=== PATIENT | male | born 1970 | race Caucasian/White ===

== ENCOUNTER 2018-03-29 12:52 | Inpatient (IN) ==
[2018-03-29] MEDS ORDERED: IOPAMIDOL 100 ML BOTTLE IV ONE (12:53)
[2018-03-29] MEDS ORDERED: 0.9 % SODIUM CHLORIDE 2,000 ML IV ONE (13:20)
[2018-03-29] MEDS ORDERED: ONDANSETRON 4 MG/2 ML VIAL IV ONE (13:20)
[2018-03-29] MEDS ORDERED: HYDROmorphone 2 MG/ML VIAL IV PRN ×2 (13:20→19:59)
--- NOTE | 2018-03-29 13:25 | Emergency Department Note ---
Abdominal Pain HPI - General Chief Complaint: Abdominal Pain Stated Complaint: abdominal pain Time Seen by Provider: 03/29/18 13:01 Source: patient Mode of arrival: ambulatory Limitations: no limitations - History of Present Illness HPI Narrative: 48-year-old male who was recently discharged from the hospital on 03/20/2018 after percutaneous drainage of a diverticular abscess. In the week that he has been out he has been actually doing better but then last night he had a hard bowel movement that he had to bear down for and this caused significant increase in his left lower quadrant pain. He was able to eat dinner but he had no appetite this morning and he was feeling nauseous. He continues to have significant left lower quadrant pain. No vomiting fever or shortness of breath I reviewed his discharge summary from Dr. Bob Kumar - Related Data Home Medications Medication Instructions Recorded Confirmed traZODone HCL [Desyrel] 50 mg PO HS 03/22/15 03/12/18 Previous Rx's Medication Instructions Recorded naproxen 375 mg tablet 375 mg PO Q8-12H PRN #90 tab 08/05/15 tamsulosin 0.4 mg capsule 0.4 mg PO QDAY #14 cap 01/29/17 mirabegron ER 50 mg 50 mg PO QDAY 90 Days #90 tab 05/01/17 tablet,extended release 24 hr carbidopa 37.5 mg-levodopa 150 1 tab PO TID #90 tab 05/06/17 mg-entacapone 200 mg tablet vilazodone 20 mg tablet 20 mg PO QDAY #30 tab 05/06/17 vilazodone 40 mg tablet 40 mg PO QDAY #30 tab 05/06/17 gabapentin 300 mg capsule 300 mg PO Q12H #60 cap 09/05/17 fexofenadine 180 mg tablet 180 mg PO Q24H #90 tab 11/04/17 ipratropium bromide 42 mcg (0.06 2 spray INTRANASAL QID #15 ml 11/04/17 %) nasal spray pantoprazole 40 mg tablet,delayed 40 mg PO QDAY #30 tab 11/04/17 release minocycline 50 mg capsule 50 mg PO QDAY #60 cap 01/17/18 armodafinil 200 mg tablet 200 mg PO QAM #30 tab 01/21/18 baclofen 20 mg tablet 20 mg PO TID PRN #270 tab 02/10/18 lorazepam 1 mg tablet 1 mg PO TID PRN #90 tab 02/10/18 albuterol sulfate HFA 90 2 inh INHALATION Q6-8H PRN #18 g 02/12/18 mcg/actuation aerosol inhaler fluticasone 110 mcg/actuation HFA 2 puff INHALATION Q12H #12 g 02/12/18 aerosol inhaler alprazolam 2 mg tablet 2 mg PO .COMPLEX #2 tab 02/20/18 ciprofloxacin 500 mg tablet 500 mg PO BID #28 tab 02/28/18 Amoxicillin/Potassium Clav 875 mg PO TID 10 Days #30 tab 03/07/18 [Augmentin] Ofloxacin 10 ml OT BID 14 Days #1 drops 03/07/18 Ciprofloxacin [Cipro] 500 mg PO BID #40 tab 03/20/18 Potassium Chloride [K-Tab ER] 20 meq PO BID #10 tablet.er 03/20/18 metroNIDAZOLE [Flagyl] 500 mg PO Q8 #60 tab 03/20/18 Allergies Allergy/AdvReac Type Severity Reaction Status Date / Time clindamycin Allergy Mild Rash Verified 03/29/18 12:55 cephalexin AdvReac Mild Hives Verified 03/29/18 12:55 hydrocodone [HYDROCODONE] AdvReac Mild INSOMNIA, Verified 03/29/18 12:55 NAUSEA lidocaine AdvReac Mild Rash Verified 03/29/18 12:55 metronidazole AdvReac Mild Hives Verified 03/29/18 12:55 tramadol [TRAMADOL] AdvReac Mild HYPERACTIVITY, Verified 03/29/18 12:55 NAUSEA Opioids Allergy Mild Anxiety Uncoded 03/12/18 15:38 Review of Systems All systems ED: reviewed and negative except as stated. Abdominal Pain PMH - Past Medical History Attestation: Yes: The following information was validated with the patient. [facility] Narrative: Family History (Last Reviewed 12/20/17 @ 11:23 by Emilia Petersen CMA) Mother Rheumatoid arthritis Father Type 2 diabetes mellitus Essential hypertension Malignant neoplasm of prostate Aunt Parkinson's Disease Brother Parkinson's Disease Maternal Grandmother Parkinson's Disease Medical History (Last Reviewed 12/20/17 @ 11:23 by Emilia Petersen CMA) Testicular pain, right (Chronic) Ankle sprain and strain (Chronic) Back pain with left-sided radiculopathy (Chronic) Perianal abscess (Resolved) Neurogenic bladder (Chronic) Urinary hesitancy (Chronic) Weakness (Chronic) Tremor (Chronic) Parkinson's disease (Chronic 10/08/14) Neck pain (Chronic) Migraine (Chronic) 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) Insomnia (Chronic) Gastritis, acute (Chronic) Gait abnormality (Chronic) Drug abuse (Resolved) Depression (Chronic) Asthma (Chronic) Anxiety (Chronic) Bronchitis (Resolved) Contusion of right foot including toes (Resolved) Epidermal inclusion cyst (Resolved 07/29/14) Laceration (Resolved 04/23/13) Left ankle sprain (Resolved) Past Surgical History (Last Reviewed 12/20/17 @ 11:23 by Emilia Petersen CMA) History of arthroplasty (Resolved 04/26/14) History of colonoscopy (Resolved) History of inguinal hernia repair (Resolved) History of perforation of tympanic membrane (Resolved) History of sinus surgery (Resolved) History of tonsillectomy (Resolved) Status post biopsy of skin (Resolved 07/29/14) Medical history: Reports: other (parkinson's disease, peripheral neuropathy, poor dentition) Family history: Reports: no significant family history - Social History Smoking status: Current every day smoker Alcohol use: Reports: Rarely Drug use: Reports: unknown Physical Exam Thin male no acute distress .normocephalic atraumatic. Conjunctive are clear sclerae white and anicteric. No nasal discharge or congestion. Oropharynx pink and moist. Neck is supple without lymphadenopathy thyromegaly or carotid bruit. Heart is regular rate and rhythm no murmur appreciated. Lungs clear to auscultation bilaterally without wheezes rales rhonchi or respiratory distress. Abdomen soft tender at the left lower quadrant. No peritoneal signs or guarding. No rigidity. No pedal edema. +2 radial pulse. Alert oriented able answer to questions appropriately. Limitations: no limitations Course Vital Signs Temperature 98.1 F 03/29/18 12:52 Pulse Rate 96 H 03/29/18 12:52 Respiratory Rate 20 03/29/18 12:52 Blood Pressure 136/85 03/29/18 12:52 Pulse Oximetry (%) 100 03/29/18 12:52 Temperature 98.1 F 03/29/18 12:52 Pulse Rate 79 03/29/18 15:16 Respiratory Rate 20 03/29/18 12:52 Blood Pressure 133/88 03/29/18 15:16 Pulse Oximetry (%) 100 03/29/18 15:16 Abdominal Pain - Lab Data Lab results reviewed: Yes I reviewed the patient's lab results. Result diagrams: 03/29/18 13:30 03/29/18 13:30 Lab Results 03/29/18 03/29/18 03/29/18 Range/Units 13:30 13:30 13:51 WBC 13.5 H (4.5-11.0) K/mcL RBC 4.64 (4.50-5.90) M/mcL Hgb 14.4 (13.5-16.5) g/dL Hct 43.0 (41.0-55.0) % POC Hct 45.0 (41.0-55.0) % MCV 92.7 (80.0-100.0) fL MCH 30.9 (26.0-34.0) pg MCHC 33.3 (31.0-36.0) g/dL RDW 13.8 (11.5-14.5) % Plt Count 567 H (140-440) K/mcL MPV 9.4 (7.4-10.4) fL Gran % 75.7 (38.0-78.0) % Lymph % (Auto) 15.8 (15.5-49.0) % Newton % (Auto) 7.3 (1.0-12.0) % Eos % (Auto) 0.5 (0.0-7.0) % Baso % (Auto) 0.7 (0.0-2.0) % Gran # 10.2 H (1.8-8.0) K/mcL Lymph # (Auto) 2.1 (1.5-4.8) K/mcL Newton # (Auto) 1.0 H (0.1-0.9) K/mcL Eos # (Auto) 0.1 (0.0-0.7) K/mcL Baso # (Auto) 0.1 (0.0-0.3) K/mcL VBG Lactic Acid 0.8 (0.5-2.0) mmol/L POC Sodium 139 (133-145) mmol/L Sodium 135 (133-145) mmol/L POC Potassium 4.2 (3.3-5.1) mmol/L Potassium 4.3 (3.3-5.1) mmol/L POC Chloride 101 (96-108) mmol/L Chloride 96 (96-108) mmol/L Carbon Dioxide 24 (22-30) mmol/L POC Total CO2 24 (22-30) mmol/L Anion Gap 15.0 (8-16) POC BUN 11 (6-20) mg/dl BUN 11 (6-20) mg/dl Creatinine 0.8 (0.7-1.2) mg/dl POC Creatinine 0.8 (0.7-1.2) mg/dl GFR Calculation 106 Glucose 113 H (70-105) mg/dL POC Glucose 117 H (70-105) mg/dL Calcium 9.7 (8.6-10.4) mg/dl POC WB Ioniz Calcium 1.21 (1.16-1.32) mmol/L Total Bilirubin 0.5 (0.0-1.0) mg/dL AST 14 (0-37) U/l ALT 8 (0-40) U/l Alkaline Phosphatase 71 (39-117) U/L Total Protein 8.0 (5.9-8.4) gm/dL Albumin 4.2 (3.2-5.2) gm/dL Globulin 3.8 H (2.2-3.7) gm/dL Albumin/Globulin Ratio 1.1 (1.0-2.3) Lipase 68 H (7-60) U/L - Radiology Data Radiology results reviewed: Yes I reviewed the patient's radiology results. 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 Treatment started with Zofran Dilaudid and IV fluids I discussed patient's results with him. I then discussed the patient with Dr. Bob Kumar, general surgeon. He agreed to accept the patient for further care and evaluation in the hospital. I wrote transition orders Disposition: Xfer As Inpt ([facility]) Condition: Serious Referrals: Pelon Stephens MD [Primary Care Provider] -
[2018-03-29 14:04] LABS: Basophils # (Auto) 0.1 K/mcL (0.0-0.3); Basophils % (Auto) 0.7 % (0.0-2.0); Eosinophils # (Auto) 0.1 K/mcL (0.0-0.7); Eosinophils % (Auto) 0.5 % (0.0-7.0); Granulocytes % (Auto) 75.7 % (38.0-78.0); Lymphocytes # (Auto) 2.1 K/mcL (1.5-4.8); Lymphocytes % (Auto) 15.8 % (15.5-49.0); Mean Cell Volume 92.7 fL (80.0-100.0); Mean Corpuscular HGB Conc 33.3 g/dL (31.0-36.0); Mean Corpuscular Hemoglobin 30.9 pg (26.0-34.0); Monocytes % (Auto) 7.3 % (1.0-12.0); Platelet Count 567 K/mcL (140-440); RBC 4.64 M/mcL (4.50-5.90); Red Cell Distribution Width 13.8 % (11.5-14.5)
[2018-03-29 14:16] LABS: ALT/SGPT 8 U/l (0-40); Albumin 4.2 gm/dL (3.2-5.2); Albumin/Globulin Ratio 1.1 (1.0-2.3); Alkaline Phosphatase 71 U/L (39-117); Blood Urea Nitrogen 11 mg/dl (6-20); Lipase 68 U/L (7-60)
--- NOTE | 2018-03-29 16:25 | Cat Scan Report ---
CLINICAL INFORMATION: History of diverticulitis with pelvic abscesses. A right-sided abscess was drained percutaneously. Patient now presents with increasing pain COMPARISON: Previous CT scans dated 03/16/2018, 03/12/2018, 03/07/2018 TECHNIQUE: Axial images were obtained through the abdomen and pelvis. Sagittally and coronally reformatted images. 80 mL contrast material injected intravenously. Oral contrast material was given FINDINGS: There is contrast material throughout the colon. There is small bowel contrast material. No mechanical small bowel obstruction. No small bowel dilatation. No pneumoperitoneum. No biliary or portal venous gas. No pneumatosis. Patient has a history of diverticulitis with pelvic abscesses. Patient previously (03/13/2018) underwent transgluteal drainage of a right pelvic abscess. Drainage catheter has been removed. There has been recurrence of of the pericolonic abscess. This now has a thick irregular wall and contains fluid and gas. This measures approximately 4.8 x 3.8 x 2.9 cm. There is a second abscess higher in the pelvis and to the left of midline. This is adjacent to sigmoid colon and small bowel. This is irregular in configuration. This has a thick wall and contains fluid and some gas. This measures approximately 2.6 x 3.7 x 2.7 cm. No significant free intraperitoneal fluid. Lung bases are negative. No parenchymal infiltrate or mass. No pleural fluid. No pericardial fluid. Negative liver. No focal intrahepatic abnormalities. Liver contour is smooth. Gallbladder is present. There may be subtle gallstones although this is not definite. No dilated bile ducts. Pancreas is negative. No pancreatic mass. Spleen is negative. No splenomegaly. Adrenal glands are negative. Kidneys are negative. No hydronephrosis. No solid or cystic mass. No hydroureter. Urinary bladder is negative. No bladder calculi. Lumbar spine, sacrum, and pelvis are negative. IMPRESSION: 1. Recurrent right pelvic, pericolonic abscess 2. Second abscess located higher in the pelvis and to the left of midline. This is adjacent to small and large bowel. The exam was performed using radiation dose optimization techniques including, but not limited to, automated exposure control, adjustment of the mA and/or kV according to patient size and use of iterative reconstruction technique. Interpreted and Authenticated by: Jose Medina 03/29/18
[2018-03-29] MEDS ORDERED: metroNIDAZOLE 500 MG/100 ML BAG IV ONE (16:35)
[2018-03-29] MEDS ORDERED: CIPROFLOXACIN 400 MG/200 ML BAG IV ONE (16:35)
[2018-03-29] MEDS ORDERED: ONDANSETRON 4 MG/2 ML VIAL IV PRN (16:36)
--- NOTE | 2018-03-29 20:12 | General Surg History&Physical ---
History of Present Illness Patient information: Note initiated : 03/29/18 at 8:10 pm Service Date, if different from initiated Date: [] Patient: Se Mccoy a 48 y/o M admitted on 03/29/18 for abdominal pain. Chief Complaint: [] HPI: Mr. Mccoy is a 48 year old M admitted with chronic persistent diverticulitis and multiple pelvic abscesses. The patient initially presented on 03 December with evidence of acute diverticulitis.. He was treated with oral antibiotics and did well until 07 March with he again developed severe left lower quadrant and suprapubic pain.. He again was noted to have diverticulitis and was treated with oral medication but did not improve. He was admitted to the hospital on 12 March with white blood count of 18,000 and history of severe pain fever and chills. hE HAD ACUTE diverticulitis with pericolonic abscess and pelvic abscess. Percutaneous drainage of the pelvic abscess was completed on 13 March.. Fluid did not culture any organisms.. Follow-up CT showed resolution of the pelvic abscess but too small collections that were new. The patient remained stable and was discharged home on April 06 on oral ciprofloxacin and Flagyl. The patient states that he initially improved but started having more pain on yesterday. While having a bowel movement earlier today he had severe pain and nausea. CT of the abdomen shows recurrence of the right-sided pelvic abscess and 2 other abscesses in the pelvis on the left side. He has failed nonoperative treatment and is counseled for sigmoid colectomy with Rowe's procedure. He is advised that he will have re- anastomosis in about 3 months if he does well otherwise. Review of Systems - Constitutional anorexia, fatigue, fever(s), headache(s), malaise, night sweats, weakness - EENT Ears: left: ear discharge, tinnitus, bilateral: decreased hearing, earache Nose, mouth and throat: abnormal hearing, headache(s), neck pain - Cardiovascular dyspnea on exertion, no chest pain at rest, no chest pain with activity, no pedal edema - Respiratory wheezing, no cough, no pain on inspirtation - Gastrointestinal abdominal pain, bloating, constipation, heartburn, nausea - Genitourinary change in urinary stream, difficulty urinating, urinary frequency, urinary hesitancy, urinary urgency - Musculoskeletal abnormal gait, arthralgias, back pain, neck pain, radiating pain into limb - Integumentary no bleeding lesions, no changing lesions, no new lesions, no pruritus, no rash - Neurological abnormal gait, abnormal movements, dizziness, headache(s), lack of coordination , paresthesias, tremor(s), weakness - Psychiatric abnormal sleep pattern, anxiety, depression - Endocrine excessive sweating, fatigue - Hematologic/Lymphatic no easy bleeding, no easy bruising, no lymphadenopathy - Allergic/Immunologic no tongue swelling, no throat swelling, no seasonal rhinorrhea, no uticaria, no wheezing, no lip swelling Past History Past medical history: Parkinson's disease Chronic otitis media Chronic asthma Degenerative arthritis Degenerative disc disease Past surgical history: Right inguinal hernia repair Past family history: Parkinson's disease Diabetes mellitus Hypertension Past social history: Presently disabled Reveal a smoker Occasional drinker of alcohol Frequent marijuana use Medications and Allergies Home Medications Medication Instructions Recorded Confirmed Type traZODone HCL [Desyrel] 50 mg PO HS 03/22/15 03/29/18 History naproxen 375 mg tablet 375 mg PO Q8-12H PRN #90 tab 08/05/15 03/29/18 Rx tamsulosin 0.4 mg capsule 0.4 mg PO QDAY #14 cap 01/29/17 03/29/18 Rx mirabegron ER 50 mg 50 mg PO QDAY 90 Days #90 tab 05/01/17 03/29/18 Rx tablet,extended release 24 hr carbidopa 37.5 mg-levodopa 150 1 tab PO TID #90 tab 05/06/17 03/29/18 Rx mg-entacapone 200 mg tablet vilazodone 20 mg tablet 20 mg PO QDAY #30 tab 05/06/17 03/29/18 Rx vilazodone 40 mg tablet 40 mg PO QDAY #30 tab 05/06/17 03/29/18 Rx gabapentin 300 mg capsule 300 mg PO Q12H #60 cap 09/05/17 03/29/18 Rx fexofenadine 180 mg tablet 180 mg PO Q24H #90 tab 11/04/17 03/29/18 Rx ipratropium bromide 42 mcg (0.06 2 spray INTRANASAL QID #15 ml 11/04/17 Rx %) nasal spray pantoprazole 40 mg tablet,delayed 40 mg PO QDAY #30 tab 06/18/18 11/10/18 Rx release minocycline 50 mg capsule 50 mg PO QDAY #60 cap 01/17/18 03/29/18 Rx armodafinil 200 mg tablet 200 mg PO QAM #30 tab 01/21/18 03/29/18 Rx baclofen 20 mg tablet 20 mg PO TID PRN #270 tab 02/10/18 03/29/18 Rx lorazepam 1 mg tablet 1 mg PO TID PRN #90 tab 02/10/18 03/29/18 Rx albuterol sulfate HFA 90 2 inh INHALATION Q6-8H PRN #18 g 02/12/18 03/29/18 Rx mcg/actuation aerosol inhaler fluticasone 110 mcg/actuation HFA 2 puff INHALATION Q12H #12 g 02/12/18 Rx aerosol inhaler alprazolam 2 mg tablet 2 mg PO .COMPLEX #2 tab 02/20/18 03/29/18 Rx ciprofloxacin 500 mg tablet 500 mg PO BID #28 tab 02/28/18 03/29/18 Rx Amoxicillin/Potassium Clav 875 mg PO TID 10 Days #30 tab 03/07/18 03/29/18 Rx [Augmentin] Ofloxacin 10 ml OT BID 14 Days #1 drops 03/07/18 03/29/18 Rx Ciprofloxacin [Cipro] 500 mg PO BID #40 tab 03/20/18 03/29/18 Rx Potassium Chloride [K-Tab ER] 20 meq PO BID #10 tablet.er 03/20/18 03/29/18 Rx metroNIDAZOLE [Flagyl] 500 mg PO Q8 #60 tab 03/20/18 03/29/18 Rx Allergies Allergy/AdvReac Type Severity Reaction Status Date / Time clindamycin Allergy Mild Rash Verified 03/29/18 12:55 cephalexin AdvReac Mild Hives Verified 03/29/18 12:55 hydrocodone [HYDROCODONE] AdvReac Mild INSOMNIA, Verified 03/29/18 12:55 NAUSEA lidocaine AdvReac Mild Rash Verified 03/29/18 12:55 metronidazole AdvReac Mild Hives Verified 03/29/18 12:55 tramadol [TRAMADOL] AdvReac Mild HYPERACTIVITY, Verified 03/29/18 12:55 NAUSEA Opioids Allergy Mild Anxiety Uncoded 03/12/18 15:38 Exam Temp Pulse Resp BP Pulse Ox 98.2 F 79 18 133/88 98 03/29/18 17:55 03/29/18 17:55 03/29/18 17:55 03/29/18 17:55 03/29/18 17:55 - General physical appearance well developed, well nourished, no distress, moderate pain, chronically ill - Eyes PERRL, normal ocular movement - ENT normal pinna, normal nares, normal mucosa, no congestion, decreased hearing, other (llleft otitis media chronic) - Head Head exam IM: Present: atraumatic, normocephalic - Neck no masses, no bruits, trachea midline, no lymphadenopathy, no venous distension - Cardiovascular Cardiovascular exam IM: Present: normal rate and rhythm - Respiratory normal expansion, normal respiratory effort, clear to percussion, clear to auscultation - Abdomen Abdomen: Present: soft, tender ( tenderness to palpation in left lower quadrant AND SUPRAPUBIC AREA; good active bowel sounds), bowel sounds Hernia: Present: none - Genitourinary Present: normal penis with no external lesions - Integumentary Present: no rash, no growths, no abnormal pigmentation - Neurologic Present: normal coordination, normal sensation, other ( unsteady gait and stance) - Musculoskeletal Present: normal posture - Psychiatric Present: oriented to time, oriented to person, oriented to place, speech is normal, memory intact Assessment and Plan (1) Diverticular disease of intestine with perforation and abscess Scheduled for LAPAROTOMY WITH sigmoid resection and colostomy in the morning Continue antibiotics IV Status: Acute (2) Otitis media of left ear with rupture of tympanic membrane Continue home medications Status: Acute (3) Depression Restart home medications as soon as possible Status: Chronic (4) Neurogenic bladder Hull catheter postoperatively Status: Chronic (5) Parkinson's disease Restart home meds as soon as possible Status: Chronic Comment: with profound fatigue and lethargy, requiring stimulants for control
[2018-03-29] MEDS ORDERED: 0.9 % SODIUM CHLORIDE 250 ML IV SCH (20:15)
[2018-03-29] MEDS ORDERED: BACLOFEN 10 MG TABLET PO PRN (20:42)
[2018-03-29] MEDS ORDERED: ALBUTEROL SULFATE 1 PUFF INHALER INH PRN (20:42)
[2018-03-29] MEDS ORDERED: LORazepam 2 MG/ML VIAL IV PRN (20:46)
[2018-03-29] MEDS: GABAPENTIN 300 MG CAPSULE PO SCH (20:54)
[2018-03-29] MEDS: ENTACAPONE 200 MG PO SCH (20:56)
[2018-03-29] MEDS: CARBIDOPA PO SCH (20:56)
[2018-03-29] MEDS: LEVODOPA PO SCH (20:56)
[2018-03-29] MEDS: OFLOXACIN BOTH EARS SCH (20:57)
[2018-03-29] MEDS ORDERED: LORazepam 2 MG/ML VIAL IV ONE (21:00)
[2018-03-29 21:11] LABS: Basophils # (Auto) 0.1 K/mcL (0.0-0.3); Basophils % (Auto) 0.6 % (0.0-2.0); Eosinophils # (Auto) 0.1 K/mcL (0.0-0.7); Eosinophils % (Auto) 0.6 % (0.0-7.0); Granulocytes % (Auto) 68.8 % (38.0-78.0); Lymphocytes # (Auto) 2.6 K/mcL (1.5-4.8); Lymphocytes % (Auto) 21.7 % (15.5-49.0); Mean Cell Volume 91.8 fL (80.0-100.0); Mean Corpuscular HGB Conc 34.1 g/dL (31.0-36.0); Mean Corpuscular Hemoglobin 31.3 pg (26.0-34.0); Monocytes % (Auto) 8.3 % (1.0-12.0); Platelet Count 519 K/mcL (140-440); RBC 4.41 M/mcL (4.50-5.90); Red Cell Distribution Width 13.4 % (11.5-14.5)
[2018-03-29] MEDS ORDERED: traZODone HCL 50 MG TABLET ONE (22:17)
[2018-03-29] MEDS: 0.9 % SODIUM CHLORIDE 1,000 ML IV SCH (23:58)
[2018-03-29] MEDS: NICOTINE 21 MG PATCH TOPICAL SCH (23:59)
[2018-03-30] MEDS: 0.9 % SODIUM CHLORIDE 1,000 ML IV SCH ×6 (01:20→21:52)
[2018-03-30] MEDS: metroNIDAZOLE 500 MG/100 ML BAG IV SCH ×3 (01:22→12:00)
[2018-03-30 05:26] LABS: Basophils # (Auto) 0.1 K/mcL (0.0-0.3); Basophils % (Auto) 0.5 % (0.0-2.0); Eosinophils # (Auto) 0.1 K/mcL (0.0-0.7); Eosinophils % (Auto) 0.5 % (0.0-7.0); Granulocytes % (Auto) 70.9 % (38.0-78.0); Lymphocytes # (Auto) 2.2 K/mcL (1.5-4.8); Lymphocytes % (Auto) 19.3 % (15.5-49.0); Mean Cell Volume 92.9 fL (80.0-100.0); Mean Corpuscular HGB Conc 33.7 g/dL (31.0-36.0); Mean Corpuscular Hemoglobin 31.3 pg (26.0-34.0); Monocytes % (Auto) 8.8 % (1.0-12.0); Platelet Count 492 K/mcL (140-440); RBC 4.22 M/mcL (4.50-5.90); Red Cell Distribution Width 13.4 % (11.5-14.5)
[2018-03-30 06:01] LABS: ALT/SGPT < 5 U/l (0-40); Albumin 3.8 gm/dL (3.2-5.2); Albumin/Globulin Ratio 1.2 (1.0-2.3); Alkaline Phosphatase 61 U/L (39-117); Bilirubin,Direct < 0.2 mg/dL (0.0-0.3); Blood Urea Nitrogen 8 mg/dl (6-20); Gamma Glutamyl Transpeptidase 26 U/L (8-61); Uric Acid 4.3 mg/dL (2.5-8.0)
[2018-03-30] MEDS ORDERED: CIPROFLOXACIN 400 MG/200 ML BAG IV SCH (07:00)
[2018-03-30] MEDS ORDERED: PANTOPRAZOLE 40 MG VIAL IV SCH (07:30)
[2018-03-30] MEDS ORDERED: LIDOCAINE HCL/PF 100 MG/5 ML SYRINGE IV ONE (09:20)
[2018-03-30] MEDS ORDERED: GLYCOPYRROLATE 0.2 MG/ML VIAL IV ONE (09:20)
[2018-03-30] MEDS ORDERED: MIDAZOLAM 5 MG/5 ML VIAL IV ONE (09:20)
[2018-03-30] MEDS ORDERED: ROCURONIUM 10 MG/ML ML IV ONE (09:20)
[2018-03-30] MEDS ORDERED: DEXAMETHASONE 10 MG/ML VIAL IV ONE (09:20)
[2018-03-30] MEDS ORDERED: NEOSTIGMINE 1 MG/ML VIAL IV ONE (09:20)
[2018-03-30] MEDS ORDERED: PROPOFOL 200 MG/20 ML VIAL IV ONE (09:20)
[2018-03-30] MEDS ORDERED: HETASTARCH 6% 500 ML BAG IV ONE (09:20)
[2018-03-30] MEDS ORDERED: fentaNYL 250 MCG/5 ML VIAL IV ONE (09:20)
[2018-03-30] MEDS ORDERED: SUCCINYLCHOLINE 20 MG/ML ML IV ONE (09:20)
[2018-03-30] MEDS ORDERED: ONDANSETRON 4 MG/2 ML VIAL IV ONE (09:20)
[2018-03-30] MEDS: ENTACAPONE 200 MG PO SCH ×3 (09:22→21:17)
[2018-03-30] MEDS: OFLOXACIN BOTH EARS SCH ×2 (09:22→21:17)
[2018-03-30] MEDS: CARBIDOPA PO SCH ×3 (09:22→21:17)
[2018-03-30] MEDS: GABAPENTIN 300 MG CAPSULE PO SCH ×2 (09:22→21:17)
[2018-03-30] MEDS: LEVODOPA PO SCH ×3 (09:22→21:17)
[2018-03-30] MEDS: NICOTINE 21 MG PATCH TOPICAL SCH (09:23)
[2018-03-30] MEDS ORDERED: BACITRACIN 50,000 UNIT VIAL IR ONE ×2 (10:45→11:12)
[2018-03-30] MEDS ORDERED: ACETAMINOPHEN 1,000 MG/100 ML BOTTLE IV ONE (11:35)
[2018-03-30] MEDS ORDERED: FLUMAZENIL 0.1 MG/ML ML IV PRN (11:35)
[2018-03-30] MEDS ORDERED: IPRATROPIUM/ALBUTEROL 3 ML AMPUL.NEB NEB PRN (11:35)
[2018-03-30] MEDS ORDERED: LACTATED RINGERS 250 ML IV PRN (11:35)
[2018-03-30] MEDS ORDERED: diphenhydrAMINE 50 MG/ML VIAL IV PRN (11:35)
[2018-03-30] MEDS ORDERED: PROMETHAZINE 25 MG/ML VIAL IV PRN (11:35)
[2018-03-30] MEDS ORDERED: NALOXONE HCL 0.4 MG/ML VIAL IV PRN (11:35)
[2018-03-30] MEDS ORDERED: BENZOCAINE/MENTHOL 1 LOZENGE PO PRN (11:35)
[2018-03-30] MEDS ORDERED: ONDANSETRON 4 MG/2 ML VIAL IV PRN (11:35)
[2018-03-30] MEDS ORDERED: LACTATED RINGERS 1,000 ML IV SCH (11:45)
--- NOTE | 2018-03-30 11:56 | Brief Operative Note ---
Date of procedure: 03/30/18 Pre-op diagnosis: recurrent diverticulitis with pelvic abscesses Post-op diagnosis: other (recurrent diverticulitis with multiple pelvis abscesses) Procedure: sigmoid colectomy with drainage of multiple pelvic abscesses and colostomy Grafts/Implants: No (ELEAZAR DRAIN X 2 ) Anesthesia: GETA Findings: EXTENSIVE INFLAMMATORY DISEASE OF PELVIS WITH 5 SEPARATE DEFINED ABSCESSES AND INFLAMMATION INVOLVING BLADDER,SIGMOID COLON AND RECTUM AND 4 LOOPS OF SMALL BOWEL AND OMENTUM Complications: none Surgeon: Shanell Kumar Estimated blood loss (cc): 150 Specimens Removed/Pathology: other (SIGMOID COLON) Condition: stable Disposition: PACU
[2018-03-30] MEDS: fentaNYL 100 MCG/2 ML VIAL IV PRN ×5 (12:08→12:52)
[2018-03-30] MEDS: HYDROmorphone 2 MG/ML VIAL IV PRN ×7 (12:32→22:42)
[2018-03-30] MEDS: MEPERIDINE 25 MG/ML SYRINGE IV PRN ×2 (12:40→12:54)
[2018-03-30] MEDS ORDERED: ALBUTEROL SULFATE 1 PUFF INHALER INH PRN (13:45)
[2018-03-30] MEDS: ACETAMINOPHEN 1,000 MG in PREMIX 1 BAG IV SCH ×2 (13:52→19:26)
[2018-03-30] MEDS: ONDANSETRON 4 MG/2 ML VIAL IV PRN (16:07)
[2018-03-30] MEDS: PANTOPRAZOLE 40 MG VIAL IV SCH (17:15)
[2018-03-30] MEDS: METOCLOPRAMIDE 10 MG/2 ML VIAL IV SCH (17:16)
[2018-03-30] MEDS ORDERED: metroNIDAZOLE 500 MG/100 ML BAG IV SCH (18:00)
[2018-03-30] MEDS: LORazepam 2 MG/ML VIAL IV PRN (19:00)
[2018-03-30] MEDS ORDERED: traZODone HCL 50 MG TABLET PO SCH (21:00)
[2018-03-30] MEDS: traZODone HCL 50 MG TABLET PO SCH (21:16)
[2018-03-31] MEDS: ACETAMINOPHEN 1,000 MG in PREMIX 1 BAG IV SCH ×2 (00:59→07:11)
[2018-03-31] MEDS: METOCLOPRAMIDE 10 MG/2 ML VIAL IV SCH ×4 (00:59→17:27)
[2018-03-31] MEDS: LORazepam 2 MG/ML VIAL IV PRN ×2 (01:14→20:45)
[2018-03-31] MEDS: 0.9 % SODIUM CHLORIDE 1,000 ML IV SCH ×6 (03:00→20:04)
[2018-03-31] MEDS: HYDROmorphone 2 MG/ML VIAL IV PRN ×10 (03:00→23:01)
[2018-03-31 05:38] LABS: Basophils # (Auto) 0 K/mcL (0.0-0.3); Basophils % (Auto) 0.2 % (0.0-2.0); Eosinophils # (Auto) 0 K/mcL (0.0-0.7); Eosinophils % (Auto) 0.1 % (0.0-7.0); Granulocytes % (Auto) 74.1 % (38.0-78.0); Lymphocytes # (Auto) 2.3 K/mcL (1.5-4.8); Lymphocytes % (Auto) 15.6 % (15.5-49.0); Mean Cell Volume 92.7 fL (80.0-100.0); Mean Corpuscular HGB Conc 33.4 g/dL (31.0-36.0); Monocytes # (Auto) 1.5 K/mcL (0.1-0.9); Platelet Count 474 K/mcL (140-440); RBC 4.09 M/mcL (4.50-5.90); Red Cell Distribution Width 13.7 % (11.5-14.5)
[2018-03-31 06:10] LABS: ALT/SGPT 14 U/l (0-40); Albumin 2.7 gm/dL (3.2-5.2); Albumin/Globulin Ratio 0.9 (1.0-2.3); Alkaline Phosphatase 50 U/L (39-117); Bilirubin,Direct < 0.2 mg/dL (0.0-0.3); Blood Urea Nitrogen 9 mg/dl (6-20); Gamma Glutamyl Transpeptidase 21 U/L (8-61)
[2018-03-31] MEDS: PANTOPRAZOLE 40 MG VIAL IV SCH ×2 (07:13→17:27)
[2018-03-31] MEDS: CARBIDOPA PO SCH ×3 (07:14→20:45)
[2018-03-31] MEDS: LEVODOPA PO SCH ×3 (07:14→20:45)
[2018-03-31] MEDS: ENTACAPONE 200 MG PO SCH ×3 (07:14→20:45)
[2018-03-31] MEDS: GABAPENTIN 300 MG CAPSULE PO SCH ×2 (07:14→20:45)
[2018-03-31] MEDS: OFLOXACIN BOTH EARS SCH ×2 (07:15→20:46)
[2018-03-31] MEDS ORDERED: ACETAMINOPHEN 1,000 MG/100 ML BOTTLE IV ONE (07:15)
[2018-03-31] MEDS: NICOTINE 21 MG PATCH TOPICAL SCH (09:10)
[2018-03-31] MEDS: ONDANSETRON 4 MG/2 ML VIAL IV PRN ×2 (10:34→15:57)
[2018-03-31] MEDS ORDERED: BENZOCAINE 1 SPRAY BOTTLE TOPICAL PRN (15:29)
--- NOTE | 2018-03-31 15:36 | XRay Report ---
CLINICAL INFORMATION: Postsurgical follow-up. Nasogastric tube placement. TECHNIQUE: AP supine abdomen COMPARISON: Previous CT scan dated 03/29/2018 FINDINGS: There is an esophagogastric tube with its tip in the body of the stomach. There are surgical drains in the pelvis. There is a left lower quadrant ostomy. There is contrast material within the colon. No dilated gas-filled small bowel. No pneumatosis. No biliary or portal venous gas. There are skin brice in a vertical midline incision IMPRESSION: Esophagogastric tube in the stomach. Interpreted and Authenticated by: Jose Medina 03/31/18
--- NOTE | 2018-03-31 15:37 | General Surgery Progress Note ---
Subjective Patient reports: still having pain, no flatus, no bowel movement, afebrile Narrative: Note initiated : 03/31/18 at 3:35 pm Service Date, if different from initiated Date: [] Patient: Se Mccoy 48 y/o M admitted on 03/29/18 for abdominal pain. Chief Complaint: [patient is stable except for incisional discomfort.. He has good active bowel sounds.. He denies nausea. He has been afebrile. White blood count is 14.8 and hemoglobin is 12.7.. CMP is normal.] Objective Temp Pulse Resp BP Pulse Ox 97.6 F 82 16 120/86 96 03/31/18 15:24 03/31/18 04:00 03/31/18 15:24 03/31/18 15:24 03/31/18 15:24 - Additional Data Intake & Output - Last 24 hours: Intake & Output 03/29/18 03/30/18 03/31/18 04/01/18 05:59 05:59 05:59 05:59 Intake Total 2320 / 2320 5700 / 5700 1100 / 1100 Output Total 1550 / 1550 2325 / 2325 70 / 70 Balance 770 / 770 3375 / 3375 1030 / 1030 Weight 178 lb 8 oz 180 lb 180 lb - General physical appearance moderate distress, moderate pain - Eyes PERRL, normal ocular movement - ENT normal pinna, normal nares, normal mucosa, no hearing loss, no congestion - Neck no masses, no bruits, trachea midline, no lymphadenopathy, no venous distension - Respiratory normal expansion, normal respiratory effort, clear to auscultation, other ( lungs are clear with good active breath sounds and no rales or wheezes) - Cardiovascular Cardiovascular exam: Present: normal rate and rhythm, RRR, +S1, +S2. Absent: JVD, tachycardia - Abdomen tender ( diffusely tender abdomen; stoma looks good; incision is unremarkable; ELEAZAR drainage is serosanguineous) - Integumentary no rash, no growths, no abnormal pigmentation - Neurologic normal coordination, normal sensation - Psychiatric oriented to time, oriented to person, oriented to place, speech is normal, memory intact - Labs 03/31/18 04:50 03/31/18 04:50 Diabetes panel 03/31/18 Range/Units 04:50 Sodium 135 (133-145) mmol/L Potassium 4.3 (3.3-5.1) mmol/L Chloride 102 (96-108) mmol/L Carbon Dioxide 23 (22-30) mmol/L BUN 9 (6-20) mg/dl Creatinine 0.6 L (0.7-1.2) mg/dl Glucose 108 H (70-105) mg/dL Calcium 8.4 L (8.6-10.4) mg/dl AST 13 (0-37) U/l ALT 14 (0-40) U/l Alkaline Phosphatase 50 (39-117) U/L Total Protein 5.7 L (5.9-8.4) gm/dL Albumin 2.7 L (3.2-5.2) gm/dL Triglycerides 57 (<150) mg/dl Calcium panel 03/31/18 Range/Units 04:50 Calcium 8.4 L (8.6-10.4) mg/dl Phosphorus 3.4 (2.7-4.5) mg/dL Albumin 2.7 L (3.2-5.2) gm/dL Pituitary panel 03/31/18 Range/Units 04:50 Sodium 135 (133-145) mmol/L Potassium 4.3 (3.3-5.1) mmol/L Chloride 102 (96-108) mmol/L Carbon Dioxide 23 (22-30) mmol/L BUN 9 (6-20) mg/dl Creatinine 0.6 L (0.7-1.2) mg/dl Glucose 108 H (70-105) mg/dL Calcium 8.4 L (8.6-10.4) mg/dl Adrenal panel 03/31/18 Range/Units 04:50 Sodium 135 (133-145) mmol/L Potassium 4.3 (3.3-5.1) mmol/L Chloride 102 (96-108) mmol/L Carbon Dioxide 23 (22-30) mmol/L BUN 9 (6-20) mg/dl Creatinine 0.6 L (0.7-1.2) mg/dl Glucose 108 H (70-105) mg/dL Calcium 8.4 L (8.6-10.4) mg/dl Total Bilirubin 0.5 (0.0-1.0) mg/dL AST 13 (0-37) U/l ALT 14 (0-40) U/l Alkaline Phosphatase 50 (39-117) U/L Total Protein 5.7 L (5.9-8.4) gm/dL Albumin 2.7 L (3.2-5.2) gm/dL Assessment and Plan (1) Diverticular disease of intestine with perforation and abscess Status: Acute Assessment and plan: Continue present therapy Give oral meds with sips of water Current Visit: Yes (2) Otitis media of left ear with rupture of tympanic membrane Status: Acute Current Visit: No (3) Depression Status: Chronic Current Visit: No (4) Neurogenic bladder Status: Chronic Current Visit: No (5) Parkinson's disease Problem details: with profound fatigue and lethargy, requiring stimulants for control Status: Chronic Current Visit: No - Time Spent With Patient Total time spent is greater than 50% in coordination of care (as documented) at patient's floor/unit and/or counseling patient:
[2018-03-31] MEDS: metroNIDAZOLE 500 MG/100 ML BAG IV SCH (17:27)
[2018-03-31] MEDS: PIPERACILLIN SODIUM/TAZOBACTAM 3.375 GM in DEXTROSE 5% IN WATER 50 ML IV SCH ×2 (17:30→23:04)
[2018-03-31] MEDS: traZODone HCL 50 MG TABLET PO SCH (20:45)
[2018-04-01] MEDS: metroNIDAZOLE 500 MG/100 ML BAG IV SCH ×4 (01:02→17:59)
[2018-04-01] MEDS: HYDROmorphone 2 MG/ML VIAL IV PRN ×10 (01:02→21:44)
[2018-04-01] MEDS: METOCLOPRAMIDE 10 MG/2 ML VIAL IV SCH ×4 (01:06→17:59)
[2018-04-01] MEDS: PIPERACILLIN SODIUM/TAZOBACTAM 3.375 GM in DEXTROSE 5% IN WATER 50 ML IV SCH ×4 (05:00→22:54)
[2018-04-01] MEDS: 0.9 % SODIUM CHLORIDE 1,000 ML IV SCH ×4 (05:01→21:44)
[2018-04-01 05:47] LABS: Basophils # (Auto) 0.1 K/mcL (0.0-0.3); Basophils % (Auto) 0.6 % (0.0-2.0); Eosinophils # (Auto) 0.1 K/mcL (0.0-0.7); Eosinophils % (Auto) 0.8 % (0.0-7.0); Granulocytes % (Auto) 72.4 % (38.0-78.0); Lymphocytes # (Auto) 1.9 K/mcL (1.5-4.8); Mean Cell Volume 92.5 fL (80.0-100.0); Mean Corpuscular HGB Conc 33.8 g/dL (31.0-36.0); Mean Corpuscular Hemoglobin 31.3 pg (26.0-34.0); Monocytes # (Auto) 1.2 K/mcL (0.1-0.9); Monocytes % (Auto) 10.2 % (1.0-12.0); Platelet Count 428 K/mcL (140-440); RBC 3.78 M/mcL (4.50-5.90); Red Cell Distribution Width 13.6 % (11.5-14.5)
[2018-04-01 06:37] LABS: ALT/SGPT 11 U/l (0-40); Albumin 2.9 gm/dL (3.2-5.2); Albumin/Globulin Ratio 1.1 (1.0-2.3); Alkaline Phosphatase 48 U/L (39-117); Bilirubin,Direct < 0.2 mg/dL (0.0-0.3); Blood Urea Nitrogen 8 mg/dl (6-20); Gamma Glutamyl Transpeptidase 20 U/L (8-61); Uric Acid 2.9 mg/dL (2.5-8.0)
[2018-04-01] MEDS: PANTOPRAZOLE 40 MG VIAL IV SCH ×2 (07:26→17:15)
[2018-04-01] MEDS: ENTACAPONE 200 MG PO SCH ×3 (08:55→20:22)
[2018-04-01] MEDS: CARBIDOPA PO SCH ×3 (08:55→20:22)
[2018-04-01] MEDS: VILAZODONE HCL 20 MG PO SCH (08:55)
[2018-04-01] MEDS: LEVODOPA PO SCH ×3 (08:55→20:22)
[2018-04-01] MEDS: GABAPENTIN 300 MG CAPSULE PO SCH ×2 (08:55→20:22)
[2018-04-01] MEDS: OFLOXACIN BOTH EARS SCH ×2 (08:55→20:22)
[2018-04-01] MEDS: NICOTINE 21 MG PATCH TOPICAL SCH (10:14)
--- NOTE | 2018-04-01 16:27 | General Surgery Progress Note ---
Subjective Patient reports: feels better, still having pain, pain is less, no flatus, no bowel movement, afebrile Narrative: Note initiated : 04/01/18 at 4:25 pm Service Date, if different from initiated Date: [] Patient: Se Mccoy 48 y/o M admitted on 03/29/18 for abdominal pain. Chief Complaint: [patient is stable and improved. He has moderate amount of pain but less than on yesterday. He does not have any shortness of breath or chest discomfort. His white blood count is 12 and hemoglobin is 11.8. In inpatient chemistry panel is normal. He is afebrile.] Objective Temp Pulse Resp BP Pulse Ox 98.3 F 97 H 16 127/79 94 04/01/18 16:00 04/01/18 16:00 04/01/18 16:00 04/01/18 16:00 04/01/18 16:00 - Additional Data Intake & Output - Last 24 hours: Intake & Output 03/30/18 03/31/18 04/01/18 04/02/18 05:59 05:59 05:59 05:59 Intake Total 2320 / 2320 5700 / 5700 3450 / 3450 1390 / 1390 Output Total 1550 / 1550 2325 / 2325 2225 / 2225 1700 / 1700 Balance 770 / 770 3375 / 3375 1225 / 1225 -310 / -310 Weight 178 lb 8 oz 180 lb 181 lb - General physical appearance well developed, well nourished, moderate distress, moderate pain - Eyes PERRL, normal ocular movement - ENT normal pinna, normal nares, normal mucosa, no hearing loss, no congestion - Neck no masses, no bruits, trachea midline, no lymphadenopathy, no venous distension - Respiratory normal expansion, normal respiratory effort, clear to auscultation - Cardiovascular Cardiovascular exam: Present: normal rate and rhythm, RRR, +S1, +S2. Absent: JVD, tachycardia - Abdomen tender (moderate tenderness to palpation; few active bowel sounds; incision and stoma look good) - Integumentary no rash, no growths, no abnormal pigmentation - Neurologic normal coordination, normal sensation - Psychiatric oriented to time, oriented to person, oriented to place, speech is normal, memory intact - Labs 04/01/18 04:06 04/01/18 04:06 Diabetes panel 04/01/18 Range/Units 04:06 Sodium 137 (133-145) mmol/L Potassium 3.8 (3.3-5.1) mmol/L Chloride 99 (96-108) mmol/L Carbon Dioxide 28 (22-30) mmol/L BUN 8 (6-20) mg/dl Creatinine 0.6 L (0.7-1.2) mg/dl Glucose 90 (70-105) mg/dL Calcium 8.5 L (8.6-10.4) mg/dl AST 12 (0-37) U/l ALT 11 (0-40) U/l Alkaline Phosphatase 48 (39-117) U/L Total Protein 5.5 L (5.9-8.4) gm/dL Albumin 2.9 L (3.2-5.2) gm/dL Triglycerides 100 (<150) mg/dl Calcium panel 04/01/18 Range/Units 04:06 Calcium 8.5 L (8.6-10.4) mg/dl Phosphorus 2.8 (2.7-4.5) mg/dL Albumin 2.9 L (3.2-5.2) gm/dL Pituitary panel 04/01/18 Range/Units 04:06 Sodium 137 (133-145) mmol/L Potassium 3.8 (3.3-5.1) mmol/L Chloride 99 (96-108) mmol/L Carbon Dioxide 28 (22-30) mmol/L BUN 8 (6-20) mg/dl Creatinine 0.6 L (0.7-1.2) mg/dl Glucose 90 (70-105) mg/dL Calcium 8.5 L (8.6-10.4) mg/dl Adrenal panel 04/01/18 Range/Units 04:06 Sodium 137 (133-145) mmol/L Potassium 3.8 (3.3-5.1) mmol/L Chloride 99 (96-108) mmol/L Carbon Dioxide 28 (22-30) mmol/L BUN 8 (6-20) mg/dl Creatinine 0.6 L (0.7-1.2) mg/dl Glucose 90 (70-105) mg/dL Calcium 8.5 L (8.6-10.4) mg/dl Total Bilirubin 0.4 (0.0-1.0) mg/dL AST 12 (0-37) U/l ALT 11 (0-40) U/l Alkaline Phosphatase 48 (39-117) U/L Total Protein 5.5 L (5.9-8.4) gm/dL Albumin 2.9 L (3.2-5.2) gm/dL Assessment and Plan (1) Diverticular disease of intestine with perforation and abscess Status: Acute Assessment and plan: Continue present therapy Give oral meds with sips of water Current Visit: Yes (2) Otitis media of left ear with rupture of tympanic membrane Status: Acute Assessment and plan: Continue home medications Current Visit: No (3) Depression Status: Chronic Assessment and plan: Continue home medications Current Visit: No (4) Neurogenic bladder Status: Chronic Assessment and plan: Continue urinary Hull catheter drainage Current Visit: No (5) Parkinson's disease Problem details: with profound fatigue and lethargy, requiring stimulants for control Status: Chronic Assessment and plan: Continue home medications Current Visit: No - Time Spent With Patient Total time spent is greater than 50% in coordination of care (as documented) at patient's floor/unit and/or counseling patient:
[2018-04-01] MEDS: LORazepam 2 MG/ML VIAL IV PRN (18:07)
[2018-04-01] MEDS: traZODone HCL 50 MG TABLET PO SCH (20:22)
[2018-04-02] MEDS: metroNIDAZOLE 500 MG/100 ML BAG IV SCH ×5 (00:04→23:55)
[2018-04-02] MEDS: METOCLOPRAMIDE 10 MG/2 ML VIAL IV SCH ×4 (00:04→17:15)
[2018-04-02] MEDS: HYDROmorphone 2 MG/ML VIAL IV PRN ×10 (00:05→22:50)
[2018-04-02] MEDS: 0.9 % SODIUM CHLORIDE 1,000 ML IV SCH ×3 (02:00→16:43)
[2018-04-02] MEDS: PIPERACILLIN SODIUM/TAZOBACTAM 3.375 GM in DEXTROSE 5% IN WATER 50 ML IV SCH ×4 (05:00→22:49)
[2018-04-02 06:46] LABS: Basophils # (Auto) 0.1 K/mcL (0.0-0.3); Basophils % (Auto) 0.6 % (0.0-2.0); Eosinophils # (Auto) 0.1 K/mcL (0.0-0.7); Eosinophils % (Auto) 1.3 % (0.0-7.0); Granulocytes % (Auto) 74.6 % (38.0-78.0); Lymphocytes # (Auto) 1.5 K/mcL (1.5-4.8); Lymphocytes % (Auto) 15.2 % (15.5-49.0); Mean Cell Volume 92.2 fL (80.0-100.0); Mean Corpuscular HGB Conc 34.2 g/dL (31.0-36.0); Mean Corpuscular Hemoglobin 31.5 pg (26.0-34.0); Monocytes # (Auto) 0.8 K/mcL (0.1-0.9); Monocytes % (Auto) 8.3 % (1.0-12.0); Platelet Count 408 K/mcL (140-440); RBC 3.75 M/mcL (4.50-5.90); Red Cell Distribution Width 12.9 % (11.5-14.5)
[2018-04-02 07:19] LABS: ALT/SGPT 11 U/l (0-40); Albumin 3.1 gm/dL (3.2-5.2); Albumin/Globulin Ratio 1.1 (1.0-2.3); Alkaline Phosphatase 47 U/L (39-117); Bilirubin,Direct < 0.2 mg/dL (0.0-0.3); Blood Urea Nitrogen 7 mg/dl (6-20); Gamma Glutamyl Transpeptidase 28 U/L (8-61)
[2018-04-02] MEDS: PANTOPRAZOLE 40 MG VIAL IV SCH ×2 (07:54→17:13)
[2018-04-02] MEDS: LEVODOPA PO SCH ×3 (09:57→20:53)
[2018-04-02] MEDS: OFLOXACIN BOTH EARS SCH ×2 (09:57→20:53)
[2018-04-02] MEDS: GABAPENTIN 300 MG CAPSULE PO SCH ×2 (09:57→20:53)
[2018-04-02] MEDS: CARBIDOPA PO SCH ×3 (09:57→20:53)
[2018-04-02] MEDS: ENTACAPONE 200 MG PO SCH ×3 (09:57→20:53)
[2018-04-02] MEDS: NICOTINE 21 MG PATCH TOPICAL SCH (09:58)
[2018-04-02] MEDS: VILAZODONE HCL 20 MG PO SCH (09:58)
[2018-04-02] MEDS: ONDANSETRON 4 MG/2 ML VIAL IV PRN (11:21)
--- NOTE | 2018-04-02 15:09 | General Surgery Progress Note ---
Subjective Patient reports: feels better, still having pain, pain is less, no flatus, no bowel movement, nausea, afebrile Narrative: Note initiated : 04/02/18 at 3:07 pm Service Date, if different from initiated Date: [] Patient: Se Mccoy 48 y/o M admitted on 03/29/18 for abdominal pain. Chief Complaint: [] Patient states that he feels better. He's had some mild nausea but his pain is improved. He denies chest pain or shortness of breath.. Urine output has been excellent. Afebrile. White blood count 9.9,, hemoglobin 11.8,, hematocrit 34.6,, creatinine 0.5. Objective Temp Pulse Resp BP Pulse Ox 98.3 F 87 14 130/78 98 04/02/18 12:00 04/02/18 12:00 04/02/18 12:00 04/02/18 12:00 04/02/18 12:00 - Additional Data Intake & Output - Last 24 hours: Intake & Output 03/31/18 04/01/18 04/02/18 04/03/18 05:59 05:59 05:59 05:59 Intake Total 5700 / 5700 3450 / 3450 3950 / 3950 150 / 150 Output Total 2325 / 2325 2225 / 2225 4223 / 4223 Balance 3375 / 3375 1225 / 1225 -273 / -273 150 / 150 Weight 180 lb 181 lb 182 lb - General physical appearance well developed, well nourished, no distress - Eyes PERRL, normal ocular movement - ENT normal pinna, normal nares, normal mucosa, no hearing loss, no congestion - Neck no masses, no bruits, trachea midline, no lymphadenopathy, no venous distension - Respiratory normal expansion, normal respiratory effort, clear to auscultation - Cardiovascular Cardiovascular exam: Present: normal rate and rhythm, RRR, +S1, +S2. Absent: JVD, tachycardia - Abdomen tender (moderate tenderness of incision in the peristomal area; good active bowel sounds; ELEAZAR drainage is serous), bowel sounds (present), surgical scars ( none), masses (none) - Integumentary no rash, no growths, no abnormal pigmentation - Neurologic normal coordination, normal sensation - Musculoskeletal normal gait, normal posture - Psychiatric oriented to time, oriented to person, oriented to place, speech is normal, memory intact - Labs 04/02/18 04:10 04/02/18 04:10 Diabetes panel 04/02/18 Range/Units 04:10 Sodium 137 (133-145) mmol/L Potassium 3.8 (3.3-5.1) mmol/L Chloride 98 (96-108) mmol/L Carbon Dioxide 25 (22-30) mmol/L BUN 7 (6-20) mg/dl Creatinine 0.5 L (0.7-1.2) mg/dl Glucose 80 (70-105) mg/dL Calcium 8.9 (8.6-10.4) mg/dl AST 12 (0-37) U/l ALT 11 (0-40) U/l Alkaline Phosphatase 47 (39-117) U/L Total Protein 5.9 (5.9-8.4) gm/dL Albumin 3.1 L (3.2-5.2) gm/dL Triglycerides 101 (<150) mg/dl Calcium panel 04/02/18 Range/Units 04:10 Calcium 8.9 (8.6-10.4) mg/dl Phosphorus 2.9 (2.7-4.5) mg/dL Albumin 3.1 L (3.2-5.2) gm/dL Pituitary panel 04/02/18 Range/Units 04:10 Sodium 137 (133-145) mmol/L Potassium 3.8 (3.3-5.1) mmol/L Chloride 98 (96-108) mmol/L Carbon Dioxide 25 (22-30) mmol/L BUN 7 (6-20) mg/dl Creatinine 0.5 L (0.7-1.2) mg/dl Glucose 80 (70-105) mg/dL Calcium 8.9 (8.6-10.4) mg/dl Adrenal panel 04/02/18 Range/Units 04:10 Sodium 137 (133-145) mmol/L Potassium 3.8 (3.3-5.1) mmol/L Chloride 98 (96-108) mmol/L Carbon Dioxide 25 (22-30) mmol/L BUN 7 (6-20) mg/dl Creatinine 0.5 L (0.7-1.2) mg/dl Glucose 80 (70-105) mg/dL Calcium 8.9 (8.6-10.4) mg/dl Total Bilirubin 0.4 (0.0-1.0) mg/dL AST 12 (0-37) U/l ALT 11 (0-40) U/l Alkaline Phosphatase 47 (39-117) U/L Total Protein 5.9 (5.9-8.4) gm/dL Albumin 3.1 L (3.2-5.2) gm/dL Assessment and Plan (1) Diverticular disease of intestine with perforation and abscess Status: Acute Assessment and plan: Continue present therapy Give oral meds with sips of water Current Visit: Yes (2) Otitis media of left ear with rupture of tympanic membrane Status: Acute Assessment and plan: Continue home medications Current Visit: No (3) Depression Status: Chronic Assessment and plan: Continue home medications Current Visit: No (4) Neurogenic bladder Status: Chronic Assessment and plan: Continue urinary Hull catheter drainage Current Visit: No (5) Parkinson's disease Problem details: with profound fatigue and lethargy, requiring stimulants for control Status: Chronic Assessment and plan: Continue home medications Current Visit: No - Time Spent With Patient Total time spent is greater than 50% in coordination of care (as documented) at patient's floor/unit and/or counseling patient:
[2018-04-02] MEDS: LORazepam 2 MG/ML VIAL IV PRN (17:27)
[2018-04-02] MEDS: traZODone HCL 50 MG TABLET PO SCH (20:53)
[2018-04-03] MEDS: METOCLOPRAMIDE 10 MG/2 ML VIAL IV SCH ×5 (01:25→23:46)
[2018-04-03] MEDS: HYDROmorphone 2 MG/ML VIAL IV PRN ×8 (01:28→23:05)
[2018-04-03] MEDS: 0.9 % SODIUM CHLORIDE 1,000 ML IV SCH ×3 (02:30→09:56)
[2018-04-03] MEDS: PIPERACILLIN SODIUM/TAZOBACTAM 3.375 GM in DEXTROSE 5% IN WATER 50 ML IV SCH ×4 (04:44→23:46)
[2018-04-03] MEDS: metroNIDAZOLE 500 MG/100 ML BAG IV SCH ×3 (05:24→17:45)
[2018-04-03 06:52] LABS: Basophils # (Auto) 0.1 K/mcL (0.0-0.3); Basophils % (Auto) 0.7 % (0.0-2.0); Eosinophils # (Auto) 0.3 K/mcL (0.0-0.7); Eosinophils % (Auto) 3.4 % (0.0-7.0); Granulocytes % (Auto) 64.6 % (38.0-78.0); Lymphocytes # (Auto) 1.8 K/mcL (1.5-4.8); Lymphocytes % (Auto) 22.6 % (15.5-49.0); Mean Cell Volume 91.6 fL (80.0-100.0); Mean Corpuscular HGB Conc 34.1 g/dL (31.0-36.0); Mean Corpuscular Hemoglobin 31.2 pg (26.0-34.0); Monocytes # (Auto) 0.7 K/mcL (0.1-0.9); Monocytes % (Auto) 8.7 % (1.0-12.0); Platelet Count 426 K/mcL (140-440); RBC 3.81 M/mcL (4.50-5.90); Red Cell Distribution Width 12.9 % (11.5-14.5)
[2018-04-03 07:21] LABS: ALT/SGPT 19 U/l (0-40); Alkaline Phosphatase 56 U/L (39-117); Bilirubin,Direct < 0.2 mg/dL (0.0-0.3); Blood Urea Nitrogen 7 mg/dl (6-20); Gamma Glutamyl Transpeptidase 45 U/L (8-61); Uric Acid 3.3 mg/dL (2.5-8.0)
[2018-04-03] MEDS: ENTACAPONE 200 MG PO SCH ×3 (09:39→20:59)
[2018-04-03] MEDS: LEVODOPA PO SCH ×3 (09:39→20:59)
[2018-04-03] MEDS: CARBIDOPA PO SCH ×3 (09:39→20:59)
[2018-04-03] MEDS: GABAPENTIN 300 MG CAPSULE PO SCH ×2 (09:39→20:58)
[2018-04-03] MEDS: VILAZODONE HCL 20 MG PO SCH (09:40)
[2018-04-03] MEDS: NICOTINE 21 MG PATCH TOPICAL SCH (09:40)
[2018-04-03] MEDS: OFLOXACIN BOTH EARS SCH ×2 (09:40→20:59)
[2018-04-03] MEDS: PANTOPRAZOLE 40 MG VIAL IV SCH ×2 (09:49→17:19)
[2018-04-03] MEDS: ONDANSETRON 4 MG/2 ML VIAL IV PRN ×2 (09:50→15:34)
--- NOTE | 2018-04-03 13:54 | Surgical Pathology Report ---
HISTOLOGY SPECIMEN MICROSCOPIC DIAGNOSIS COLON, PARTIAL COLECTOMY: -- ACUTE DIVERTICULITIS WITH ABSCESS, PERFORATION AND SEROSITIS WITH ACUTE INFLAMMATION, POORLY FORMED GRANULOMAS AND FOREIGN BODY GIANT CELL RESPONSE. -- THREE BENIGN LYMPH NODES. -- VIABLE MARGINS OF RESECTION. -- NO MALIGNANCY IDENTIFIED. (RLF:adj) MICROSCOPIC DESCRIPTION Immunohistochemical studies are performed (block A4). Pancytokeratin plus: No infiltrative lesion identified. CD68: Highlights numerous inflammatory cells. Interpretation: No malignancy identified. Some of the tests reported here may not have been cleared or approved by the [place] Food and Drug Administration (FDA). However, the FDA has determined that such clearance or approval is not necessary. Pursuant to the requirements of CLIA, this laboratory has established and verified the accuracy and precision of all tests, and additional information about these tests is available upon request. All technical controls are adequate. CLINICAL HISTORY Diverticular disease of intestine with perforation and abscess. GROSS DESCRIPTION Received in formalin labeled with the patient information, is a segment of whyte bowel with attached whyte fat. The segment is received with both margins stapled. The specimen measures 20.2 cm in length and 2.8 cm in diameter. The serosa is whyte. Centrally there is a 6 cm area of possible adhesion noted on the fat and serosa. Near one margin there is fraser-whyte exudate. This margin is inked black. The wall is 0.5 cm thick. The mucosa is whyte and plicated. There are areas of possible diverticula identified, some extending to the previously mentioned area of possible adhesion and fraser-whyte exudate. There are three candidate lymph nodes identified from 0.[address] sections submitted in seven cassettes: A1 - margins; A2-A4 - areas of diverticula extending to whyte exudate; A5 - exudate on serosal surface near inked margin; A6 - random sections; A7 - candidate lymph nodes. (SCB:sln) Electronically Signed by: Landy Piper M.D.
--- NOTE | 2018-04-03 15:04 | General Surgery Progress Note ---
Subjective Patient reports: feels better, still having pain, pain is less, flatus, afebrile Narrative: Note initiated : 04/03/18 at 3:03 pm Service Date, if different from initiated Date: [] Patient: Se Mccoy 48 y/o M admitted on 03/29/18 for abdominal pain. Chief Complaint: [Patient continues to improve. He had some nausea earlier today but feels fine now. He has a small amount of gas in his stoma appliance. White blood count 7.8; hemoglobin 11.9; inpatient panel was normal.] Objective Temp Pulse Resp BP Pulse Ox 98.3 F 82 12 130/77 94 04/03/18 12:00 04/03/18 12:00 04/03/18 12:00 04/03/18 12:00 04/03/18 12:00 - Additional Data Intake & Output - Last 24 hours: Intake & Output 04/01/18 04/02/18 04/03/18 04/04/18 05:59 05:59 05:59 05:59 Intake Total 3450 / 3450 3950 / 3950 2660 / 2660 1250 / 1250 Output Total 2225 / 2225 4223 / 4223 4440 / 4440 Balance 1225 / 1225 -273 / -273 -1780 / -1780 1250 / 1250 Weight 181 lb 182 lb 179 lb 8 oz - General physical appearance well developed, well nourished, no distress - Eyes PERRL, normal ocular movement - ENT normal pinna, normal nares, normal mucosa, no hearing loss, no congestion - Neck no masses, no bruits, trachea midline, no lymphadenopathy, no venous distension - Respiratory normal expansion, normal respiratory effort, clear to auscultation - Cardiovascular Cardiovascular exam: Present: normal rate and rhythm, RRR, +S1, +S2. Absent: JVD, tachycardia - Abdomen tender (mild incisional tenderness and tenderness around stoma; stoma looks good ; active bowel sounds) - Integumentary no rash, no growths, no abnormal pigmentation - Psychiatric oriented to time, oriented to person, oriented to place, speech is normal, memory intact - Labs 04/03/18 04:10 04/03/18 04:10 Diabetes panel 04/03/18 Range/Units 04:10 Sodium 138 (133-145) mmol/L Potassium 3.7 (3.3-5.1) mmol/L Chloride 99 (96-108) mmol/L Carbon Dioxide 26 (22-30) mmol/L BUN 7 (6-20) mg/dl Creatinine 0.6 L (0.7-1.2) mg/dl Glucose 73 (70-105) mg/dL Calcium 8.9 (8.6-10.4) mg/dl AST 29 (0-37) U/l ALT 19 (0-40) U/l Alkaline Phosphatase 56 (39-117) U/L Total Protein 5.9 (5.9-8.4) gm/dL Albumin 3.0 L (3.2-5.2) gm/dL Triglycerides 103 (<150) mg/dl Calcium panel 04/03/18 Range/Units 04:10 Calcium 8.9 (8.6-10.4) mg/dl Phosphorus 2.7 (2.7-4.5) mg/dL Albumin 3.0 L (3.2-5.2) gm/dL Pituitary panel 04/03/18 Range/Units 04:10 Sodium 138 (133-145) mmol/L Potassium 3.7 (3.3-5.1) mmol/L Chloride 99 (96-108) mmol/L Carbon Dioxide 26 (22-30) mmol/L BUN 7 (6-20) mg/dl Creatinine 0.6 L (0.7-1.2) mg/dl Glucose 73 (70-105) mg/dL Calcium 8.9 (8.6-10.4) mg/dl Adrenal panel 04/03/18 Range/Units 04:10 Sodium 138 (133-145) mmol/L Potassium 3.7 (3.3-5.1) mmol/L Chloride 99 (96-108) mmol/L Carbon Dioxide 26 (22-30) mmol/L BUN 7 (6-20) mg/dl Creatinine 0.6 L (0.7-1.2) mg/dl Glucose 73 (70-105) mg/dL Calcium 8.9 (8.6-10.4) mg/dl Total Bilirubin 0.4 (0.0-1.0) mg/dL AST 29 (0-37) U/l ALT 19 (0-40) U/l Alkaline Phosphatase 56 (39-117) U/L Total Protein 5.9 (5.9-8.4) gm/dL Albumin 3.0 L (3.2-5.2) gm/dL Assessment and Plan (1) Diverticular disease of intestine with perforation and abscess Status: Acute Assessment and plan: Continue present therapy Discontinue nasogastric tube Discontinue Hull catheter May start on [place] prune juice Will advance diet once he has movement through his colostomy Current Visit: Yes (2) Otitis media of left ear with rupture of tympanic membrane Status: Acute Assessment and plan: Continue home medications Current Visit: No (3) Depression Status: Chronic Assessment and plan: Continue home medications Current Visit: No (4) Neurogenic bladder Status: Chronic Assessment and plan: Continue urinary Hull catheter drainage Current Visit: No (5) Parkinson's disease Problem details: with profound fatigue and lethargy, requiring stimulants for control Status: Chronic Assessment and plan: Continue home medications Current Visit: No - Time Spent With Patient Total time spent is greater than 50% in coordination of care (as documented) at patient's floor/unit and/or counseling patient:
[2018-04-03] MEDS: BACLOFEN 10 MG TABLET PO PRN (20:58)
[2018-04-03] MEDS: traZODone HCL 50 MG TABLET PO SCH (20:59)
[2018-04-04] MEDS: metroNIDAZOLE 500 MG/100 ML BAG IV SCH ×5 (00:31→23:28)
[2018-04-04] MEDS: 0.9 % SODIUM CHLORIDE 1,000 ML IV SCH ×2 (03:46→18:01)
[2018-04-04] MEDS: METOCLOPRAMIDE 10 MG/2 ML VIAL IV SCH ×4 (05:09→23:28)
[2018-04-04] MEDS: PIPERACILLIN SODIUM/TAZOBACTAM 3.375 GM in DEXTROSE 5% IN WATER 50 ML IV SCH ×4 (05:09→22:49)
[2018-04-04] MEDS: HYDROmorphone 2 MG/ML VIAL IV PRN ×4 (05:15→21:47)
[2018-04-04 06:25] LABS: Basophils # (Auto) 0.1 K/mcL (0.0-0.3); Basophils % (Auto) 0.6 % (0.0-2.0); Eosinophils # (Auto) 0.4 K/mcL (0.0-0.7); Eosinophils % (Auto) 4.2 % (0.0-7.0); Granulocytes % (Auto) 68.3 % (38.0-78.0); Lymphocytes # (Auto) 1.9 K/mcL (1.5-4.8); Lymphocytes % (Auto) 19.1 % (15.5-49.0); Mean Cell Volume 91.2 fL (80.0-100.0); Mean Corpuscular HGB Conc 34.3 g/dL (31.0-36.0); Mean Corpuscular Hemoglobin 31.3 pg (26.0-34.0); Monocytes # (Auto) 0.8 K/mcL (0.1-0.9); Monocytes % (Auto) 7.8 % (1.0-12.0); Platelet Count 439 K/mcL (140-440); RBC 3.88 M/mcL (4.50-5.90); Red Cell Distribution Width 13.3 % (11.5-14.5)
[2018-04-04 07:00] LABS: ALT/SGPT < 5 U/l (0-40); Albumin 3.3 gm/dL (3.2-5.2); Albumin/Globulin Ratio 1.1 (1.0-2.3); Alkaline Phosphatase 60 U/L (39-117); Bilirubin,Direct < 0.2 mg/dL (0.0-0.3); Blood Urea Nitrogen 7 mg/dl (6-20); Gamma Glutamyl Transpeptidase 54 U/L (8-61); Uric Acid 3.2 mg/dL (2.5-8.0)
[2018-04-04] MEDS: PANTOPRAZOLE 40 MG VIAL IV SCH ×2 (07:48→16:44)
[2018-04-04] MEDS: GABAPENTIN 300 MG CAPSULE PO SCH ×2 (08:41→21:47)
[2018-04-04] MEDS: ENTACAPONE 200 MG PO SCH ×3 (08:42→21:46)
[2018-04-04] MEDS: CARBIDOPA PO SCH ×3 (08:42→21:46)
[2018-04-04] MEDS: LEVODOPA PO SCH ×3 (08:42→21:46)
[2018-04-04] MEDS: VILAZODONE HCL 20 MG PO SCH (08:44)
[2018-04-04] MEDS: OFLOXACIN BOTH EARS SCH ×2 (08:45→21:49)
[2018-04-04] MEDS: NICOTINE 21 MG PATCH TOPICAL SCH (08:48)
[2018-04-04] MEDS: LORazepam 2 MG/ML VIAL IV PRN (09:45)
[2018-04-04] MEDS: BACLOFEN 10 MG TABLET PO PRN ×2 (15:19→21:47)
--- NOTE | 2018-04-04 17:44 | General Surgery Progress Note ---
Subjective Patient reports: feels better, still having pain, pain is less, flatus, no bowel movement, afebrile Narrative: Note initiated : 04/04/18 at 5:42 pm Service Date, if different from initiated Date: [] Patient: Se Mccoy 48 y/o M admitted on 03/29/18 for abdominal pain. Chief Complaint: [patient states that he feels better he's had a small amount of flatus but no bowel movements . He denies chest pain or shortness of breath. ] Objective Temp Pulse Resp BP Pulse Ox 97.9 F 80 20 135/81 95 04/04/18 16:00 04/04/18 07:25 04/04/18 16:00 04/04/18 16:00 04/04/18 16:00 - Additional Data Intake & Output - Last 24 hours: Intake & Output 04/02/18 04/03/18 04/04/18 04/05/18 05:59 05:59 05:59 05:59 Intake Total 3950 / 3950 2660 / 2660 2690 / 2690 300 / 300 Output Total 4223 / 4223 4440 / 4440 2405 / 2405 1300 / 1300 Balance -273 / -273 -1780 / -1780 285 / 285 -1000 / -1000 Weight 182 lb 179 lb 8 oz 167 lb 3.2 oz - General physical appearance well developed, well nourished, no distress - Eyes PERRL, normal ocular movement - ENT normal pinna, normal nares, normal mucosa, no hearing loss, no congestion - Neck no masses, no bruits, trachea midline, no lymphadenopathy, no venous distension - Respiratory normal expansion, normal respiratory effort, clear to auscultation - Cardiovascular Cardiovascular exam: Present: normal rate and rhythm, RRR, +S1, +S2. Absent: JVD, tachycardia - Abdomen tender (moderate incisional tenderness otherwise benign abdomen; stoma is healthy), bowel sounds (present), surgical scars (none), masses (none) - Integumentary no rash, no growths, no abnormal pigmentation - Neurologic normal coordination, normal sensation - Musculoskeletal normal gait, normal posture - Psychiatric oriented to time, oriented to person, oriented to place, speech is normal, memory intact - Labs 04/04/18 04:40 04/04/18 04:40 Diabetes panel 04/04/18 Range/Units 04:40 Sodium 137 (133-145) mmol/L Potassium 3.6 (3.3-5.1) mmol/L Chloride 99 (96-108) mmol/L Carbon Dioxide 25 (22-30) mmol/L BUN 7 (6-20) mg/dl Creatinine 0.5 L (0.7-1.2) mg/dl Glucose 91 (70-105) mg/dL Calcium 9.0 (8.6-10.4) mg/dl AST 20 (0-37) U/l ALT < 5 (0-40) U/l Alkaline Phosphatase 60 (39-117) U/L Total Protein 6.2 (5.9-8.4) gm/dL Albumin 3.3 (3.2-5.2) gm/dL Triglycerides 113 (<150) mg/dl Calcium panel 04/04/18 Range/Units 04:40 Calcium 9.0 (8.6-10.4) mg/dl Phosphorus 3.0 (2.7-4.5) mg/dL Albumin 3.3 (3.2-5.2) gm/dL Pituitary panel 04/04/18 Range/Units 04:40 Sodium 137 (133-145) mmol/L Potassium 3.6 (3.3-5.1) mmol/L Chloride 99 (96-108) mmol/L Carbon Dioxide 25 (22-30) mmol/L BUN 7 (6-20) mg/dl Creatinine 0.5 L (0.7-1.2) mg/dl Glucose 91 (70-105) mg/dL Calcium 9.0 (8.6-10.4) mg/dl Adrenal panel 04/04/18 Range/Units 04:40 Sodium 137 (133-145) mmol/L Potassium 3.6 (3.3-5.1) mmol/L Chloride 99 (96-108) mmol/L Carbon Dioxide 25 (22-30) mmol/L BUN 7 (6-20) mg/dl Creatinine 0.5 L (0.7-1.2) mg/dl Glucose 91 (70-105) mg/dL Calcium 9.0 (8.6-10.4) mg/dl Total Bilirubin 0.5 (0.0-1.0) mg/dL AST 20 (0-37) U/l ALT < 5 (0-40) U/l Alkaline Phosphatase 60 (39-117) U/L Total Protein 6.2 (5.9-8.4) gm/dL Albumin 3.3 (3.2-5.2) gm/dL Assessment and Plan (1) Diverticular disease of intestine with perforation and abscess Status: Acute Assessment and plan: Continue present therapy Will advance diet once he has movement through his colostomy Current Visit: Yes (2) Otitis media of left ear with rupture of tympanic membrane Status: Acute Assessment and plan: Continue home medications Current Visit: No (3) Depression Status: Chronic Assessment and plan: Continue home medications Current Visit: No (4) Neurogenic bladder Status: Chronic Assessment and plan: Continue urinary Hull catheter drainage Current Visit: No (5) Parkinson's disease Problem details: with profound fatigue and lethargy, requiring stimulants for control Status: Chronic Assessment and plan: Continue home medications Current Visit: No - Time Spent With Patient Total time spent is greater than 50% in coordination of care (as documented) at patient's floor/unit and/or counseling patient:
[2018-04-04] MEDS: traZODone HCL 50 MG TABLET PO SCH (21:50)
[2018-04-05] MEDS: HYDROmorphone 2 MG/ML VIAL IV PRN ×5 (03:09→21:32)
[2018-04-05] MEDS: 0.9 % SODIUM CHLORIDE 1,000 ML IV SCH ×3 (04:27→14:07)
[2018-04-05] MEDS: PIPERACILLIN SODIUM/TAZOBACTAM 3.375 GM in DEXTROSE 5% IN WATER 50 ML IV SCH ×4 (05:15→22:48)
[2018-04-05] MEDS: METOCLOPRAMIDE 10 MG/2 ML VIAL IV SCH ×4 (05:21→23:29)
[2018-04-05] MEDS: metroNIDAZOLE 500 MG/100 ML BAG IV SCH ×4 (05:51→23:30)
[2018-04-05 06:33] LABS: ALT/SGPT < 5 U/l (0-40); Albumin 3.4 gm/dL (3.2-5.2); Albumin/Globulin Ratio 1.3 (1.0-2.3); Alkaline Phosphatase 53 U/L (39-117); Bilirubin,Direct < 0.2 mg/dL (0.0-0.3); Blood Urea Nitrogen 5 mg/dl (6-20); Gamma Glutamyl Transpeptidase 48 U/L (8-61); Uric Acid 3.1 mg/dL (2.5-8.0)
[2018-04-05] MEDS: PANTOPRAZOLE 40 MG VIAL IV SCH ×2 (07:59→16:33)
[2018-04-05] MEDS: GABAPENTIN 300 MG CAPSULE PO SCH ×2 (08:49→22:52)
[2018-04-05] MEDS: BACLOFEN 10 MG TABLET PO PRN ×3 (08:49→22:51)
[2018-04-05] MEDS: CARBIDOPA PO SCH ×3 (08:50→22:53)
[2018-04-05] MEDS: ENTACAPONE 200 MG PO SCH ×3 (08:50→22:53)
[2018-04-05] MEDS: LEVODOPA PO SCH ×3 (08:50→22:53)
[2018-04-05] MEDS: VILAZODONE HCL 20 MG PO SCH (08:50)
[2018-04-05] MEDS: OFLOXACIN BOTH EARS SCH ×2 (08:52→22:52)
[2018-04-05] MEDS ORDERED: ARMODAFINIL 200 MG PO SCH (09:00)
[2018-04-05] MEDS: NICOTINE 21 MG PATCH TOPICAL SCH (09:40)
--- NOTE | 2018-04-05 15:57 | General Surgery Progress Note ---
Subjective Patient reports: feels better, pain is less, tolerating liquids well, flatus, bowel movement, afebrile Narrative: Note initiated : 04/05/18 at 3:55 pm Service Date, if different from initiated Date: [] Patient: Se Mccoy 48 y/o M admitted on 03/29/18 for abdominal pain. Chief Complaint: [patient is going well. Is tolerating liquids without difficulty and his stoma has increased output. His abdominal pain is significantly improved.] Objective Temp Pulse Resp BP Pulse Ox 98.7 F 73 20 142/90 94 04/05/18 11:26 04/05/18 03:10 04/05/18 11:26 04/05/18 11:26 04/05/18 11:26 - Additional Data Intake & Output - Last 24 hours: Intake & Output 04/03/18 04/04/18 04/05/18 04/06/18 05:59 05:59 05:59 05:59 Intake Total 2660 / 2660 2690 / 2690 2320 / 2320 1730 / 1730 Output Total 4440 / 4440 2405 / 2405 2540 / 2540 1930 / 1930 Balance -1780 / -1780 285 / 285 -220 / -220 -200 / -200 Weight 179 lb 8 oz 167 lb 3.2 oz 167 lb 8 oz 167 lb 8 oz - General physical appearance well developed, well nourished, no distress - Eyes PERRL, normal ocular movement - ENT normal pinna, normal nares, normal mucosa, no hearing loss, no congestion - Neck no masses, no bruits, trachea midline, no lymphadenopathy, no venous distension - Respiratory normal expansion, normal respiratory effort, clear to auscultation - Cardiovascular Cardiovascular exam: Present: normal rate and rhythm, +S1, +S2. Absent: JVD, RRR, tachycardia - Abdomen tender (abdominal tenderness is minimal; good active bowel sounds; stoma is healthy.), bowel sounds (present), surgical scars (none), masses (none) - Rectum normal sphincter tone, no hemorrhoids, no tenderness, no masses, no bleeding - Integumentary no rash, no growths, no abnormal pigmentation - Neurologic normal sensation - Musculoskeletal normal gait, normal posture - Psychiatric oriented to time, oriented to person, oriented to place, speech is normal, memory intact - Labs 04/04/18 04:40 04/05/18 04:23 Diabetes panel 04/05/18 Range/Units 04:23 Sodium 140 (133-145) mmol/L Potassium 3.4 (3.3-5.1) mmol/L Chloride 103 (96-108) mmol/L Carbon Dioxide 25 (22-30) mmol/L BUN 5 L (6-20) mg/dl Creatinine 0.6 L (0.7-1.2) mg/dl Glucose 105 (70-105) mg/dL Calcium 9.1 (8.6-10.4) mg/dl AST 17 (0-37) U/l ALT < 5 (0-40) U/l Alkaline Phosphatase 53 (39-117) U/L Total Protein 6.0 (5.9-8.4) gm/dL Albumin 3.4 (3.2-5.2) gm/dL Triglycerides 112 (<150) mg/dl Calcium panel 04/05/18 Range/Units 04:23 Calcium 9.1 (8.6-10.4) mg/dl Phosphorus 3.3 (2.7-4.5) mg/dL Albumin 3.4 (3.2-5.2) gm/dL Pituitary panel 04/05/18 Range/Units 04:23 Sodium 140 (133-145) mmol/L Potassium 3.4 (3.3-5.1) mmol/L Chloride 103 (96-108) mmol/L Carbon Dioxide 25 (22-30) mmol/L BUN 5 L (6-20) mg/dl Creatinine 0.6 L (0.7-1.2) mg/dl Glucose 105 (70-105) mg/dL Calcium 9.1 (8.6-10.4) mg/dl Adrenal panel 04/05/18 Range/Units 04:23 Sodium 140 (133-145) mmol/L Potassium 3.4 (3.3-5.1) mmol/L Chloride 103 (96-108) mmol/L Carbon Dioxide 25 (22-30) mmol/L BUN 5 L (6-20) mg/dl Creatinine 0.6 L (0.7-1.2) mg/dl Glucose 105 (70-105) mg/dL Calcium 9.1 (8.6-10.4) mg/dl Total Bilirubin 0.3 (0.0-1.0) mg/dL AST 17 (0-37) U/l ALT < 5 (0-40) U/l Alkaline Phosphatase 53 (39-117) U/L Total Protein 6.0 (5.9-8.4) gm/dL Albumin 3.4 (3.2-5.2) gm/dL Assessment and Plan (1) Diverticular disease of intestine with perforation and abscess Status: Acute Assessment and plan: Continue present therapy Full liquid diet Current Visit: Yes (2) Otitis media of left ear with rupture of tympanic membrane Status: Acute Assessment and plan: Continue home medications Current Visit: No (3) Depression Status: Chronic Assessment and plan: Continue home medications Current Visit: No (4) Neurogenic bladder Status: Chronic Assessment and plan: Continue urinary Hull catheter drainage Current Visit: No (5) Parkinson's disease Problem details: with profound fatigue and lethargy, requiring stimulants for control Status: Chronic Assessment and plan: Continue home medications Current Visit: No - Time Spent With Patient Total time spent is greater than 50% in coordination of care (as documented) at patient's floor/unit and/or counseling patient:
[2018-04-05] MEDS: ONDANSETRON 4 MG/2 ML VIAL IV PRN (22:46)
[2018-04-05] MEDS: traZODone HCL 50 MG TABLET PO SCH (22:52)
[2018-04-06] MEDS: HYDROmorphone 2 MG/ML VIAL IV PRN ×5 (03:34→19:26)
[2018-04-06] MEDS: 0.9 % SODIUM CHLORIDE 1,000 ML IV SCH ×3 (03:34→22:39)
[2018-04-06] MEDS: PIPERACILLIN SODIUM/TAZOBACTAM 3.375 GM in DEXTROSE 5% IN WATER 50 ML IV SCH ×4 (04:54→23:03)
[2018-04-06] MEDS: METOCLOPRAMIDE 10 MG/2 ML VIAL IV SCH ×4 (05:54→23:00)
[2018-04-06] MEDS: metroNIDAZOLE 500 MG/100 ML BAG IV SCH ×3 (05:54→17:43)
[2018-04-06] MEDS: ARMODAFINIL 200 MG PO SCH (08:03)
[2018-04-06] MEDS: LEVODOPA PO SCH ×3 (08:04→23:00)
[2018-04-06] MEDS: VILAZODONE HCL 20 MG PO SCH (08:04)
[2018-04-06] MEDS: CARBIDOPA PO SCH ×3 (08:04→23:00)
[2018-04-06] MEDS: ENTACAPONE 200 MG PO SCH ×3 (08:04→23:00)
[2018-04-06] MEDS: GABAPENTIN 300 MG CAPSULE PO SCH ×2 (08:05→23:00)
[2018-04-06] MEDS: PANTOPRAZOLE 40 MG VIAL IV SCH ×2 (08:05→16:27)
[2018-04-06] MEDS: OFLOXACIN BOTH EARS SCH ×2 (08:05→22:34)
[2018-04-06] MEDS: NICOTINE 21 MG PATCH TOPICAL SCH (09:27)
[2018-04-06] MEDS: ONDANSETRON 4 MG/2 ML VIAL IV PRN (13:13)
[2018-04-06] MEDS: BACLOFEN 10 MG TABLET PO PRN (15:04)
--- NOTE | 2018-04-06 15:32 | General Surgery Progress Note ---
Subjective Patient reports: feels better, pain is less, tolerating liquids well, flatus, bowel movement, diarrhea, afebrile Narrative: Note initiated : 04/06/18 at 3:29 pm Service Date, if different from initiated Date: [] Patient: Se Mccoy 48 y/o M admitted on 03/29/18 for abdominal pain. Chief Complaint: [patient is doing well.. Is tolerating liquids without difficulty. hIS STOMA IS FUNCTIONING NICELY. He denies nausea vomiting. White blood count 10; hemoglobin 12.1; hematocrit 35.4; BUN 5 creatinine 0.6.] Objective Temp Pulse Resp BP Pulse Ox 98.7 F 73 20 136/79 96 04/06/18 15:23 04/06/18 03:50 04/06/18 15:23 04/06/18 15:23 04/06/18 15:23 - Additional Data Intake & Output - Last 24 hours: Intake & Output 04/04/18 04/05/18 04/06/18 04/07/18 05:59 05:59 05:59 05:59 Intake Total 2690 / 2690 2320 / 2320 4350 / 4350 2009 Output Total 2405 / 2405 2540 / 2540 3145 / 3145 1650 / 1650 Balance 285 / 285 -220 / -220 1205 / 1205 360 / 360 Weight 167 lb 3.2 oz 167 lb 8 oz 168 lb 8 oz - General physical appearance well developed, well nourished, no distress - Eyes PERRL, normal ocular movement - ENT normal pinna, normal nares, normal mucosa, no hearing loss, no congestion - Neck no masses, no bruits, trachea midline, no lymphadenopathy, no venous distension - Respiratory normal expansion, normal respiratory effort, clear to auscultation - Cardiovascular Cardiovascular exam: Present: normal rate and rhythm, RRR, +S1, +S2. Absent: JVD, tachycardia - Abdomen tender (mild incisional tenderness; good active bowel sounds; stoma looks good) - Integumentary no rash, no growths, no abnormal pigmentation - Neurologic normal coordination, normal sensation - Psychiatric oriented to time, oriented to person, oriented to place, speech is normal, memory intact - Labs 04/04/18 04:40 04/05/18 04:23 Assessment and Plan (1) Diverticular disease of intestine with perforation and abscess Status: Acute Assessment and plan: Continue present therapy Advanced to soft diet Current Visit: Yes (2) Otitis media of left ear with rupture of tympanic membrane Status: Acute Assessment and plan: Continue home medications Current Visit: No (3) Depression Status: Chronic Assessment and plan: Continue home medications Current Visit: No (4) Neurogenic bladder Status: Chronic Assessment and plan: Continue urinary Hull catheter drainage Current Visit: No (5) Parkinson's disease Problem details: with profound fatigue and lethargy, requiring stimulants for control Status: Chronic Assessment and plan: Continue home medications Current Visit: No - Time Spent With Patient Total time spent is greater than 50% in coordination of care (as documented) at patient's floor/unit and/or counseling patient:
[2018-04-07] MEDS: metroNIDAZOLE 500 MG/100 ML BAG IV SCH ×4 (00:05→17:51)
[2018-04-07] MEDS: traZODone HCL 50 MG TABLET PO SCH ×2 (02:25→22:47)
[2018-04-07] MEDS: PIPERACILLIN SODIUM/TAZOBACTAM 3.375 GM in DEXTROSE 5% IN WATER 50 ML IV SCH ×4 (04:55→22:50)
[2018-04-07] MEDS: METOCLOPRAMIDE 10 MG/2 ML VIAL IV SCH ×3 (06:27→17:51)
[2018-04-07] MEDS: HYDROmorphone 2 MG/ML VIAL IV PRN ×3 (06:34→20:38)
[2018-04-07] MEDS: 0.9 % SODIUM CHLORIDE 1,000 ML IV SCH ×2 (06:37→16:43)
[2018-04-07] MEDS: LEVODOPA PO SCH ×3 (08:01→22:44)
[2018-04-07] MEDS: ENTACAPONE 200 MG PO SCH ×3 (08:01→22:44)
[2018-04-07] MEDS: CARBIDOPA PO SCH ×3 (08:01→22:44)
[2018-04-07] MEDS: VILAZODONE HCL 20 MG PO SCH (08:01)
[2018-04-07] MEDS: GABAPENTIN 300 MG CAPSULE PO SCH ×2 (08:02→22:43)
[2018-04-07] MEDS: BACLOFEN 10 MG TABLET PO PRN ×3 (08:02→22:42)
[2018-04-07] MEDS: OFLOXACIN BOTH EARS SCH ×2 (08:03→22:46)
[2018-04-07] MEDS: ARMODAFINIL 200 MG PO SCH (08:04)
[2018-04-07] MEDS: PANTOPRAZOLE 40 MG VIAL IV SCH ×2 (08:12→16:33)
[2018-04-07] MEDS: NICOTINE 21 MG PATCH TOPICAL SCH (08:12)
--- NOTE | 2018-04-07 16:15 | General Surgery Progress Note ---
Subjective Patient reports: feels better, pain is less, tolerating a regular diet, flatus, bowel movement, diarrhea, afebrile Narrative: Note initiated : 04/07/18 at 4:13 pm Service Date, if different from initiated Date: [] Patient: Se Mccoy 48 y/o M admitted on 03/29/18 for abdominal pain. Chief Complaint: [patient is well.. He is in a much better frame of mind.. He is more interactive and is beginning to care for his stoma.. White blood count 10;; hemoglobin 12.1, hematocrit 35.4] Objective Temp Pulse Resp BP Pulse Ox 98.5 F 88 20 124/87 97 04/07/18 16:00 04/07/18 08:00 04/07/18 16:00 04/07/18 16:00 04/07/18 16:00 - Additional Data Intake & Output - Last 24 hours: Intake & Output 04/05/18 04/06/18 04/07/18 04/08/18 05:59 05:59 05:59 05:59 Intake Total 2320 / 2320 4350 / 4350 3860 / 3860 920 / 920 Output Total 2540 / 2540 3145 / 3145 3095 / 3095 2225 / 2225 Balance -220 / -220 1205 / 1205 765 / 765 -1305 / -1305 Weight 167 lb 8 oz 168 lb 8 oz 174 lb - Labs 04/04/18 04:40 04/05/18 04:23 Assessment and Plan (1) Diverticular disease of intestine with perforation and abscess Status: Acute Assessment and plan: Continue present therapy Advanced to soft diet Current Visit: Yes (2) Otitis media of left ear with rupture of tympanic membrane Status: Acute Assessment and plan: Continue home medications Current Visit: No (3) Depression Status: Chronic Assessment and plan: Continue home medications Current Visit: No (4) Neurogenic bladder Status: Chronic Current Visit: No (5) Parkinson's disease Problem details: with profound fatigue and lethargy, requiring stimulants for control Status: Chronic Assessment and plan: Continue home medications Current Visit: No - Time Spent With Patient Total time spent is greater than 50% in coordination of care (as documented) at patient's floor/unit and/or counseling patient:
[2018-04-07] MEDS: LORazepam 2 MG/ML VIAL IV PRN (22:47)
[2018-04-08] MEDS: metroNIDAZOLE 500 MG/100 ML BAG IV SCH ×3 (00:30→12:26)
[2018-04-08] MEDS: METOCLOPRAMIDE 10 MG/2 ML VIAL IV SCH ×3 (00:31→12:26)
[2018-04-08] MEDS: 0.9 % SODIUM CHLORIDE 1,000 ML IV SCH ×2 (00:40→09:22)
[2018-04-08] MEDS: PIPERACILLIN SODIUM/TAZOBACTAM 3.375 GM in DEXTROSE 5% IN WATER 50 ML IV SCH ×2 (05:02→11:10)
[2018-04-08] MEDS: PANTOPRAZOLE 40 MG VIAL IV SCH (07:51)
[2018-04-08] MEDS: VILAZODONE HCL 20 MG PO SCH (09:20)
[2018-04-08] MEDS: GABAPENTIN 300 MG CAPSULE PO SCH (09:20)
[2018-04-08] MEDS: CARBIDOPA PO SCH (09:21)
[2018-04-08] MEDS: LEVODOPA PO SCH (09:21)
[2018-04-08] MEDS: ENTACAPONE 200 MG PO SCH (09:21)
[2018-04-08] MEDS: OFLOXACIN BOTH EARS SCH (09:22)
[2018-04-08] MEDS: ARMODAFINIL 200 MG PO SCH (09:30)
[2018-04-08] MEDS: BACLOFEN 10 MG TABLET PO PRN (09:30)
[2018-04-08] MEDS: NICOTINE 21 MG PATCH TOPICAL SCH (11:10)
--- NOTE | 2018-04-08 14:17 | Discharge Summary ---
Providers - Providers Patient information: Note initiated : 04/08/18 at 2:16 pm Service Date, if different from initiated Date: [] Patient: Se Mccoy 48 y/o M admitted on 03/29/18 for abdominal pain. Chief Complaint: [] Date of admission: 03/29/18 Discharge date: 04/08/18 Attending physician: Shanell Kumar Hospitalization Hospital course: 48-year-old male with history of diverticulitis who was previously hospitalized for inpatient treatment. Was at home on oral treatment he became progressively worse and was readmitted. Follow-up CT of the abdomen and pelvis reveal multiple new abscesses. Patient was explored on 30 March where multiple pelvic and interloop abscesses were drained. He had sigmoid colectomy with colostomy and Rowe's pouch. His abdomen was copiously irrigated AND HIS PELVIS WAS DRAINED ELEAZAR drains. He has done well and is now much improved. He is discharged home on ciprofloxacin and Flagyl for another week. I will follow him up in the office on April 06. Discharge diagnosis: acute diverticulitis with perforation and abscess Secondary discharge diagnosis: Parkinson's disease dEGENERATIVE JOINT DISEASE Degenerative disc disease Chronic asthma Reason for admission: acute diverticulitis with abscess Procedures: Sigmoid colectomy WITH DRAINAGE OF MULTIPLE PELVIC ABSCESSES and Rowe's pouch Pertinent studies/significant findings: CT of abdomen and pelvis with IV contrast Complications: None Exam Temp Pulse Resp BP Pulse Ox 98.7 F 88 16 139/74 98 04/08/18 12:00 04/08/18 12:00 04/08/18 12:00 04/08/18 12:00 04/08/18 12:00 - General physical appearance well developed, well nourished, no distress - Eyes PERRL, normal ocular movement - ENT normal pinna, normal nares, normal mucosa, no hearing loss, no congestion - Head Head exam IM: Present: atraumatic, normocephalic - Neck no masses, no bruits, trachea midline, no lymphadenopathy, no venous distension - Cardiovascular Cardiovascular exam IM: Present: normal rate and rhythm - Respiratory normal expansion, normal respiratory effort, clear to percussion, clear to auscultation - Abdomen Abdomen: Present: soft, tender (mmild incisional tenderness; stoma is functioning well;;;;;;;;;;; good active bowel sounds; no distention), bowel sounds Hernia: Present: none - Genitourinary Present: normal penis with no external lesions - Integumentary Present: no rash, no growths, no abnormal pigmentation - Musculoskeletal Present: normal gait, normal posture - Psychiatric Present: oriented to time, oriented to person, oriented to place, speech is normal, memory intact Discharge Plan - Patient/Caregiver Discharge Instructions Activity: increase activity as tolerated, other (EMPTY and RE-charge Guicho-Hussein drains twice daily and as needed) Diet: Regular Diet Additional Instructions: Routine colostomy care Advance diet as tolerated Prescriptions: Ciprofloxacin [Cipro] 500 mg PO BID #30 tab metroNIDAZOLE [Flagyl] 500 mg PO Q8 #60 tab - Follow up Plan Follow up with: Pelon Stephens MD [Primary Care Provider] - Disposition: Home, Self-Care Prognosis: Good Rehab Potential: Good I certify that the patient requires SNF services.: No Overall status at discharge: patient is progressing back to baseline (45 minutes was needed to arrange for outpatient antibiotics, discuss care with daughter and complete evaluation and discharge summary) Pending Studies Resuscitation Status Full Code Diet GI Soft/Transitional Start [place] Apr 06 1541 Baclofen (Lioresal) 20 mg PO TIDP PRN PRN Reason: muscle spasm Last Admin: 04/08/18 09:30 Dose: 20 mg Admin: 04/07/18 22:42 Dose: 20 mg Admin: 04/07/18 15:32 Dose: 20 mg Admin: 04/07/18 08:02 Dose: 20 mg Admin: 04/06/18 15:04 Dose: 20 mg Admin: 04/05/18 22:51 Dose: 20 mg Admin: 04/05/18 15:11 Dose: 20 mg Admin: 04/05/18 08:49 Dose: 20 mg Admin: 04/04/18 21:47 Dose: 20 mg Admin: 04/04/18 15:19 Dose: 20 mg Admin: 04/03/18 20:58 Dose: 20 mg Gabapentin (Neurontin) 300 mg PO BID@0800,2300 JOHNY Last Admin: 04/08/18 09:20 Dose: 300 mg Admin: 04/07/18 22:43 Dose: 300 mg Admin: 04/07/18 08:02 Dose: 300 mg Admin: 04/06/18 23:00 Dose: 300 mg Admin: 04/06/18 08:05 Dose: 300 mg Admin: 04/05/18 22:52 Dose: 300 mg Hydromorphone HCl (Dilaudid) 1 mg IV Q2HP PRN PRN Reason: PAIN LEVEL > 6 Last Admin: 04/07/18 20:38 Dose: 1 mg Admin: 04/07/18 15:32 Dose: 1 mg Admin: 04/07/18 06:34 Dose: 1 mg Admin: 04/06/18 19:26 Dose: 1 mg Admin: 04/06/18 15:13 Dose: 1 mg Admin: 04/06/18 12:17 Dose: 1 mg Admin: 04/06/18 08:21 Dose: 1 mg Admin: 04/06/18 03:34 Dose: 1 mg Admin: 04/05/18 21:32 Dose: 1 mg Admin: 04/05/18 17:50 Dose: 1 mg Admin: 04/05/18 14:03 Dose: 1 mg Admin: 04/05/18 10:02 Dose: 1 mg Admin: 04/05/18 03:09 Dose: 1 mg Admin: 04/04/18 21:47 Dose: 1 mg Admin: 04/04/18 18:18 Dose: 1 mg Admin: 04/04/18 13:38 Dose: 1 mg Admin: 04/04/18 05:15 Dose: 1 mg Admin: 04/03/18 23:05 Dose: 1 mg Admin: 04/03/18 21:04 Dose: 1 mg Admin: 04/03/18 17:17 Dose: 1 mg Admin: 04/03/18 15:34 Dose: 1 mg Admin: 04/03/18 12:45 Dose: 1 mg Admin: 04/03/18 09:50 Dose: 1 mg Admin: 04/03/18 05:24 Dose: 1 mg Admin: 04/03/18 01:28 Dose: 1 mg Admin: 04/02/18 22:50 Dose: 1 mg Admin: 04/02/18 20:26 Dose: 1 mg Admin: 04/02/18 17:14 Dose: 1 mg Admin: 04/02/18 14:28 Dose: 1 mg Admin: 04/02/18 11:15 Dose: 1 mg Admin: 04/02/18 08:04 Dose: 1 mg Admin: 04/02/18 06:00 Dose: 1 mg Admin: 04/02/18 04:03 Dose: 1 mg Admin: 04/02/18 01:59 Dose: 1 mg Admin: 04/02/18 00:05 Dose: 1 mg Admin: 04/01/18 21:44 Dose: 1 mg Admin: 04/01/18 19:44 Dose: 1 mg Admin: 04/01/18 17:23 Dose: 1 mg Admin: 04/01/18 15:11 Dose: 1 mg Admin: 04/01/18 12:35 Dose: 1 mg Admin: 04/01/18 10:13 Dose: 1 mg Admin: 04/01/18 07:31 Dose: 1 mg Admin: 04/01/18 05:00 Dose: 1 mg Admin: 04/01/18 03:04 Dose: 1 mg Admin: 04/01/18 01:02 Dose: 1 mg Admin: 03/31/18 23:01 Dose: 1 mg Admin: 03/31/18 20:44 Dose: 1 mg Admin: 03/31/18 18:20 Dose: 1 mg Admin: 03/31/18 16:05 Dose: 1 mg Admin: 03/31/18 14:05 Dose: 1 mg Admin: 03/31/18 11:39 Dose: 1 mg Admin: 03/31/18 09:10 Dose: 1 mg Admin: 03/31/18 07:10 Dose: 1 mg Admin: 03/31/18 05:02 Dose: 1 mg Admin: 03/31/18 03:00 Dose: 1 mg Admin: 03/30/18 22:42 Dose: 1 mg Admin: 03/30/18 18:54 Dose: 1 mg Admin: 03/30/18 16:15 Dose: 1 mg Admin: 03/30/18 14:09 Dose: 1 mg Metronidazole (Flagyl) 500 mg in 100 mls @ 100 mls/hr IV Q6H JOHNY Last Admin: 04/08/18 12:26 Dose: 100 mls/hr Infusion: 04/08/18 07:15 Dose: 100 mls/hr Admin: 04/08/18 06:15 Dose: 100 mls/hr Infusion: 04/08/18 05:03 Dose: 0 mls/hr Admin: 04/08/18 00:30 Dose: 100 mls/hr Infusion: 04/07/18 22:49 Dose: 0 mls/hr Admin: 04/07/18 17:51 Dose: 100 mls/hr Infusion: 04/07/18 13:26 Dose: 0 mls/hr Admin: 04/07/18 12:26 Dose: 100 mls/hr Infusion: 04/07/18 07:07 Dose: 0 mls/hr Admin: 04/07/18 06:07 Dose: 100 mls/hr Infusion: 04/07/18 01:05 Dose: 0 mls/hr Admin: 04/07/18 00:05 Dose: 100 mls/hr Infusion: 04/06/18 18:43 Dose: 100 mls/hr Admin: 04/06/18 17:43 Dose: 100 mls/hr Infusion: 04/06/18 13:20 Dose: 0 mls/hr Admin: 04/06/18 12:17 Dose: 100 mls/hr Infusion: 04/06/18 06:54 Dose: 100 mls/hr Admin: 04/06/18 05:54 Dose: 100 mls/hr Infusion: 04/06/18 00:30 Dose: 100 mls/hr Admin: 04/05/18 23:30 Dose: 100 mls/hr Infusion: 04/05/18 18:50 Dose: 100 mls/hr Admin: 04/05/18 17:50 Dose: 100 mls/hr Infusion: 04/05/18 13:45 Dose: 0 mls/hr Admin: 04/05/18 12:31 Dose: 100 mls/hr Infusion: 04/05/18 06:51 Dose: 100 mls/hr Admin: 04/05/18 05:51 Dose: 100 mls/hr Infusion: 04/05/18 00:28 Dose: 100 mls/hr Admin: 04/04/18 23:28 Dose: 100 mls/hr Infusion: 04/04/18 18:31 Dose: 100 mls/hr Admin: 04/04/18 17:31 Dose: 100 mls/hr Infusion: 04/04/18 13:32 Dose: 0 mls/hr Admin: 04/04/18 11:56 Dose: 100 mls/hr Infusion: 04/04/18 07:00 Dose: 100 mls/hr Admin: 04/04/18 05:49 Dose: 100 mls/hr Infusion: 04/04/18 01:31 Dose: 100 mls/hr Admin: 04/04/18 00:31 Dose: 100 mls/hr Infusion: 04/03/18 18:45 Dose: 100 mls/hr Admin: 04/03/18 17:45 Dose: 100 mls/hr Infusion: 04/03/18 13:00 Dose: 0 mls/hr Admin: 04/03/18 12:00 Dose: 100 mls/hr Infusion: 04/03/18 06:30 Dose: 0 mls/hr Admin: 04/03/18 05:24 Dose: 100 mls/hr Infusion: 04/03/18 00:55 Dose: 100 mls/hr Admin: 04/02/18 23:55 Dose: 100 mls/hr Infusion: 04/02/18 19:55 Dose: 100 mls/hr Admin: 04/02/18 18:55 Dose: 100 mls/hr Infusion: 04/02/18 13:55 Dose: 100 mls/hr Admin: 04/02/18 12:55 Dose: 100 mls/hr Infusion: 04/02/18 07:00 Dose: 100 mls/hr Admin: 04/02/18 06:00 Dose: 100 mls/hr Infusion: 04/02/18 01:04 Dose: 100 mls/hr Admin: 04/02/18 00:04 Dose: 100 mls/hr Infusion: 04/01/18 18:59 Dose: 100 mls/hr Admin: 04/01/18 17:59 Dose: 100 mls/hr Infusion: 04/01/18 13:15 Dose: 0 mls/hr Admin: 04/01/18 11:56 Dose: 100 mls/hr Infusion: 04/01/18 06:35 Dose: 0 mls/hr Admin: 04/01/18 05:33 Dose: 100 mls/hr Infusion: 04/01/18 02:02 Dose: 100 mls/hr Admin: 04/01/18 01:02 Dose: 100 mls/hr Infusion: 03/31/18 18:27 Dose: 100 mls/hr Admin: 03/31/18 17:27 Dose: 100 mls/hr Piperacillin Sod/Tazobactam (Sod 3.375 gm/ Dextrose) 50 mls @ 100 mls/hr IV Q6H JOHNY Last Admin: 04/08/18 11:10 Dose: 100 mls/hr Infusion: 04/08/18 06:16 Dose: 0 mls/hr Admin: 04/08/18 05:02 Dose: 100 mls/hr Infusion: 04/08/18 00:31 Dose: 0 mls/hr Admin: 04/07/18 22:50 Dose: 100 mls/hr Infusion: 04/07/18 22:49 Dose: 0 mls/hr Admin: 04/07/18 16:36 Dose: 100 mls/hr Infusion: 04/07/18 12:00 Dose: 0 mls/hr Admin: 04/07/18 11:30 Dose: 100 mls/hr Infusion: 04/07/18 06:08 Dose: 0 mls/hr Admin: 04/07/18 04:55 Dose: 100 mls/hr Infusion: 04/06/18 23:35 Dose: 0 mls/hr Admin: 04/06/18 23:03 Dose: 100 mls/hr Infusion: 04/06/18 17:00 Dose: 0 mls/hr Admin: 04/06/18 16:27 Dose: 100 mls/hr Infusion: 04/06/18 11:20 Dose: 0 mls/hr Admin: 04/06/18 10:47 Dose: 100 mls/hr Infusion: 04/06/18 05:24 Dose: 100 mls/hr Admin: 04/06/18 04:54 Dose: 100 mls/hr Infusion: 04/05/18 23:18 Dose: 100 mls/hr Admin: 04/05/18 22:48 Dose: 100 mls/hr Infusion: 04/05/18 17:05 Dose: 0 mls/hr Admin: 04/05/18 16:33 Dose: 100 mls/hr Infusion: 04/05/18 12:00 Dose: 0 mls/hr Admin: 04/05/18 11:29 Dose: 100 mls/hr Infusion: 04/05/18 05:45 Dose: 100 mls/hr Admin: 04/05/18 05:15 Dose: 100 mls/hr Infusion: 04/04/18 23:19 Dose: 100 mls/hr Admin: 04/04/18 22:49 Dose: 100 mls/hr Infusion: 04/04/18 17:28 Dose: 0 mls/hr Admin: 04/04/18 16:44 Dose: 100 mls/hr Infusion: 04/04/18 11:55 Dose: 0 mls/hr Admin: 04/04/18 11:08 Dose: 100 mls/hr Infusion: 04/04/18 05:45 Dose: 100 mls/hr Admin: 04/04/18 05:09 Dose: 100 mls/hr Infusion: 04/04/18 00:16 Dose: 100 mls/hr Admin: 04/03/18 23:46 Dose: 100 mls/hr Infusion: 04/03/18 17:38 Dose: 0 mls/hr Admin: 04/03/18 16:54 Dose: 100 mls/hr Infusion: 04/03/18 11:30 Dose: 0 mls/hr Admin: 04/03/18 11:00 Dose: 100 mls/hr Infusion: 04/03/18 05:15 Dose: 0 mls/hr Admin: 04/03/18 04:44 Dose: 100 mls/hr Infusion: 04/02/18 23:19 Dose: 100 mls/hr Admin: 04/02/18 22:49 Dose: 100 mls/hr Infusion: 04/02/18 18:00 Dose: 100 mls/hr Admin: 04/02/18 17:30 Dose: 100 mls/hr Infusion: 04/02/18 12:45 Dose: 100 mls/hr Admin: 04/02/18 12:15 Dose: 100 mls/hr Infusion: 04/02/18 05:30 Dose: 100 mls/hr Admin: 04/02/18 05:00 Dose: 100 mls/hr Infusion: 04/01/18 23:24 Dose: 100 mls/hr Admin: 04/01/18 22:54 Dose: 100 mls/hr Infusion: 04/01/18 17:45 Dose: 0 mls/hr Admin: 04/01/18 17:14 Dose: 100 mls/hr Infusion: 04/01/18 11:34 Dose: 0 mls/hr Admin: 04/01/18 11:04 Dose: 100 mls/hr Infusion: 04/01/18 05:30 Dose: 0 mls/hr Admin: 04/01/18 05:00 Dose: 100 mls/hr Infusion: 03/31/18 23:34 Dose: 100 mls/hr Admin: 03/31/18 23:04 Dose: 100 mls/hr Infusion: 03/31/18 18:00 Dose: 100 mls/hr Admin: 03/31/18 17:30 Dose: 100 mls/hr Sodium Chloride (Sodium Chloride 0.9%) 1,000 mls @ 75 mls/hr IV .[id number] [facility] Last Admin: 04/08/18 09:22 Dose: Not Given Admin: 04/08/18 00:40 Dose: Admin: 04/07/18 16:43 Dose: 75 mls/hr Infusion: 04/07/18 16:41 Dose: 0 mls/hr Admin: 04/07/18 06:37 Dose: Not Given Admin: 04/06/18 22:39 Dose: 75 mls/hr Infusion: 04/06/18 16:54 Dose: 75 mls/hr Admin: 04/06/18 16:14 Dose: Not Given Admin: 04/06/18 03:34 Dose: 75 mls/hr Infusion: 04/05/18 23:21 Dose: 75 mls/hr Admin: 04/05/18 14:07 Dose: Not Given Admin: 04/05/18 10:01 Dose: 75 mls/hr Infusion: 04/05/18 07:21 Dose: 75 mls/hr Admin: 04/05/18 04:27 Dose: Admin: 04/04/18 18:01 Dose: 75 mls/hr Infusion: 04/04/18 17:59 Dose: 0 mls/hr Admin: 04/04/18 03:46 Dose: 75 mls/hr Infusion: 04/03/18 23:16 Dose: 75 mls/hr Admin: 04/03/18 09:56 Dose: 75 mls/hr Lorazepam (Ativan) 1 mg IV Q6HP PRN PRN Reason: ANXIETY/SEDATION Last Admin: 04/07/18 22:47 Dose: 1 mg Admin: 04/04/18 09:45 Dose: 1 mg Admin: 04/02/18 17:27 Dose: 1 mg Admin: 04/01/18 18:07 Dose: 1 mg Admin: 03/31/18 20:45 Dose: 1 mg Admin: 03/31/18 01:14 Dose: 1 mg Admin: 03/30/18 19:00 Dose: 1 mg Metoclopramide HCl (Reglan) 10 mg IV Q6 JOHNY Last Admin: 04/08/18 12:26 Dose: 10 mg Admin: 04/08/18 06:15 Dose: 10 mg Admin: 04/08/18 00:31 Dose: 10 mg Admin: 04/07/18 17:51 Dose: 10 mg Admin: 04/07/18 12:30 Dose: 10 mg Admin: 04/07/18 06:27 Dose: 10 mg Admin: 04/06/18 23:00 Dose: 10 mg Admin: 04/06/18 17:43 Dose: 10 mg Admin: 04/06/18 12:17 Dose: 10 mg Admin: 04/06/18 05:54 Dose: 10 mg Admin: 04/05/18 23:29 Dose: 10 mg Admin: 04/05/18 17:50 Dose: 10 mg Admin: 04/05/18 12:31 Dose: 10 mg Admin: 04/05/18 05:21 Dose: 10 mg Admin: 04/04/18 23:28 Dose: 10 mg Admin: 04/04/18 18:12 Dose: 10 mg Admin: 04/04/18 11:56 Dose: 10 mg Admin: 04/04/18 05:09 Dose: 10 mg Admin: 04/03/18 23:46 Dose: 10 mg Admin: 04/03/18 17:45 Dose: 10 mg Admin: 04/03/18 12:51 Dose: 10 mg Admin: 04/03/18 05:36 Dose: 10 mg Admin: 04/03/18 01:25 Dose: 10 mg Admin: 04/02/18 17:15 Dose: 10 mg Admin: 04/02/18 12:15 Dose: 10 mg Admin: 04/02/18 06:00 Dose: 10 mg Admin: 04/02/18 00:04 Dose: 10 mg Admin: 04/01/18 17:59 Dose: 10 mg Admin: 04/01/18 11:55 Dose: 10 mg Admin: 04/01/18 05:33 Dose: 10 mg Admin: 04/01/18 01:06 Dose: 10 mg Admin: 03/31/18 17:27 Dose: 10 mg Admin: 03/31/18 11:51 Dose: 10 mg Admin: 03/31/18 05:01 Dose: 10 mg Admin: 03/31/18 00:59 Dose: 10 mg Admin: 03/30/18 17:16 Dose: 10 mg Nicotine (Nicoderm) 21 mg TOPICAL DAILY@1000 JOHNY Last Admin: 04/08/18 11:10 Dose: Not Given Admin: 04/07/18 08:12 Dose: Not Given Admin: 04/06/18 09:27 Dose: Not Given Admin: 04/05/18 09:40 Dose: Not Given Admin: 04/04/18 08:48 Dose: Not Given Admin: 04/03/18 09:40 Dose: Not Given Admin: 04/02/18 09:58 Dose: Not Given Admin: 04/01/18 10:14 Dose: Not Given Admin: 03/31/18 09:10 Dose: Not Given Ondansetron HCl (Zofran) 4 mg IV Q4HP PRN PRN Reason: Nausea And Vomiting Last Admin: 04/06/18 13:13 Dose: 4 mg Admin: 04/05/18 22:46 Dose: 4 mg Admin: 04/03/18 15:34 Dose: 4 mg Admin: 04/03/18 09:50 Dose: 4 mg Admin: 04/02/18 11:21 Dose: 4 mg Admin: 03/31/18 15:57 Dose: 4 mg Admin: 03/31/18 10:34 Dose: 4 mg Admin: 03/30/18 16:07 Dose: 4 mg Pantoprazole Sodium (Protonix) 40 mg IV BIDAC [facility] Last Admin: 04/08/18 07:51 Dose: 40 mg Admin: 04/07/18 16:33 Dose: 40 mg Admin: 04/07/18 08:12 Dose: 40 mg Admin: 04/06/18 16:27 Dose: 40 mg Admin: 04/06/18 08:05 Dose: 40 mg Admin: 04/05/18 16:33 Dose: 40 mg Admin: 04/05/18 07:59 Dose: 40 mg Admin: 04/04/18 16:44 Dose: 40 mg Admin: 04/04/18 07:48 Dose: 40 mg Admin: 04/03/18 17:19 Dose: 40 mg Admin: 04/03/18 09:49 Dose: 40 mg Admin: 04/02/18 17:13 Dose: 40 mg Admin: 04/02/18 07:54 Dose: 40 mg Admin: 04/01/18 17:15 Dose: 40 mg Admin: 04/01/18 07:26 Dose: 40 mg Admin: 03/31/18 17:27 Dose: 40 mg Admin: 03/31/18 07:13 Dose: 40 mg Admin: 03/30/18 17:15 Dose: 40 mg Ofloxacin [Ofloxacin (] Ear Drops) 1 dose BOTH EARS BID JOHNY Last Admin: 04/08/18 09:22 Dose: Not Given Admin: 04/07/18 22:46 Dose: Not Given Admin: 04/07/18 08:03 Dose: Not Given Admin: 04/06/18 22:34 Dose: Admin: 04/06/18 08:05 Dose: Not Given Admin: 04/05/18 22:52 Dose: Not Given Admin: 04/05/18 08:52 Dose: Not Given Admin: 04/04/18 21:49 Dose: Not Given Admin: 04/04/18 08:45 Dose: Not Given Admin: 04/03/18 20:59 Dose: Not Given Admin: 04/03/18 09:40 Dose: Not Given Admin: 04/02/18 20:53 Dose: Not Given Admin: 04/02/18 09:57 Dose: Not Given Admin: 04/01/18 20:22 Dose: Not Given Admin: 04/01/18 08:55 Dose: Not Given Admin: 03/31/18 20:46 Dose: Not Given Admin: 03/31/18 07:15 Dose: Not Given Admin: 03/30/18 21:17 Dose: Not Given Carbidopa 37.5 Mg/Levodopa 100 Mg/Entacapone 200 Mg Tab 1 dose PO TID@0800,1500 ,2300 [facility] Last Admin: 04/08/18 09:21 Dose: 1 dose Admin: 04/07/18 22:44 Dose: 1 dose Admin: 04/07/18 15:32 Dose: 1 dose Admin: 04/07/18 08:01 Dose: 1 dose Admin: 04/06/18 23:00 Dose: 1 dose Admin: 04/06/18 15:04 Dose: 1 dose Admin: 04/06/18 08:04 Dose: 1 dose Admin: 04/05/18 22:53 Dose: 1 dose Admin: 04/05/18 15:11 Dose: 1 dose Vilazodone Hcl [ (Viibryd] 20 Mg Tab) 1 dose PO DAILY@0800 [facility] Last Admin: 04/08/18 09:20 Dose: 1 dose Admin: 04/07/18 08:01 Dose: 1 dose Admin: 04/06/18 08:04 Dose: 1 dose Vilazodone Hcl [ (Viibryd] 40 Mg Tab) 1 dose PO DAILY@0800 [facility] Last Admin: 04/08/18 09:21 Dose: 1 dose Admin: 04/07/18 08:01 Dose: 1 dose Admin: 04/06/18 08:04 Dose: 1 dose Armodafinil (Nuvigil () 200 Mg Tab) 1 dose PO DAILY@0800 [facility] Last Admin: 04/08/18 09:30 Dose: 1 dose Admin: 04/07/18 08:04 Dose: 1 dose Admin: 04/06/18 08:03 Dose: 1 dose Trazodone HCl (Desyrel) [address] [facility] Last Admin: 04/07/18 22:47 Dose: Not Given Admin: 04/07/18 02:25 Dose: Not Given Admin: 04/05/18 22:52 Dose: Not Given Admin: 04/04/18 21:50 Dose: Not Given Admin: 04/03/18 20:59 Dose: Not Given Admin: 04/02/18 20:53 Dose: Not Given Admin: 04/01/18 20:22 Dose: Not Given Admin: 03/31/18 20:45 Dose: Not Given Admin: 03/30/18 21:16 Dose: Not Given Shift Summary 04/08/18 05:25 Shift Summary by Itz Lugo PRN pain med given x2 this shift; pain well managed; pt becoming comfortable with ostomy care and ELEAZAR drain care; dressings CDI, IVF continue and IV abx, IV reglan. Up independently with rolling walker in room, with SB assist in beavers. Initialized on 04/08/18 05:25 - END OF NOTE
--- NOTE | 2018-04-09 12:17 | Operative Note ---
DATE OF OPERATION: 03/30/2018 PREOPERATIVE DIAGNOSIS: Recurrent diverticulitis with pelvic abscesses. POSTOPERATIVE DIAGNOSIS: Recurrent diverticulitis with multiple pelvic abscesses. PROCEDURE: Sigmoid colectomy with drainage of multiple pelvic abscesses, colostomy with Erinn's pouch. FINDINGS: Extensive inflammatory disease of the pelvis with 5 separate well-defined abscesses and inflammation involving the bladder, sigmoid colon, rectum and 4 loops of small bowel and omentum. DESCRIPTION OF PROCEDURE: Under general anesthesia, the patient's abdomen was prepped and draped in a sterile field. A midline incision was made. Upon entering the peritoneal cavity, there was a small amount of free serous fluid, but no gross purulence. The incision was extended above the umbilicus in the midline. The abdomen was packed off so as to get better access to the pelvis. Evaluation revealed a very large inflammatory mass involving bladder, rectum and small bowel and omentum. Using finger fractionation, the omentum was initially from the inflammatory mass. Irrigation was carried out. Next, the small bowel was followed and using finger fractionation was followed down into the pelvis where there were two large pockets of purulent drainage that were removed. It was apparent that I would need to separate the bladder and the colon before I could get to the base of the small bowel that was densely adherent in this large inflammatory mass. The dome of the bladder was from the sigmoid colon using blunt dissection and electrocautery. Two large abscess cavities were encountered during this dissection. Once I was able to separate the bladder and the sigmoid colon, it was noted in the deep pelvis that there was another large abscess. This was irrigated and cultured. Next, the sigmoid colon was dissected down to the rectum and I was able to fully evaluate the involvement of the sigmoid. The loops of small bowel were then . Fibrinous debris from the small bowel was able to be removed by blunt wiping with a moist laparotomy sponge. The bowel did not seem to be involved except for the serosal surface. Dissection was continued above and below the inflamed sigmoid. Proximal to the inflamed segment the bowel was divided using a VICKI 55 stapler. The rectum was divided using a VICKI 55 stapler. The rectal stump was restapled using a TA 60 stapler. It was then sutured with two long sutures of 0 Prolene for future identification. The mesocolon to the sigmoid was divided using a LigaSure. The larger vessels were dissected, doubly clamped and divided with Metzenbaum scissors. The specimen was passed off. The clamped vessels were controlled with sutures of 2-0 silk. The ureter was identified and was not injured. The back of the bladder was inspected and there did not appear to be any fistulization between the colon and the bladder. An opening for the stoma was made in the left lower quadrant at the lateral margin of the rectus muscle. A muscle splitting incision was made and it was enlarged to accommodate the inflamed sigmoid colon and mesentery. The bowel was then sutured to the fascia and peritoneum using circumferential interrupted 3-0 silks. The lateral defect was closed with interrupted 3-0 silks to prevent herniation of small bowel. Further irrigation was carried out and two ELEAZAR drains were placed in the pelvis and brought out in the right lower quadrant through separate stab incisions. The upper abdomen was irrigated and the nasogastric tube was positioned in the stomach. Sponge, needle, instrument and blade counts were verified as correct. The bowel was returned to the peritoneal cavity and the midline fascia was closed with running #1 Prolene. Subcutaneous tissue was irrigated with bacitracin solution and closed with 2-0 Monocryl. Skin was closed with brice. The stoma was matured using 3-0 silk on the wall of the colon and the anterior rectus fascia. This was done circumferentially. The end of the bowel was opened and the end of the bowel was sutured to the dermis using four sutures of interrupted 3-0 Vicryl and then a running-locking 3-0 Vicryl circumferentially. The stoma was viable and had good length. A Tegaderm dressing was placed over the incision and the stoma appliance was placed. The drains were secured with 3-0 nylon. The patient tolerated the procedure well. He was awakened, transferred to a bed, and taken to the postanesthetic care unit in stable, satisfactory condition. LCS:[facility]renity Job ID: [id number] Doc ID: [id number] Shanell Kumar M.D.
== END 2018-04-08 15:56 | disposition home or self-care (01) | DRG 329 ==
LOC: ED 12:52 → MEDSUR 17:27
PROVIDERS: ADMIT Family Medicine Adult Medicine; ATTEND Family Medicine Adult Medicine
CPT/HCPCS: 44143; 49020; 80047; 85014; 88341; G0462; J0131; J0330; J0744; J1100; J1170; J2001; J2060; J2175; J2250; J2405; J2543; J2550; J2710; J2765; J3010; J7030; J7060; J7120; Q9967

== ENCOUNTER 2018-07-09 05:33 | Inpatient (IN) ==
--- NOTE | 2018-07-04 12:33 | XRay Report ---
INDICATION: Preoperative evaluation TECHNIQUE: PA and lateral upright chest x-ray COMPARISON: Previous chest x-rays dated 03/12/2018, 01/02/2017, 04/11/2014 FINDINGS:There is hyperexpansion suggesting possible COPD. No focal pulmonary parenchymal infiltrate. No parenchymal mass. Heart size and vascularity are normal. Ольга and mediastinum are negative. No acute abnormality or interval change IMPRESSION: 1. Hyperexpansion. Probable COPD 2. No acute or focal abnormality Interpreted and Authenticated by: Jose Medina 07/04/18
[2018-07-04 15:26] LABS: ALT/SGPT 7 U/l (0-40); Albumin 4.6 gm/dL (3.2-5.2); Albumin/Globulin Ratio 1.5 (1.0-2.3); Alkaline Phosphatase 85 U/L (39-117); Blood Urea Nitrogen 12 mg/dl (6-20)
[2018-07-04 15:28] LABS: Basophils # (Auto) 0.1 K/mcL (0.0-0.3); Basophils % (Auto) 0.7 % (0.0-2.0); Eosinophils # (Auto) 0.1 K/mcL (0.0-0.7); Eosinophils % (Auto) 1.1 % (0.0-7.0); Granulocytes % (Auto) 56.4 % (38.0-78.0); Lymphocytes # (Auto) 2.9 K/mcL (1.5-4.8); Lymphocytes % (Auto) 35.3 % (15.5-49.0); Mean Cell Volume 92.3 fL (80.0-100.0); Mean Corpuscular HGB Conc 33.2 g/dL (31.0-36.0); Monocytes # (Auto) 0.5 K/mcL (0.1-0.9); Monocytes % (Auto) 6.5 % (1.0-12.0); Platelet Count 293 K/mcL (140-440); RBC 4.79 M/mcL (4.50-5.90); Red Cell Distribution Width 12.7 % (11.5-14.5)
[~2018-07-09 05:33] MED LIST: 0.9 % SODIUM CHLORIDE 250 ML IV SCH
[2018-07-09] MEDS ORDERED: LEVOFLOXACIN 750 MG/150 ML BAG IV ONE (07:00)
[2018-07-09] MEDS ORDERED: metroNIDAZOLE 500 MG/100 ML BAG IV ONE (08:00)
[2018-07-09] MEDS ORDERED: KETAMINE 100 MG/ML ML IV ONE (09:00)
[2018-07-09] MEDS ORDERED: ROCURONIUM 10 MG/ML ML IV ONE (09:00)
[2018-07-09] MEDS ORDERED: LIDOCAINE HCL/PF 100 MG/5 ML SYRINGE IV ONE (09:00)
[2018-07-09] MEDS ORDERED: fentaNYL 250 MCG/5 ML VIAL IV ONE (09:00)
[2018-07-09] MEDS ORDERED: ONDANSETRON 4 MG/2 ML VIAL IV ONE (09:00)
[2018-07-09] MEDS ORDERED: GLYCOPYRROLATE 0.2 MG/ML VIAL IV ONE (09:00)
[2018-07-09] MEDS ORDERED: PROPOFOL 200 MG/20 ML VIAL IV ONE (09:00)
[2018-07-09] MEDS ORDERED: MIDAZOLAM 5 MG/5 ML VIAL IV ONE (09:00)
[2018-07-09] MEDS ORDERED: SUGAMMADEX SODIUM 200 MG/2 ML VIAL IV ONE (09:00)
[2018-07-09] MEDS ORDERED: DEXAMETHASONE 10 MG/ML VIAL IV ONE (09:00)
[2018-07-09] MEDS ORDERED: NALOXONE HCL 0.4 MG/ML VIAL IV PRN (11:29)
[2018-07-09] MEDS ORDERED: PROMETHAZINE 25 MG/ML VIAL IV PRN (11:29)
[2018-07-09] MEDS ORDERED: FLUMAZENIL 0.1 MG/ML ML IV PRN (11:29)
[2018-07-09] MEDS ORDERED: IPRATROPIUM/ALBUTEROL 3 ML AMPUL.NEB NEB PRN (11:29)
[2018-07-09] MEDS ORDERED: ONDANSETRON 4 MG/2 ML VIAL IV PRN ×2 (11:29→13:24)
[2018-07-09] MEDS ORDERED: LACTATED RINGERS 250 ML IV PRN (11:29)
[2018-07-09] MEDS ORDERED: METHOCARBAMOL 1,000 MG/10 ML VIAL IV PRN (11:29)
[2018-07-09] MEDS ORDERED: BENZOCAINE/MENTHOL 1 LOZENGE PO PRN (11:29)
[2018-07-09] MEDS ORDERED: ACETAMINOPHEN 1,000 MG/100 ML BOTTLE IV ONE (11:29)
[2018-07-09] MEDS ORDERED: LACTATED RINGERS 1,000 ML IV SCH (11:30)
--- NOTE | 2018-07-09 12:21 | Brief Operative Note ---
Date of procedure: 07/09/18 Pre-op diagnosis: colostomy status Post-op diagnosis: other (colostomy status) Procedure: colostomy takedown Grafts/Implants: No ([id number]) Anesthesia: GETA Complications: none Surgeon: Shanell Kumar Estimated blood loss (cc): 50 Specimens Removed/Pathology: other (stoma end) Condition: stable Disposition: PACU
[2018-07-09] MEDS: fentaNYL 100 MCG/2 ML VIAL IV PRN ×5 (12:41→12:56)
[2018-07-09] MEDS ORDERED: HYDROmorphone 2 MG/ML VIAL IV PRN ×2 (12:54→13:15)
[2018-07-09] MEDS ORDERED: HYDROmorphone 2 MG/ML VIAL ONE (13:00)
[2018-07-09] MEDS ORDERED: KETOROLAC 30 MG/ML VIAL IV ONE (13:08)
[2018-07-09] MEDS ORDERED: ACETAMINOPHEN 1,000 MG in PREMIX 1 BAG IV SCH (13:24)
[2018-07-09] MEDS: 0.9 % SODIUM CHLORIDE 1,000 ML IV SCH ×2 (13:34→21:58)
[2018-07-09] MEDS: HYDROmorphone 2 MG/ML VIAL IV PRN ×6 (13:45→23:51)
[2018-07-09] MEDS: 0.9 % SODIUM CHLORIDE 10 ML SYRINGE IV SCH ×2 (13:54→20:01)
[2018-07-09] MEDS ORDERED: ACETAMINOPHEN 1,000 MG/100 ML BOTTLE IV SCH (14:00)
[2018-07-09] MEDS: ACETAMINOPHEN 1,000 MG/100 ML BOTTLE IV SCH ×2 (14:01→20:00)
[2018-07-09] MEDS: PIPERACILLIN SODIUM/TAZOBACTAM 3.375 GM in DEXTROSE 5% IN WATER 50 ML IV SCH ×3 (14:30→23:52)
[2018-07-09] MEDS: PANTOPRAZOLE 40 MG VIAL IV SCH (17:00)
[2018-07-09] MEDS: METOCLOPRAMIDE 10 MG/2 ML VIAL IV SCH ×2 (18:11→23:51)
[2018-07-10] MEDS: ACETAMINOPHEN 1,000 MG/100 ML BOTTLE IV SCH ×2 (01:57→08:26)
[2018-07-10] MEDS: HYDROmorphone 2 MG/ML VIAL IV PRN ×11 (01:58→23:26)
[2018-07-10] MEDS: 0.9 % SODIUM CHLORIDE 1,000 ML IV SCH ×3 (05:23→23:26)
[2018-07-10] MEDS: METOCLOPRAMIDE 10 MG/2 ML VIAL IV SCH ×4 (05:24→23:27)
[2018-07-10] MEDS: PIPERACILLIN SODIUM/TAZOBACTAM 3.375 GM in DEXTROSE 5% IN WATER 50 ML IV SCH (05:24)
[2018-07-10] MEDS: 0.9 % SODIUM CHLORIDE 10 ML SYRINGE IV SCH ×3 (05:25→21:41)
[2018-07-10 05:48] LABS: Basophils # (Auto) 0 K/mcL (0.0-0.3); Basophils % (Auto) 0.3 % (0.0-2.0); Eosinophils # (Auto) 0 K/mcL (0.0-0.7); Eosinophils % (Auto) 0.2 % (0.0-7.0); Granulocytes % (Auto) 71.1 % (38.0-78.0); Lymphocytes # (Auto) 2.6 K/mcL (1.5-4.8); Lymphocytes % (Auto) 20.1 % (15.5-49.0); Mean Cell Volume 93.1 fL (80.0-100.0); Mean Corpuscular HGB Conc 33.3 g/dL (31.0-36.0); Monocytes # (Auto) 1.1 K/mcL (0.1-0.9); Monocytes % (Auto) 8.3 % (1.0-12.0); Platelet Count 258 K/mcL (140-440); RBC 4.57 M/mcL (4.50-5.90)
[2018-07-10 06:20] LABS: ALT/SGPT 20 U/l (0-40); Albumin 3.6 gm/dL (3.2-5.2); Albumin/Globulin Ratio 1.5 (1.0-2.3); Alkaline Phosphatase 58 U/L (39-117); Bilirubin,Direct < 0.2 mg/dL (0.0-0.3); Blood Urea Nitrogen 18 mg/dl (6-20); Gamma Glutamyl Transpeptidase 24 U/L (8-61); Uric Acid 3.2 mg/dL (2.5-8.0)
[2018-07-10] MEDS: PANTOPRAZOLE 40 MG VIAL IV SCH ×2 (07:22→17:37)
[2018-07-10] MEDS: LORazepam 2 MG/ML VIAL IV PRN ×2 (11:50→19:38)
--- NOTE | 2018-07-10 13:16 | General Surgery Progress Note ---
Subjective Patient reports: still having pain, pain is less, no flatus, no bowel movement, afebrile Narrative: Note initiated : 07/10/18 at 1:14 pm Service Date, if different from initiated Date: [] Patient: Se Mccoy 48 y/o M admitted on 07/09/18 for Colostomy Takedown. Chief Complaint: [patient is on well. His pain is controlled. He denies nausea. He has no chest discomfort. Vital signs have been stable and he is afebrile. Inpatient panel was normal. White blood count 13, hemoglobin 14.2] Objective Temp Pulse Resp BP Pulse Ox 98.1 F 69 12 133/79 93 07/10/18 12:00 07/10/18 12:00 07/10/18 12:00 07/10/18 12:00 07/10/18 12:00 - Additional Data Intake & Output - Last 24 hours: Intake & Output 07/08/18 07/09/18 07/10/18 07/11/18 05:59 05:59 05:59 05:59 Intake Total 5327 50 Output Total 1650 Balance 3677 50 Weight 181 lb 11.2 oz 191 lb 12.8 oz 191 lb 12.8 oz - General physical appearance well developed, well nourished, no distress - Eyes PERRL, normal ocular movement - ENT normal pinna, normal nares, normal mucosa, no hearing loss, no congestion - Neck no masses, no bruits, trachea midline, no lymphadenopathy, no venous distension - Respiratory normal expansion, normal respiratory effort, clear to auscultation - Cardiovascular Cardiovascular exam: Present: normal rate and rhythm, RRR, +S1, +S2. Absent: JVD, tachycardia - Abdomen tender (moderate incisional tenderness; hypoactive bowel sounds; serosanguineous drainage) - Integumentary no rash, no growths, no abnormal pigmentation - Neurologic normal coordination, normal sensation - Musculoskeletal normal gait, normal posture - Psychiatric oriented to time, oriented to person, oriented to place, speech is normal, m [place] intact - Labs 07/10/18 04:20 07/10/18 04:20 Diabetes panel 07/10/18 Range/Units 04:20 Sodium 138 (133-145) mmol/L Potassium 4.0 (3.3-5.1) mmol/L Chloride 105 (96-108) mmol/L Carbon Dioxide 25 (22-30) mmol/L BUN 18 (6-20) mg/dl Creatinine 1.0 (0.7-1.2) mg/dl Glucose 100 (70-105) mg/dL Calcium 8.4 L (8.6-10.4) mg/dl AST 16 (0-37) U/l ALT 20 (0-40) U/l Alkaline Phosphatase 58 (39-117) U/L Total Protein 6.0 (5.9-8.4) gm/dL Albumin 3.6 (3.2-5.2) gm/dL Triglycerides 108 (<150) mg/dl Calcium panel 07/10/18 Range/Units 04:20 Calcium 8.4 L (8.6-10.4) mg/dl Phosphorus 4.0 (2.7-4.5) mg/dL Albumin 3.6 (3.2-5.2) gm/dL Pituitary panel 07/10/18 Range/Units 04:20 Sodium 138 (133-145) mmol/L Potassium 4.0 (3.3-5.1) mmol/L Chloride 105 (96-108) mmol/L Carbon Dioxide 25 (22-30) mmol/L BUN 18 (6-20) mg/dl Creatinine 1.0 (0.7-1.2) mg/dl Glucose 100 (70-105) mg/dL Calcium 8.4 L (8.6-10.4) mg/dl Adrenal panel 07/10/18 Range/Units 04:20 Sodium 138 (133-145) mmol/L Potassium 4.0 (3.3-5.1) mmol/L Chloride 105 (96-108) mmol/L Carbon Dioxide 25 (22-30) mmol/L BUN 18 (6-20) mg/dl Creatinine 1.0 (0.7-1.2) mg/dl Glucose 100 (70-105) mg/dL Calcium 8.4 L (8.6-10.4) mg/dl Total Bilirubin 0.9 (0.0-1.0) mg/dL AST 16 (0-37) U/l ALT 20 (0-40) U/l Alkaline Phosphatase 58 (39-117) U/L Total Protein 6.0 (5.9-8.4) gm/dL Albumin 3.6 (3.2-5.2) gm/dL Assessment and Plan (1) Status post colostomy takedown Status: Acute Assessment and plan: Patient is doing clinically well. I will continue his present treatment regimen. Current Visit: Yes - Time Spent With Patient Total time spent is greater than 50% in coordination of care (as documented) at patient's floor/unit and/or counseling patient:
--- NOTE | 2018-07-10 13:19 | Surgical Pathology Report ---
HISTOLOGY SPECIMEN MICROSCOPIC DIAGNOSIS ENTEROCUTANEOUS MUCOSA, COLOSTOMY REVISION: -- MILD FIBROSIS AND CHRONIC INFLAMMATION. -- VIABLE MARGIN OF RESECTION. (RLF:sln) PROCEDURAL IMPRESSION Status post colostomy. GROSS DESCRIPTION Received in formalin labeled ostomy end, is a whyte piece of skin that measures 3.5 x 0.8 cm. Centrally running down the surface are multiple sutures 3.2 cm in length. Extending from the skin is fatty whyte tissue and a segment of bowel that measures 5.6 cm in length by up to 4.3 cm in diameter. The margin is stapled. The fat extending from the skin is 5.5 x 3.7 x 3.6 cm. The margin is inked black. Within the segment of bowel the wall is up to 0.2 cm thick. The mucosa is whyte and plicated. Machine Mover sections submitted in four cassettes: A1 - ends; A2 - transition from surface to bowel; A3 - bowel margin; A4 - random section of bowel. (SCB:sln) Electronically Signed by: Landy Piper M.D.
[2018-07-11] MEDS: HYDROmorphone 2 MG/ML VIAL IV PRN ×9 (02:01→21:56)
[2018-07-11 05:52] LABS: Basophils # (Auto) 0 K/mcL (0.0-0.3); Basophils % (Auto) 0.3 % (0.0-2.0); Eosinophils # (Auto) 0.1 K/mcL (0.0-0.7); Eosinophils % (Auto) 0.7 % (0.0-7.0); Granulocytes % (Auto) 76.4 % (38.0-78.0); Lymphocytes # (Auto) 1.7 K/mcL (1.5-4.8); Lymphocytes % (Auto) 14.5 % (15.5-49.0); Mean Cell Volume 92.6 fL (80.0-100.0); Monocytes % (Auto) 8.1 % (1.0-12.0); Platelet Count 255 K/mcL (140-440); RBC 4.42 M/mcL (4.50-5.90); Red Cell Distribution Width 12.6 % (11.5-14.5)
[2018-07-11] MEDS: METOCLOPRAMIDE 10 MG/2 ML VIAL IV SCH ×4 (05:55→23:16)
[2018-07-11] MEDS: 0.9 % SODIUM CHLORIDE 10 ML SYRINGE IV SCH ×3 (05:55→21:57)
[2018-07-11 06:07] LABS: ALT/SGPT 16 U/l (0-40); Albumin 3.7 gm/dL (3.2-5.2); Albumin/Globulin Ratio 1.4 (1.0-2.3); Alkaline Phosphatase 63 U/L (39-117); Bilirubin,Direct < 0.2 mg/dL (0.0-0.3); Blood Urea Nitrogen 11 mg/dl (6-20); Gamma Glutamyl Transpeptidase 25 U/L (8-61); Uric Acid 3.3 mg/dL (2.5-8.0)
[2018-07-11] MEDS: PANTOPRAZOLE 40 MG VIAL IV SCH ×2 (07:31→17:15)
[2018-07-11] MEDS: LORazepam 2 MG/ML VIAL IV PRN ×3 (07:31→23:21)
[2018-07-11] MEDS: 0.9 % SODIUM CHLORIDE 1,000 ML IV SCH ×2 (07:41→15:36)
--- NOTE | 2018-07-11 13:58 | General Surgery Progress Note ---
Subjective Patient reports: feels better, still having pain, pain is less, no flatus, no bowel movement, afebrile Narrative: Note initiated : 07/11/18 at 1:56 pm Service Date, if different from initiated Date: [] Patient: Se Mccoy 48 y/o M admitted on 07/09/18 for Colostomy Takedown. Chief Complaint: [patient is doing well except for incisional pain. He denies chest pain shortness of breath. Vital signs have been stable and he is afebrile. He has not had flatus or bowel movement. His pain is well controlled with present analgesics.inpatient panel is normal; white blood count 11.8 hemoglobin 13.9] Objective Temp Pulse Resp BP Pulse Ox 97.6 F 85 20 134/79 94 07/11/18 12:00 07/11/18 11:56 07/11/18 12:00 07/11/18 12:00 07/11/18 12:00 - Additional Data Intake & Output - Last 24 hours: Intake & Output 07/09/18 07/10/18 07/11/18 07/12/18 05:59 05:59 05:59 05:59 Intake Total 5327 2632 1025 Output Total 1650 3215 1060 Balance 3677 -583 -35 Weight 181 lb 11.2 oz 191 lb 12.8 oz 193 lb 8 oz - General physical appearance well developed, well nourished, no distress - Eyes PERRL, normal ocular movement - ENT normal pinna, normal nares, normal mucosa, no hearing loss, no congestion - Neck no masses, no bruits, trachea midline, no lymphadenopathy, no venous distension - Respiratory normal expansion, normal respiratory effort, clear to auscultation - Cardiovascular Cardiovascular exam: Present: normal rate and rhythm, RRR, +S1, +S2. Absent: JVD, tachycardia - Abdomen tender (tender incision sites; active bowel sounds; ELEAZAR drainage is serous sanguinous; no significant distention) - Integumentary no rash, no growths, no abnormal pigmentation - Neurologic normal coordination, normal sensation - Musculoskeletal normal gait, normal posture - Psychiatric oriented to time, oriented to person, oriented to place, speech is normal, memory intact - Labs 07/11/18 04:00 07/11/18 04:00 Diabetes panel 07/11/18 Range/Units 04:00 Sodium 138 (133-145) mmol/L Potassium 3.7 (3.3-5.1) mmol/L Chloride 101 (96-108) mmol/L Carbon Dioxide 26 (22-30) mmol/L BUN 11 (6-20) mg/dl Creatinine 0.7 (0.7-1.2) mg/dl Glucose 99 (70-105) mg/dL Calcium 8.9 (8.6-10.4) mg/dl AST 14 (0-37) U/l ALT 16 (0-40) U/l Alkaline Phosphatase 63 (39-117) U/L Total Protein 6.4 (5.9-8.4) gm/dL Albumin 3.7 (3.2-5.2) gm/dL Triglycerides 118 (<150) mg/dl Calcium panel 07/11/18 Range/Units 04:00 Calcium 8.9 (8.6-10.4) mg/dl Phosphorus 3.1 (2.7-4.5) mg/dL Albumin 3.7 (3.2-5.2) gm/dL Pituitary panel 07/11/18 Range/Units 04:00 Sodium 138 (133-145) mmol/L Potassium 3.7 (3.3-5.1) mmol/L Chloride 101 (96-108) mmol/L Carbon Dioxide 26 (22-30) mmol/L BUN 11 (6-20) mg/dl Creatinine 0.7 (0.7-1.2) mg/dl Glucose 99 (70-105) mg/dL Calcium 8.9 (8.6-10.4) mg/dl Adrenal panel 07/11/18 Range/Units 04:00 Sodium 138 (133-145) mmol/L Potassium 3.7 (3.3-5.1) mmol/L Chloride 101 (96-108) mmol/L Carbon Dioxide 26 (22-30) mmol/L BUN 11 (6-20) mg/dl Creatinine 0.7 (0.7-1.2) mg/dl Glucose 99 (70-105) mg/dL Calcium 8.9 (8.6-10.4) mg/dl Total Bilirubin 0.9 (0.0-1.0) mg/dL AST 14 (0-37) U/l ALT 16 (0-40) U/l Alkaline Phosphatase 63 (39-117) U/L Total Protein 6.4 (5.9-8.4) gm/dL Albumin 3.7 (3.2-5.2) gm/dL Assessment and Plan (1) Status post colostomy takedown Status: Acute Assessment and plan: Patient is doing clinically well. I will continue his present treatment regimen. Stable postoperative day #3 Current Visit: Yes - Time Spent With Patient Total time spent is greater than 50% in coordination of care (as documented) at patient's floor/unit and/or counseling patient:
[2018-07-12] MEDS: 0.9 % SODIUM CHLORIDE 1,000 ML IV SCH ×4 (00:07→20:13)
[2018-07-12] MEDS: HYDROmorphone 2 MG/ML VIAL IV PRN ×9 (00:07→22:41)
[2018-07-12 05:13] LABS: Basophils # (Auto) 0 K/mcL (0.0-0.3); Basophils % (Auto) 0.3 % (0.0-2.0); Eosinophils # (Auto) 0.3 K/mcL (0.0-0.7); Eosinophils % (Auto) 2.5 % (0.0-7.0); Granulocytes % (Auto) 76.4 % (38.0-78.0); Lymphocytes # (Auto) 1.5 K/mcL (1.5-4.8); Lymphocytes % (Auto) 13.9 % (15.5-49.0); Mean Corpuscular HGB Conc 33.9 g/dL (31.0-36.0); Monocytes # (Auto) 0.7 K/mcL (0.1-0.9); Monocytes % (Auto) 6.9 % (1.0-12.0); Platelet Count 258 K/mcL (140-440); RBC 4.48 M/mcL (4.50-5.90); Red Cell Distribution Width 12.4 % (11.5-14.5)
[2018-07-12 05:30] LABS: ALT/SGPT 15 U/l (0-40); Albumin 3.4 gm/dL (3.2-5.2); Albumin/Globulin Ratio 1.1 (1.0-2.3); Alkaline Phosphatase 62 U/L (39-117); Bilirubin,Direct 0.3 mg/dL (0.0-0.3); Blood Urea Nitrogen 11 mg/dl (6-20); Gamma Glutamyl Transpeptidase 35 U/L (8-61); Uric Acid 3.9 mg/dL (2.5-8.0)
[2018-07-12] MEDS: METOCLOPRAMIDE 10 MG/2 ML VIAL IV SCH ×4 (05:53→23:26)
[2018-07-12] MEDS: 0.9 % SODIUM CHLORIDE 10 ML SYRINGE IV SCH ×3 (06:06→22:42)
[2018-07-12] MEDS: PANTOPRAZOLE 40 MG VIAL IV SCH ×2 (09:30→16:47)
[2018-07-12] MEDS: LORazepam 2 MG/ML VIAL IV PRN ×2 (09:31→14:10)
--- NOTE | 2018-07-12 13:01 | General Surgery Progress Note ---
Subjective Patient reports: feels better, pain is less, no flatus, no bowel movement, afebrile Narrative: Note initiated : 07/12/18 at 1:00 pm Service Date, if different from initiated Date: [] Patient: Se Mccoy 48 y/o M admitted on 07/09/18 for Colostomy Takedown. Chief Complaint: [patient is doing well. He still has not had any flatus or bowel movement. His pain is controlled with present medications. He denies nausea.] White blood count was 10.5; hemoglobin is unchanged. He is afebrile. Objective Temp Pulse Resp BP Pulse Ox 98.7 F 79 20 138/77 97 07/12/18 11:22 07/12/18 03:20 07/12/18 11:22 07/12/18 11:22 07/12/18 11:22 - Additional Data Intake & Output - Last 24 hours: Intake & Output 07/10/18 07/11/18 07/12/18 07/13/18 05:59 05:59 05:59 05:59 Intake Total 5327 2632 3564 1090 Output Total 1650 3215 3825 Balance 3677 -583 -261 1090 Weight 191 lb 12.8 oz 193 lb 8 oz 179 lb 6.4 oz - General physical appearance well developed, well nourished, no distress - Eyes PERRL, normal ocular movement - ENT normal pinna, normal nares, normal mucosa, no hearing loss, no congestion - Neck no masses, no bruits, trachea midline, no lymphadenopathy, no venous distension - Respiratory normal expansion, normal respiratory effort, clear to percussion, clear to au scultation - Cardiovascular Cardiovascular exam: Present: normal rate and rhythm, RRR, +S1, +S2. Absent: JVD, tachycardia - Abdomen tender (mild incisional tenderness otherwise benign abdomen; few active bowel sounds) - Integumentary no rash, no growths, no abnormal pigmentation - Neurologic normal coordination, normal sensation - Musculoskeletal normal gait, normal posture - Psychiatric oriented to time, oriented to person, oriented to place, speech is normal, memory intact - Labs 07/12/18 04:30 07/12/18 04:35 Diabetes panel 07/12/18 Range/Units 04:35 Sodium 137 (133-145) mmol/L Potassium 4.0 (3.3-5.1) mmol/L Chloride 102 (96-108) mmol/L Carbon Dioxide 26 (22-30) mmol/L BUN 11 (6-20) mg/dl Creatinine 0.8 (0.7-1.2) mg/dl Glucose 96 (70-105) mg/dL Calcium 8.9 (8.6-10.4) mg/dl AST 14 (0-37) U/l ALT 15 (0-40) U/l Alkaline Phosphatase 62 (39-117) U/L Total Protein 6.5 (5.9-8.4) gm/dL Albumin 3.4 (3.2-5.2) gm/dL Triglycerides 111 (<150) mg/dl Calcium panel 07/12/18 Range/Units 04:35 Calcium 8.9 (8.6-10.4) mg/dl Phosphorus 3.1 (2.7-4.5) mg/dL Albumin 3.4 (3.2-5.2) gm/dL Pituitary panel 07/12/18 Range/Units 04:35 Sodium 137 (133-145) mmol/L Potassium 4.0 (3.3-5.1) mmol/L Chloride 102 (96-108) mmol/L Carbon Dioxide 26 (22-30) mmol/L BUN 11 (6-20) mg/dl Creatinine 0.8 (0.7-1.2) mg/dl Glucose 96 (70-105) mg/dL Calcium 8.9 (8.6-10.4) mg/dl Adrenal panel 07/12/18 Range/Units 04:35 Sodium 137 (133-145) mmol/L Potassium 4.0 (3.3-5.1) mmol/L Chloride 102 (96-108) mmol/L Carbon Dioxide 26 (22-30) mmol/L BUN 11 (6-20) mg/dl Creatinine 0.8 (0.7-1.2) mg/dl Glucose 96 (70-105) mg/dL Calcium 8.9 (8.6-10.4) mg/dl Total Bilirubin 1.0 (0.0-1.0) mg/dL AST 14 (0-37) U/l ALT 15 (0-40) U/l Alkaline Phosphatase 62 (39-117) U/L Total Protein 6.5 (5.9-8.4) gm/dL Albumin 3.4 (3.2-5.2) gm/dL Assessment and Plan (1) Status post colostomy takedown Status: Acute Assessment and plan: Patient is doing clinically well. I will continue his present treatment regimen. Stable postoperative day #4 Current Visit: Yes - Time Spent With Patient Total time spent is greater than 50% in coordination of care (as documented) at patient's floor/unit and/or counseling patient:
[2018-07-13] MEDS: LORazepam 2 MG/ML VIAL IV PRN ×4 (01:39→21:02)
[2018-07-13] MEDS: HYDROmorphone 2 MG/ML VIAL IV PRN ×7 (03:32→21:02)
[2018-07-13] MEDS: 0.9 % SODIUM CHLORIDE 1,000 ML IV SCH ×4 (03:34→19:38)
[2018-07-13] MEDS: METOCLOPRAMIDE 10 MG/2 ML VIAL IV SCH ×4 (05:25→23:00)
[2018-07-13] MEDS: 0.9 % SODIUM CHLORIDE 10 ML SYRINGE IV SCH ×4 (05:25→20:46)
[2018-07-13] MEDS: PANTOPRAZOLE 40 MG VIAL IV SCH ×2 (06:51→16:53)
--- NOTE | 2018-07-13 16:54 | General Surgery Progress Note ---
Subjective Patient reports: feels better, pain is less, flatus, no bowel movement, afebrile Narrative: Note initiated : 07/13/18 at 4:53 pm Service Date, if different from initiated Date: [] Patient: Se Mccoy 48 y/o M admitted on 07/09/18 for Colostomy Takedown. Chief Complaint: [patient is doing well. He is afebrile. He had some flatus. He has been agitated but is improved with IV Ativan. He remains afebrile.] Objective Temp Pulse Resp BP Pulse Ox 98.2 F 95 H 18 127/80 98 07/13/18 15:17 07/13/18 15:17 07/13/18 15:17 07/13/18 15:17 07/13/18 15:17 - Additional Data Intake & Output - Last 24 hours: Intake & Output 07/11/18 07/12/18 07/13/18 07/14/18 05:59 05:59 05:59 05:59 Intake Total 2632 3564 3399 1260 Output Total 3215 3825 3275 700 Balance -583 -261 124 560 Weight 193 lb 8 oz 179 lb 6.4 oz 174 lb 14.4 oz - General physical appearance well developed, well nourished, no distress - Eyes PERRL, normal ocular movement - ENT normal pinna, normal nares, normal mucosa, no hearing loss, no congestion - Neck no masses, no bruits, trachea midline, no lymphadenopathy, no venous distension - Respiratory normal expansion, normal respiratory effort, clear to auscultation - Cardiovascular Cardiovascular exam: Present: normal rate and rhythm, RRR, +S1, +S2. Absent: JVD, tachycardia - Abdomen non tender, bowel sounds (he has good active bowel sounds), surgical scars ( incision is healing uneventfully), masses (none) - Integumentary no rash, no growths, no abnormal pigmentation - Neurologic normal coordination, normal sensation - Musculoskeletal normal gait, normal posture - Psychiatric oriented to time, oriented to person, oriented to place, speech is normal, memory intact - Labs 07/12/18 04:30 07/12/18 04:35 Assessment and Plan (1) Status post colostomy takedown Status: Acute Assessment and plan: Patient is doing clinically well. I will continue his present treatment regimen. Stable postoperative day #5 Discontinue Hull catheter Plan nasogastric tube Current Visit: Yes - Time Spent With Patient Total time spent is greater than 50% in coordination of care (as documented) at patient's floor/unit and/or counseling patient:
[2018-07-14] MEDS: 0.9 % SODIUM CHLORIDE 1,000 ML IV SCH ×4 (02:52→13:58)
[2018-07-14] MEDS: LORazepam 2 MG/ML VIAL IV PRN ×2 (02:52→08:39)
[2018-07-14] MEDS: HYDROmorphone 2 MG/ML VIAL IV PRN ×5 (02:52→21:00)
[2018-07-14] MEDS: 0.9 % SODIUM CHLORIDE 10 ML SYRINGE IV SCH ×4 (04:54→21:01)
[2018-07-14] MEDS: METOCLOPRAMIDE 10 MG/2 ML VIAL IV SCH ×4 (04:54→23:18)
[2018-07-14 05:45] LABS: Basophils # (Auto) 0.1 K/mcL (0.0-0.3); Basophils % (Auto) 0.6 % (0.0-2.0); Eosinophils # (Auto) 0.4 K/mcL (0.0-0.7); Eosinophils % (Auto) 3.9 % (0.0-7.0); Granulocytes % (Auto) 71.2 % (38.0-78.0); Lymphocytes # (Auto) 1.5 K/mcL (1.5-4.8); Lymphocytes % (Auto) 16.2 % (15.5-49.0); Mean Cell Volume 92.6 fL (80.0-100.0); Mean Corpuscular HGB Conc 34.1 g/dL (31.0-36.0); Monocytes # (Auto) 0.7 K/mcL (0.1-0.9); Monocytes % (Auto) 8.1 % (1.0-12.0); Platelet Count 289 K/mcL (140-440); RBC 4.27 M/mcL (4.50-5.90); Red Cell Distribution Width 12.3 % (11.5-14.5)
[2018-07-14 06:04] LABS: ALT/SGPT 28 U/l (0-40); Albumin 3.8 gm/dL (3.2-5.2); Albumin/Globulin Ratio 1.4 (1.0-2.3); Alkaline Phosphatase 83 U/L (39-117); Bilirubin,Direct 1.1 mg/dL (0.0-0.3); Blood Urea Nitrogen 12 mg/dl (6-20); Gamma Glutamyl Transpeptidase 113 U/L (8-61)
[2018-07-14] MEDS ORDERED: ALBUTEROL SULFATE 1 PUFF INHALER INH PRN (09:41)
[2018-07-14] MEDS: GABAPENTIN 300 MG CAPSULE PO SCH ×2 (09:42→20:59)
[2018-07-14] MEDS: FEXOFENADINE 180 MG TABLET PO SCH (09:42)
[2018-07-14] MEDS: PANTOPRAZOLE 40 MG VIAL IV SCH (09:42)
[2018-07-14] MEDS: VILAZODONE 40 MG TABLET PO SCH (11:08)
[2018-07-14] MEDS: LEVODOPA PO SCH ×3 (11:09→20:59)
[2018-07-14] MEDS: ENTACAPONE 200 MG PO SCH ×3 (11:09→20:59)
[2018-07-14] MEDS: CARBIDOPA PO SCH ×3 (11:09→20:59)
[2018-07-14] MEDS: ARMODAFINIL 200 MG PO SCH (11:09)
[2018-07-14] MEDS: VILAZODONE 20 MG PO SCH (11:09)
[2018-07-14] MEDS: MIRABEGRON 50 MG PO SCH (11:09)
[2018-07-14] MEDS: FLUTICASONE HFA 110MCG INHALER INH SCH ×3 (11:10→20:41)
[2018-07-14] MEDS: BACLOFEN 10 MG TABLET PO PRN ×3 (11:11→20:58)
[2018-07-14] MEDS: MINOCYCLINE HCL 50 MG CAPSULE PO SCH (12:54)
--- NOTE | 2018-07-14 15:24 | Operative Note ---
DATE OF OPERATION: 07/09/2018 PREOPERATIVE DIAGNOSIS: Colostomy status. POSTOPERATIVE DIAGNOSIS: Colostomy status. PROCEDURE: Colostomy takedown. SURGEON: Shanell Kumar MD DESCRIPTION OF PROCEDURE: Under general anesthesia, the patient's abdomen was prepped and draped in a sterile field. The stoma was closed with running 2-0 silk prior to completing the prep. The abdominal wall was covered with a Vi-drape. A time-out procedure was carried out as per protocol. A midline incision was made and extended through the subcutaneous tissue into the peritoneal cavity. Adhesions to the anterior abdominal wall were taken down with electrocautery. The omentum was stuck down in the pelvis. It was freed using blunt dissection and electrocautery. There were loops of small bowel. There were also adhesions in the pelvis. These were taken down using electrocautery and Metzenbaum scissors. The bowel was then packed and a Bookwalter retractor was placed. The rectal stump was dissected until it was adequately visualized and was felt to be adequate for reanastomosis. The descending colon was from the abdominal wall using contour stapler. It was then mobilized distal to the splenic flexure. Once this was done, it came easily down into the pelvis. An end-to-side anastomosis was performed between the end of the rectum and the side of the descending colon. Inner row was running locking 2-0 Monocryl. Outer row was running locking 2-0 Prolene. There was a good anastomosis with good tissue on both sides. The mesenteric defect was closed with interrupted 0 Monocryl. Irrigation was carried out. Sponge, needle, instrument and blade counts were verified as correct. The stoma end was then from the abdominal wall using electrocautery. The fascia and muscle of the stoma opening was closed in two layers using #1 Prolene. Subcutaneous tissue was closed with 2-0 Monocryl. Skin was closed with brice. Sponge, needle, instrument and blade counts were verified as correct. The fascia and peritoneum were closed with running #1 Prolene. Subcutaneous tissue was irrigated and closed with 2-0 Monocryl. Skin was closed with brice. Tegaderm dressing was placed. The patient tolerated the procedure well. He was awakened, transferred to a bed and taken to the postanesthetic care unit in stable, satisfactory condition. LCS:[facility]ren[facility] Job ID: [id number] Doc ID: [id number] Shanell Kumar M.D.
--- NOTE | 2018-07-14 16:04 | General Surgery Progress Note ---
Subjective Patient reports: feels better, pain is less, flatus, bowel movement, afebrile Narrative: Note initiated : 07/14/18 at 4:02 pm Service Date, if different from initiated Date: [] Patient: Se Mccoy 48 y/o M admitted on 07/09/18 for Colostomy Takedown. Chief Complaint: [Patient is doing well. He had bowel movement multiple episodes of flatus. He denies nausea. Nasogastric tube extends discontinued a nd he was started on clear liquids. White blood count 9.1, hemoglobin 13.5. He has been afebrile] Objective Temp Pulse Resp BP Pulse Ox 98.1 F 89 16 126/81 98 07/14/18 15:54 07/14/18 15:54 07/14/18 15:54 07/14/18 15:54 07/14/18 15:54 - Additional Data Intake & Output - Last 24 hours: Intake & Output 07/12/18 07/13/18 07/14/18 07/15/18 05:59 05:59 05:59 05:59 Intake Total 3564 3399 3095 1000 Output Total 3825 3275 1375 1195 Balance -474 869 0123 -195 Weight 179 lb 6.4 oz 174 lb 14.4 oz 174 lb 174 lb - General physical appearance well developed, well nourished, no distress - Eyes PERRL, normal ocular movement - ENT normal pinna, normal nares, normal mucosa, no hearing loss, no congestion - Neck no masses, no bruits, trachea midline, no lymphadenopathy, no venous distension - Respiratory normal expansion, normal respiratory effort, clear to auscultation - Cardiovascular Cardiovascular exam: Present: normal rate and rhythm, RRR, +S1, +S2. Absent: JVD, tachycardia - Abdomen tender (mild incisional tenderness; good active bowel sounds; ELEAZAR drainage is serosanguineous) - Integumentary no rash, no growths, no abnormal pigmentation - Neurologic normal coordination, normal sensation - Musculoskeletal normal gait, normal posture - Psychiatric oriented to time, oriented to person, oriented to place, speech is normal, memory intact - Labs 07/14/18 04:05 07/14/18 04:05 Diabetes panel 07/14/18 Range/Units 04:05 Sodium 138 (133-145) mmol/L Potassium 4.0 (3.3-5.1) mmol/L Chloride 101 (96-108) mmol/L Carbon Dioxide 28 (22-30) mmol/L BUN 12 (6-20) mg/dl Creatinine 0.7 (0.7-1.2) mg/dl Glucose 85 (70-105) mg/dL Calcium 9.0 (8.6-10.4) mg/dl AST 22 (0-37) U/l ALT 28 (0-40) U/l Alkaline Phosphatase 83 (39-117) U/L Total Protein 6.5 (5.9-8.4) gm/dL Albumin 3.8 (3.2-5.2) gm/dL Triglycerides 139 (<150) mg/dl Calcium panel 07/14/18 Range/Units 04:05 Calcium 9.0 (8.6-10.4) mg/dl Phosphorus 3.6 (2.7-4.5) mg/dL Albumin 3.8 (3.2-5.2) gm/dL Pituitary panel 07/14/18 Range/Units 04:05 Sodium 138 (133-145) mmol/L Potassium 4.0 (3.3-5.1) mmol/L Chloride 101 (96-108) mmol/L Carbon Dioxide 28 (22-30) mmol/L BUN 12 (6-20) mg/dl Creatinine 0.7 (0.7-1.2) mg/dl Glucose 85 (70-105) mg/dL Calcium 9.0 (8.6-10.4) mg/dl Adrenal panel 07/14/18 Range/Units 04:05 Sodium 138 (133-145) mmol/L Potassium 4.0 (3.3-5.1) mmol/L Chloride 101 (96-108) mmol/L Carbon Dioxide 28 (22-30) mmol/L BUN 12 (6-20) mg/dl Creatinine 0.7 (0.7-1.2) mg/dl Glucose 85 (70-105) mg/dL Calcium 9.0 (8.6-10.4) mg/dl Total Bilirubin 2.0 H (0.0-1.0) mg/dL AST 22 (0-37) U/l ALT 28 (0-40) U/l Alkaline Phosphatase 83 (39-117) U/L Total Protein 6.5 (5.9-8.4) gm/dL Albumin 3.8 (3.2-5.2) gm/dL Assessment and Plan (1) Status post colostomy takedown Status: Acute Assessment and plan: Patient is doing clinically well. I will continue his present treatment regimen. Stable postoperative day #6 Discontinue Hull catheter Clear liquid diet Current Visit: Yes - Time Spent With Patient Total time spent is greater than 50% in coordination of care (as documented) at patient's floor/unit and/or counseling patient:
[2018-07-14] MEDS: LORazepam 1 MG TABLET PO PRN ×3 (16:22→23:18)
[2018-07-15] MEDS: HYDROmorphone 2 MG/ML VIAL IV PRN ×3 (01:35→12:18)
[2018-07-15] MEDS: METOCLOPRAMIDE 10 MG/2 ML VIAL IV SCH ×2 (04:59→13:55)
[2018-07-15] MEDS: 0.9 % SODIUM CHLORIDE 10 ML SYRINGE IV SCH ×3 (04:59→20:37)
[2018-07-15 05:38] LABS: Basophils # (Auto) 0 K/mcL (0.0-0.3); Basophils % (Auto) 0.5 % (0.0-2.0); Eosinophils # (Auto) 0.5 K/mcL (0.0-0.7); Granulocytes % (Auto) 62.3 % (38.0-78.0); Lymphocytes # (Auto) 2.4 K/mcL (1.5-4.8); Lymphocytes % (Auto) 25.1 % (15.5-49.0); Mean Cell Volume 91.8 fL (80.0-100.0); Mean Corpuscular HGB Conc 33.9 g/dL (31.0-36.0); Monocytes # (Auto) 0.7 K/mcL (0.1-0.9); Monocytes % (Auto) 7.1 % (1.0-12.0); Platelet Count 326 K/mcL (140-440); RBC 4.49 M/mcL (4.50-5.90); Red Cell Distribution Width 12.4 % (11.5-14.5)
[2018-07-15 06:13] LABS: ALT/SGPT 19 U/l (0-40); Albumin/Globulin Ratio 1.3 (1.0-2.3); Alkaline Phosphatase 106 U/L (39-117); Bilirubin,Direct 0.4 mg/dL (0.0-0.3); Blood Urea Nitrogen 8 mg/dl (6-20); Gamma Glutamyl Transpeptidase 142 U/L (8-61)
[2018-07-15] MEDS ORDERED: PANTOPRAZOLE 40 MG TABLET PO SCH (07:30)
[2018-07-15] MEDS: LEVODOPA PO SCH ×3 (08:05→20:40)
[2018-07-15] MEDS: FEXOFENADINE 180 MG TABLET PO SCH (08:05)
[2018-07-15] MEDS: ARMODAFINIL 200 MG PO SCH (08:05)
[2018-07-15] MEDS: GABAPENTIN 300 MG CAPSULE PO SCH ×2 (08:05→20:36)
[2018-07-15] MEDS: ENTACAPONE 200 MG PO SCH ×3 (08:05→20:40)
[2018-07-15] MEDS: CARBIDOPA PO SCH ×3 (08:05→20:40)
[2018-07-15] MEDS: BACLOFEN 10 MG TABLET PO PRN ×3 (08:05→20:36)
[2018-07-15] MEDS: VILAZODONE 40 MG TABLET PO SCH (08:05)
[2018-07-15] MEDS: VILAZODONE 20 MG PO SCH (08:06)
[2018-07-15] MEDS: MIRABEGRON 50 MG PO SCH (08:06)
[2018-07-15] MEDS: MINOCYCLINE HCL 50 MG CAPSULE PO SCH (08:06)
[2018-07-15] MEDS: LORazepam 1 MG TABLET PO PRN ×3 (08:19→20:45)
[2018-07-15] MEDS: FLUTICASONE HFA 110MCG INHALER INH SCH ×2 (12:17→19:21)
--- NOTE | 2018-07-15 12:55 | General Surgery Progress Note ---
Subjective Patient reports: feels better, pain is less, tolerating liquids well, flatus, bowel movement, afebrile Narrative: Note initiated : 07/15/18 at 12:53 pm Service Date, if different from initiated Date: [] Patient: Se Mccoy 48 y/o M admitted on 07/09/18 for Colostomy Takedown. Chief Complaint: patient continues to progress well. He has had flatus and multiple bowel movements. He tolerated liquid diet without difficulty. White blood count 9.5 hemoglobin 14. Inpatient panel is totally normal.[] Objective Temp Pulse Resp BP Pulse Ox 98.6 F 92 H 16 135/82 98 07/15/18 12:00 07/15/18 12:00 07/15/18 12:00 07/15/18 12:00 07/15/18 12:00 - Additional Data Intake & Output - Last 24 hours: Intake & Output 07/13/18 07/14/18 07/15/18 07/16/18 05:59 05:59 05:59 05:59 Intake Total 3399 3095 2680 Output Total 3275 1375 1950 Balance 124 1720 730 Weight 174 lb 14.4 oz 174 lb 173 lb - General physical appearance well developed, well nourished, no distress - Eyes PERRL, normal ocular movement - ENT normal pinna, normal nares, normal mucosa, no hearing loss, no congestion - Neck no masses, no bruits, trachea midline, no lymphadenopathy, no venous distension - Respiratory normal expansion, normal respiratory effort, clear to auscultation - Cardiovascular Cardiovascular exam: Present: normal rate and rhythm, RRR, +S1, +S2. Absent: JVD, tachycardia - Abdomen tender (mild tenderness of the incisions but otherwise benign abdomen; good active bowel sounds), bowel sounds (present), surgical scars (none), masses (none) - Integumentary no rash, no growths, no abnormal pigmentation - Neurologic normal coordination, normal sensation - Musculoskeletal normal gait, normal posture - Psychiatric oriented to time - Labs 07/15/18 04:42 07/15/18 04:42 Diabetes panel 07/15/18 Range/Units 04:42 Sodium 139 (133-145) mmol/L Potassium 4.0 (3.3-5.1) mmol/L Chloride 102 (96-108) mmol/L Carbon Dioxide 26 (22-30) mmol/L BUN 8 (6-20) mg/dl Creatinine 0.8 (0.7-1.2) mg/dl Glucose 97 (70-105) mg/dL Calcium 9.4 (8.6-10.4) mg/dl AST 38 H (0-37) U/l ALT 19 (0-40) U/l Alkaline Phosphatase 106 (39-117) U/L Total Protein 7.1 (5.9-8.4) gm/dL Albumin 4.0 (3.2-5.2) gm/dL Triglycerides 135 (<150) mg/dl Calcium panel 07/15/18 Range/Units 04:42 Calcium 9.4 (8.6-10.4) mg/dl Phosphorus 4.0 (2.7-4.5) mg/dL Albumin 4.0 (3.2-5.2) gm/dL Pituitary panel 07/15/18 Range/Units 04:42 Sodium 139 (133-145) mmol/L Potassium 4.0 (3.3-5.1) mmol/L Chloride 102 (96-108) mmol/L Carbon Dioxide 26 (22-30) mmol/L BUN 8 (6-20) mg/dl Creatinine 0.8 (0.7-1.2) mg/dl Glucose 97 (70-105) mg/dL Calcium 9.4 (8.6-10.4) mg/dl Adrenal panel 07/15/18 Range/Units 04:42 Sodium 139 (133-145) mmol/L Potassium 4.0 (3.3-5.1) mmol/L Chloride 102 (96-108) mmol/L Carbon Dioxide 26 (22-30) mmol/L BUN 8 (6-20) mg/dl Creatinine 0.8 (0.7-1.2) mg/dl Glucose 97 (70-105) mg/dL Calcium 9.4 (8.6-10.4) mg/dl Total Bilirubin 1.1 H (0.0-1.0) mg/dL AST 38 H (0-37) U/l ALT 19 (0-40) U/l Alkaline Phosphatase 106 (39-117) U/L Total Protein 7.1 (5.9-8.4) gm/dL Albumin 4.0 (3.2-5.2) gm/dL Assessment and Plan (1) Status post colostomy takedown Status: Acute Assessment and plan: Patient is doing clinically well. . Stable postoperative day #7 Discontinue Hull catheter regular diet Switch to oral medications Current Visit: Yes - Time Spent With Patient Total time spent is greater than 50% in coordination of care (as documented) at patient's floor/unit and/or counseling patient:
[2018-07-15] MEDS: METOCLOPRAMIDE 10 MG TABLET PO SCH ×3 (14:25→20:36)
[2018-07-15] MEDS: oxyCODONE HCL 5 MG TABLET PO PRN ×2 (17:08→21:59)
[2018-07-16] MEDS: LORazepam 1 MG TABLET PO PRN ×3 (01:32→14:02)
[2018-07-16] MEDS: 0.9 % SODIUM CHLORIDE 10 ML SYRINGE IV SCH ×2 (04:12→13:31)
[2018-07-16 06:26] LABS: Basophils # (Auto) 0.1 K/mcL (0.0-0.3); Basophils % (Auto) 0.8 % (0.0-2.0); Eosinophils # (Auto) 0.4 K/mcL (0.0-0.7); Eosinophils % (Auto) 5.6 % (0.0-7.0); Granulocytes % (Auto) 55.3 % (38.0-78.0); Lymphocytes # (Auto) 2.1 K/mcL (1.5-4.8); Lymphocytes % (Auto) 29.4 % (15.5-49.0); Mean Cell Volume 92.9 fL (80.0-100.0); Mean Corpuscular HGB Conc 33.1 g/dL (31.0-36.0); Monocytes # (Auto) 0.6 K/mcL (0.1-0.9); Monocytes % (Auto) 8.9 % (1.0-12.0); Platelet Count 315 K/mcL (140-440); RBC 4.37 M/mcL (4.50-5.90); Red Cell Distribution Width 12.4 % (11.5-14.5)
[2018-07-16 07:13] LABS: ALT/SGPT 25 U/l (0-40); Albumin/Globulin Ratio 1.3 (1.0-2.3); Alkaline Phosphatase 92 U/L (39-117); Bilirubin,Direct 0.2 mg/dL (0.0-0.3); Blood Urea Nitrogen 6 mg/dl (6-20); Gamma Glutamyl Transpeptidase 107 U/L (8-61); Uric Acid 4.7 mg/dL (2.5-8.0)
[2018-07-16] MEDS: METOCLOPRAMIDE 10 MG TABLET PO SCH ×2 (08:31→12:06)
[2018-07-16] MEDS: GABAPENTIN 300 MG CAPSULE PO SCH (08:32)
[2018-07-16] MEDS: FEXOFENADINE 180 MG TABLET PO SCH (08:33)
[2018-07-16] MEDS: BACLOFEN 10 MG TABLET PO PRN ×2 (08:34→15:24)
[2018-07-16] MEDS: CARBIDOPA PO SCH ×2 (08:38→15:19)
[2018-07-16] MEDS: ENTACAPONE 200 MG PO SCH ×2 (08:38→15:19)
[2018-07-16] MEDS: LEVODOPA PO SCH ×2 (08:38→15:19)
[2018-07-16] MEDS: MINOCYCLINE HCL 50 MG CAPSULE PO SCH (08:38)
[2018-07-16] MEDS: ARMODAFINIL 200 MG PO SCH (08:39)
[2018-07-16] MEDS: VILAZODONE 40 MG TABLET PO SCH (08:41)
[2018-07-16] MEDS: VILAZODONE 20 MG PO SCH (08:42)
[2018-07-16] MEDS: MIRABEGRON 50 MG PO SCH (08:43)
[2018-07-16] MEDS: FLUTICASONE HFA 110MCG INHALER INH SCH (08:45)
[2018-07-16] MEDS: oxyCODONE HCL 5 MG TABLET PO PRN (12:10)
[2018-07-16] MEDS ORDERED: MEPERIDINE 50 MG TABLET PO PRN (14:57)
--- NOTE | 2018-07-16 15:16 | Discharge Summary ---
Providers - Providers Patient information: Note initiated : 07/16/18 at 3:13 pm Service Date, if different from initiated Date: [] Patient: Se Mccoy 48 y/o M admitted on 07/09/18 for Colostomy Takedown. Chief Complaint: [] Date of admission: 07/09/18 Discharge date: 07/16/18 Attending physician: Shanell Kumar Hospitalization Hospital course: 48-year-old male who was admitted on July 08 after undergoing colostomy closure. Surgery progressed uneventfully. He had an uneventful postoperative course and was passing flatus by the third postop day. His diet was advanced without difficulty. Presently he is on regular diet and is having regular bowel movements and flatus. His pain is controlled. Patient is stable for discharge home Discharge diagnosis: colostomy status Reason for admission: postoperative status Procedures: Colostomy takedown Pertinent studies/significant findings: None Complications: None Exam Temp Pulse Resp BP Pulse Ox 98.1 F 85 16 121/74 97 07/16/18 11:58 07/16/18 11:58 07/16/18 11:58 07/16/18 11:58 07/16/18 11:58 - General physical appearance well developed, well nourished, no distress - Eyes PERRL, normal ocular movement - ENT normal pinna, normal nares, normal mucosa, no hearing loss, no congestion - Head Head exam IM: Present: atraumatic, normocephalic - Neck no masses, no bruits, trachea midline, no lymphadenopathy, no venous distension - Cardiovascular Cardiovascular exam IM: Present: normal rate and rhythm - Respiratory normal expansion, normal respiratory effort, clear to percussion, clear to auscultation - Abdomen Abdomen: Present: soft, tender (mild incisional tenderness; good active bowel sounds; no distention noted), bowel sounds Hernia: Present: none - Genitourinary Present: normal penis with no external lesions - Integumentary Present: no rash, no growths, no abnormal pigmentation - Neurologic Present: normal coordination, normal sensation - Musculoskeletal Present: normal gait, normal posture - Psychiatric Present: oriented to time, oriented to person, oriented to place, speech is normal, memory intact Discharge Plan - Patient/Caregiver Discharge Instructions Activity: increase activity as tolerated, resume usual activities as tolerated Diet: Regular Diet Prescriptions: Meperidine [Demerol] 50 mg PO Q4HP PRN #42 tab PRN Reason: Pain Level 3-6 - Follow up Plan Follow up with: Shanell Kumar MD [Physician] - 07/24/18 2:00 pm Disposition: Home, Self-Care Prognosis: Good Rehab Potential: Good I certify that the patient requires SNF services.: No Overall status at discharge: patient is progressing back to baseline Pending Studies Resuscitation Status Full Code Diet Regular Diet Start SatJul 15 1246 Albuterol Sulfate (Ventolin) 2 puff INH Q6-8HP PRN PRN Reason: Shortness Of Breath Last Admin: 07/16/18 08:45 Dose: 2 puff Documented by: [email or web address] Baclofen (Lioresal) 20 mg PO TIDP PRN PRN Reason: Muscle Spasticity Last Admin: 07/16/18 08:34 Dose: 20 mg Documented by: [email or web address] Admin: 07/15/18 20:36 Dose: 20 mg Documented by: Admin: 07/15/18 15:28 Dose: 20 mg Documented by: [email or web address] Admin: 07/15/18 08:05 Dose: 20 mg Documented by: [email or web address] Admin: 07/14/18 20:58 Dose: 20 mg Documented by: Admin: 07/14/18 16:21 Dose: 20 mg Documented by: [email or web address] Admin: 07/14/18 11:11 Dose: 20 mg Documented by: [email or web address] Fexofenadine HCl (Koki) 180 mg PO DAILY [facility] Last Admin: 07/16/18 08:33 Dose: 180 mg Documented by: [email or web address] Admin: 07/15/18 08:05 Dose: 180 mg Documented by: [email or web address] Admin: 07/14/18 09:42 Dose: 180 mg Documented by: [email or web address] Fluticasone Propionate (Flovent Hfa 110mcg) 2 puff INH BID [facility] Last Admin: 07/16/18 08:45 Dose: 2 puff Documented by: [email or web address] Admin: 07/15/18 19:21 Dose: Not Given Documented by: Admin: 07/15/18 12:17 Dose: Not Given Documented by: [email or web address] Admin: 07/14/18 20:41 Dose: Not Given Documented by: Admin: 07/14/18 11:24 Dose: Not Given Documented by: [email or web address] Gabapentin (Neurontin) 300 mg PO BID [facility] Last Admin: 07/16/18 08:32 Dose: 300 mg Documented by: [email or web address] Admin: 07/15/18 20:36 Dose: 300 mg Documented by: Admin: 07/15/18 08:05 Dose: 300 mg Documented by: [email or web address] Admin: 07/14/18 20:59 Dose: 300 mg Documented by: Admin: 07/14/18 09:42 Dose: 300 mg Documented by: [email or web address] Hydromorphone HCl (Dilaudid) 0.5 - 1 mg IV Q2HP PRN PRN Reason: PAIN LEVEL > 6 Last Admin: 07/15/18 12:18 Dose: 1 mg Documented by: [email or web address] Admin: 07/15/18 08:06 Dose: 0.5 mg Documented by: [email or web address] Admin: 07/15/18 01:35 Dose: 1 mg Documented by: Admin: 07/14/18 21:00 Dose: 1 mg Documented by: Admin: 07/14/18 17:57 Dose: 0.5 mg Documented by: [email or web address] Lorazepam (Ativan) 1 mg PO TIDP PRN PRN Reason: ANXIETY/SEDATION Last Admin: 07/16/18 14:02 Dose: 1 mg Documented by: Admin: 07/16/18 08:34 Dose: 1 mg Documented by: [email or web address] Admin: 07/16/18 01:32 Dose: 1 mg Documented by: Admin: 07/15/18 20:45 Dose: 1 mg Documented by: Admin: 07/15/18 12:17 Dose: 1 mg Documented by: [email or web address] Admin: 07/15/18 08:19 Dose: 1 mg Documented by: [email or web address] Admin: 07/14/18 23:18 Dose: 1 mg Documented by: Admin: 07/14/18 17:58 Dose: 1 mg Documented by: [email or web address] Admin: 07/14/18 16:22 Dose: 1 mg Documented by: [email or web address] Metoclopramide HCl (Reglan) 10 mg PO ACHS [facility] Last Admin: 07/16/18 12:06 Dose: 10 mg Documented by: [email or web address] Admin: 07/16/18 08:31 Dose: 10 mg Documented by: [email or web address] Admin: 07/15/18 20:36 Dose: 10 mg Documented by: Admin: 07/15/18 17:01 Dose: 10 mg Documented by: [email or web address] Admin: 07/15/18 14:25 Dose: 10 mg Documented by: [email or web address] Minocycline HCl (Minocycline Hcl) 50 mg PO DAILY [facility] Last Admin: 07/16/18 08:38 Dose: Not Given Documented by: [email or web address] Admin: 07/15/18 08:06 Dose: 50 mg Documented by: [email or web address] Admin: 07/14/18 12:54 Dose: 50 mg Documented by: [email or web address] Ondansetron HCl (Zofran) 4 mg IV Q4HP PRN PRN Reason: Nausea And Vomiting Last Admin: 07/13/18 19:00 Dose: 4 mg Documented by: [email or web address] Oxycodone HCl (Roxicodone) 10 mg PO Q4HP PRN PRN Reason: PAIN LEVEL 3-6 Last Admin: 07/16/18 12:10 Dose: 10 mg Documented by: [email or web address] Admin: 07/15/18 21:59 Dose: 10 mg Documented by: Admin: 07/15/18 17:08 Dose: 10 mg Documented by: [email or web address] Armodafinil (Nuvigil () 200 Mg Tablet) 1 dose PO DAILY [facility] Last Admin: 07/16/18 08:39 Dose: 1 dose Documented by: [email or web address] Admin: 07/15/18 08:05 Dose: 1 dose Documented by: [email or web address] Admin: 07/14/18 11:09 Dose: 1 dose Documented by: [email or web address] Carbidopa 37.5mg - Levodopa 150 Mg - Entacapone 200 Mg Tablet 1 dose PO TID [facility] Last Admin: 07/16/18 08:38 Dose: 1 dose Documented by: [email or web address] Admin: 07/15/18 20:40 Dose: 1 dose Documented by: Admin: 07/15/18 15:28 Dose: 1 dose Documented by: [email or web address] Admin: 07/15/18 08:05 Dose: 1 dose Documented by: [email or web address] Admin: 07/14/18 20:59 Dose: 1 dose Documented by: Admin: 07/14/18 16:19 Dose: 1 dose Documented by: [email or web address] Admin: 07/14/18 11:09 Dose: 1 dose Documented by: [email or web address] Mirabegron Er 50 Mg (Tablet) 1 dose PO DAILY [facility] Last Admin: 07/16/18 08:43 Dose: 1 dose Documented by: [email or web address] Admin: 07/15/18 08:06 Dose: 1 dose Documented by: [email or web address] Admin: 07/14/18 11:09 Dose: 1 dose Documented by: [email or web address] Vilazodone 20 Mg (Tablet) 1 dose PO DAILY [facility] Last Admin: 07/16/18 08:42 Dose: 1 dose Documented by: [email or web address] Admin: 07/15/18 08:06 Dose: 1 dose Documented by: [email or web address] Admin: 07/14/18 11:09 Dose: 1 dose Documented by: [email or web address] Vilazodone 40 Mg (Tablet) 1 dose PO DAILY [facility] Admin: 07/16/18 08:41 Dose: 1 dose Documented by: [email or web address] Admin: 07/15/18 08:05 Dose: 1 dose Documented by: [email or web address] Admin: 07/14/18 11:08 Dose: 1 dose Documented by: [email or web address] Sodium Chloride (Saline Flush) 10 ml IV Q8 [facility] Admin: 07/16/18 13:31 Dose: Not Given Documented by: [email or web address] Admin: 07/16/18 04:12 Dose: Not Given Documented by: Admin: 07/15/18 20:37 Dose: 10 ml Documented by: Admin: 07/15/18 15:29 Dose: 10 ml Documented by: [email or web address] Admin: 07/15/18 04:59 Dose: 10 ml Documented by: Admin: 07/14/18 21:01 Dose: 10 ml Documented by: Admin: 07/14/18 16:19 Dose: 10 ml Documented by: [email or web address] Admin: 07/14/18 15:50 Dose: 10 ml Documented by: [email or web address] Admin: 07/14/18 04:54 Dose: 10 ml Documented by: Admin: 07/13/18 20:46 Dose: Not Given Documented by: Admin: 07/13/18 19:05 Dose: 10 ml Documented by: Admin: 07/13/18 14:52 Dose: 10 ml Documented by: Admin: 07/13/18 05:25 Dose: 10 ml Documented by: [email or web address] Admin: 07/12/18 22:42 Dose: 10 ml Documented by: [email or web address] Admin: 07/12/18 13:32 Dose: 10 ml Documented by: Admin: 07/12/18 06:06 Dose: 10 ml Documented by: Admin: 07/11/18 21:57 Dose: 10 ml Documented by: Admin: 07/11/18 13:16 Dose: Not Given Documented by: Admin: 07/11/18 05:55 Dose: 10 ml Documented by: [email or web address] Admin: 07/10/18 21:41 Dose: 10 ml Documented by: Admin: 07/10/18 14:16 Dose: Not Given Documented by: Admin: 07/10/18 05:25 Dose: Not Given Documented by: Admin: 07/09/18 20:01 Dose: Not Given Documented by: Admin: 07/09/18 13:54 Dose: Not Given Documented by: [email or web address] Shift Summary 07/16/18 01:23 Shift Summary by Nadia Ruffin AOx4. VSS on RA. Up ad zina in room. Ambulated hallway independently with 4WW. Mucous BMx1 reported overnight. Voiding without issue. PIV R arm SL. Tolerating regular diet. Denies nausea. Continue scheduled reglan. Midline incision with brice covered with tegaderm CDI + colostomy closure site to left ABD. ELEAZAR R ABD covered with gauze. c/o 8/10 ABD pain. PRN oxycodone x1 + PRN ativan x1. Patient reports relief with medication. IS bedside. Initialized on 07/16/18 01:23 - END OF NOTE
== END 2018-07-16 16:50 | disposition home or self-care (01) | DRG 331 ==
LOC: MEDSUR 05:33
PROVIDERS: ADMIT Family Medicine Adult Medicine; ATTEND Family Medicine Adult Medicine

== ENCOUNTER 2019-07-17 04:51 | Inpatient (IN) ==
--- NOTE | 2019-07-14 11:42 | XRay Report ---
CLINICAL INFORMATION: PRE SURGERY COMPARISON: 08/08/2018 FINDINGS: Lung volumes are hyperexpanded suggesting chronic bronchitis or asthma. No change. No infiltrates. Heart size, mediastinum and pulmonary vessels are normal. Bones and soft tissues are unremarkable. IMPRESSION: Findings suggestive of chronic bronchitis or asthma. Stable. No acute disease Interpreted and Authenticated by: Jose John 07/14/19
[2019-07-14 12:51] LABS: Basophils # (Auto) 0.06 K/mcL (0.00-0.30); Basophils % (Auto) 0.8 % (0.0-2.0); Eosinophils # (Auto) 0.12 K/mcL (0.00-0.70); Eosinophils % (Auto) 1.6 % (0.0-7.0); Granulocytes % (Auto) 58.5 % (38.0-78.0); Hematocrit 42.1 % (40.1-51.0); Hemoglobin 14.5 g/dL (13.7-17.5); Lymphocytes # (Auto) 2.53 K/mcL (1.50-4.80); Lymphocytes % (Auto) 33.1 % (15.5-49.0); Mean Cell Volume 91.1 fL (80.0-100.0); Mean Corpuscular HGB Conc 34.4 g/dL (31.0-36.0); Mean Platelet Volume 10.2 fL (7.4-10.4); Monocytes # (Auto) 0.46 K/mcL (0.10-0.90); Platelet Count 284 K/mcL (140-440); RBC 4.62 M/mcL (4.63-6.08); Red Cell Distribution Width 12.3 % (11.5-14.5); WBC 7.6 K/mcL (4.50-11.00)
[2019-07-14 13:28] LABS: ALT/SGPT 9 U/l (0-40); AST/SGOT 19 U/l (0-37); Albumin 4.6 gm/dL (3.2-5.2); Albumin/Globulin Ratio 1.6 (1.0-2.3); Alkaline Phosphatase 77 U/L (39-117); Bilirubin,Total 0.2 mg/dL (0.0-1.0); Blood Urea Nitrogen 7 mg/dl (6-20); Calcium 9.5 mg/dl (8.6-10.4); Carbon Dioxide 27 mmol/L (22-30); Chloride 103 mmol/L (96-108); Globulin 2.9 gm/dL (2.2-3.7); Glomerular Filtration Rate 101; Glucose 109 mg/dL (70-105)
[2019-07-14 13:36] LABS: Prothrombin Time 13.6 sec (11.9-14.5)
[2019-07-17] MEDS ORDERED: IPRATROPIUM/ALBUTEROL 3 ML AMPUL.NEB NEB PRN ×2 (05:00→09:50)
[2019-07-17] MEDS ORDERED: SCOPOLAMINE 1 PATCH PATCH TOPICAL PRN (05:00)
[2019-07-17] MEDS ORDERED: LEVOFLOXACIN 750 MG/150 ML BAG IV SCH ×2 (06:00→10:51)
[2019-07-17] MEDS ORDERED: VANCOMYCIN 1,000 MG in 0.9 % SODIUM CHLORIDE 250 ML IV SCH ×2 (06:00→10:51)
[2019-07-17] MEDS ORDERED: KETAMINE 100 MG/ML ML IV ONE (07:30)
[2019-07-17] MEDS ORDERED: diphenhydrAMINE 50 MG/ML VIAL IV ONE (07:30)
[2019-07-17] MEDS ORDERED: GLYCOPYRROLATE 0.2 MG/ML VIAL IV ONE (07:30)
[2019-07-17] MEDS ORDERED: DEXAMETHASONE 10 MG/ML VIAL IV ONE (07:30)
[2019-07-17] MEDS ORDERED: ONDANSETRON 4 MG/2 ML VIAL IV ONE (07:30)
[2019-07-17] MEDS ORDERED: LIDOCAINE HCL/PF 100 MG/5 ML SYRINGE IV ONE (07:30)
[2019-07-17] MEDS ORDERED: ROPIVACAINE HCL/PF 30 ML VIAL IJ ONE (07:30)
[2019-07-17] MEDS ORDERED: MIDAZOLAM 2 MG/2 ML VIAL IV ONE (07:30)
[2019-07-17] MEDS ORDERED: PROPOFOL 200 MG/20 ML VIAL IV ONE (07:30)
[2019-07-17] MEDS ORDERED: fentaNYL 250 MCG/5 ML VIAL IV ONE (07:30)
[2019-07-17] MEDS ORDERED: BACITRACIN 50,000 UNIT VIAL IR ONE (08:13)
--- NOTE | 2019-07-17 09:36 | Brief Operative Note ---
Date of procedure: 07/17/19 Pre-op diagnosis: incisional hernia Post-op diagnosis: other (incisional hernia) Procedure: incisional hernia repair with mesh and bilateral separation of components Grafts/Implants: Yes (surgimesh 15cm x22cm) Anesthesia: GETA Findings: near complete herniation of entire midline incision Complications: none Surgeon: Shanell Kumar Estimated blood loss (cc): 25 Specimens Removed/Pathology: none sent Condition: stable Disposition: PACU
[2019-07-17] MEDS ORDERED: fentaNYL 100 MCG/2 ML VIAL IV PRN (09:50)
[2019-07-17] MEDS ORDERED: MEPERIDINE 25 MG/ML SYRINGE IV PRN (09:50)
[2019-07-17] MEDS ORDERED: KETOROLAC 30 MG/ML VIAL IV PRN (09:50)
[2019-07-17] MEDS ORDERED: ONDANSETRON 4 MG/2 ML VIAL IV PRN ×2 (09:50→10:51)
[2019-07-17] MEDS ORDERED: ACETAMINOPHEN 1,000 MG/100 ML BOTTLE IV ONE (09:50)
[2019-07-17] MEDS ORDERED: HYDROmorphone 2 MG/ML VIAL IV PRN (09:50)
[2019-07-17] MEDS ORDERED: LACTATED RINGERS 1,000 ML IV SCH (10:00)
[2019-07-17] MEDS ORDERED: oxyCODONE HCL 5 MG TABLET PO PRN (10:51)
[2019-07-17] MEDS ORDERED: ACETAMINOPHEN 1,000 MG in PREMIX 1 BAG IV SCH (10:51)
[2019-07-17] MEDS ORDERED: PROMETHAZINE 25 MG/ML VIAL IV PRN (10:51)
[2019-07-17] MEDS: LACTATED RINGERS 1,000 ML IV SCH (11:11)
[2019-07-17] MEDS: HYDROmorphone 2 MG/ML VIAL IV PRN ×3 (12:25→23:18)
[2019-07-17] MEDS: 0.9 % SODIUM CHLORIDE 10 ML SYRINGE IV SCH ×2 (14:00→22:24)
[2019-07-17] MEDS: ACETAMINOPHEN 1,000 MG/100 ML BOTTLE IV SCH ×2 (16:09→22:44)
[2019-07-17] MEDS: PANTOPRAZOLE 40 MG TABLET PO SCH (16:14)
[2019-07-18] MEDS: LACTATED RINGERS 1,000 ML IV SCH ×2 (01:48→11:55)
[2019-07-18] MEDS: HYDROmorphone 2 MG/ML VIAL IV PRN ×7 (01:48→20:47)
[2019-07-18] MEDS: ACETAMINOPHEN 1,000 MG/100 ML BOTTLE IV SCH (04:05)
[2019-07-18] MEDS: 0.9 % SODIUM CHLORIDE 10 ML SYRINGE IV SCH ×3 (05:03→20:34)
[2019-07-18 06:47] LABS: Basophils # (Auto) 0.04 K/mcL (0.00-0.30); Basophils % (Auto) 0.2 % (0.0-2.0); Eosinophils # (Auto) 0.02 K/mcL (0.00-0.70); Eosinophils % (Auto) 0.1 % (0.0-7.0); Granulocytes % (Auto) 70.5 % (38.0-78.0); Hematocrit 39.3 % (40.1-51.0); Hemoglobin 13.5 g/dL (13.7-17.5); Lymphocytes % (Auto) 22.4 % (15.5-49.0); Mean Cell Volume 91.8 fL (80.0-100.0); Mean Corpuscular HGB Conc 34.4 g/dL (31.0-36.0); Mean Platelet Volume 10.7 fL (7.4-10.4); Monocytes % (Auto) 6.8 % (1.0-12.0); Platelet Count 257 K/mcL (140-440); RBC 4.28 M/mcL (4.63-6.08); Red Cell Distribution Width 12.2 % (11.5-14.5); WBC 16.1 K/mcL (4.50-11.00)
[2019-07-18] MEDS: PANTOPRAZOLE 40 MG TABLET PO SCH ×2 (07:30→17:48)
[2019-07-18] MEDS: LORazepam 2 MG/ML VIAL IV PRN (07:42)
[2019-07-18] MEDS ORDERED: FLUTICASONE HFA 110MCG INHALER INH PRN (10:16)
[2019-07-18] MEDS ORDERED: ALBUTEROL SULFATE 1 PUFF INHALER INH PRN (10:16)
--- NOTE | 2019-07-18 11:39 | General Surgery Progress Note ---
Subjective Patient reports: still having pain, no flatus, no bowel movement, afebrile Narrative: Note initiated : 07/18/19 at 11:36 am Service Date, if different from initiated Date: [] Patient: Se Mccoy 49 y/o M admitted on 07/17/19 for Incisional Hernia Repair. Chief Complaint: [patient is clinically stable. He has had flatus but denies nausea. He can planes of uncontrolled pain. White blood count 16.1, hemoglobin 13.5, hematocrit 39.3.] Objective Temp Pulse Resp BP Pulse Ox 98.0 F 82 20 134/85 94 07/18/19 08:00 07/18/19 08:00 07/18/19 08:00 07/18/19 08:00 07/18/19 08:00 - Additional Data Intake & Output - Last 24 hours: Intake & Output 07/16/19 07/17/19 07/18/19 07/19/19 05:59 05:59 05:59 05:59 Intake Total 1700 Output Total 3245 550 Balance -1545 -550 Weight 187 lb 8 oz 188 lb 188 lb - General physical appearance well developed, well nourished, moderate distress, moderate pain - Eyes PERRL, normal ocular movement - ENT normal pinna, normal nares, normal mucosa, no hearing loss, no congestion - Neck no masses, no bruits, trachea midline, no lymphadenopathy, no venous distension - Respiratory normal expansion, normal respiratory effort, clear to auscultation - Cardiovascular Cardiovascular exam: Present: normal rate and rhythm, RRR, +S1, +S2. Absent: JVD, tachycardia - Abdomen tender (moderate tenderness of incision and the entire abdominal wall) - Integumentary no rash, no growths, no abnormal pigmentation - Neurologic normal coordination, normal sensation - Musculoskeletal normal gait, normal posture - Psychiatric oriented to time, oriented to person, oriented to place, speech is normal, memory intact - Labs 07/18/19 05:17 07/14/19 10:41 Assessment and Plan (1) Incisional hernia of anterior abdominal wall without obstruction or gangrene Status: Acute Assessment and plan: Continue present therapy Current Visit: Yes (2) Parkinson's disease Problem details: with profound fatigue and lethargy, requiring stimulants for control Status: Chronic Current Visit: No - Time Spent With Patient Total time spent is greater than 50% in coordination of care (as documented) at patient's floor/unit and/or counseling patient:
[2019-07-18] MEDS: BACLOFEN 10 MG TABLET PO PRN ×2 (12:32→20:47)
[2019-07-18] MEDS: ALPRAZolam 0.5 MG TABLET PO PRN (12:32)
[2019-07-18] MEDS ORDERED: GABAPENTIN 300 MG CAPSULE PO ONE (13:00)
[2019-07-18] MEDS: LEVODOPA PO SCH ×2 (15:14→20:34)
[2019-07-18] MEDS: CARBIDOPA PO SCH ×2 (15:14→20:34)
[2019-07-18] MEDS: ENTACAPONE 200 MG PO SCH ×2 (15:14→20:34)
[2019-07-18] MEDS: MONTELUKAST 10 MG TABLET PO SCH (20:34)
[2019-07-18] MEDS: GABAPENTIN 300 MG CAPSULE PO SCH (20:34)
[2019-07-19] MEDS: LACTATED RINGERS 1,000 ML IV SCH ×2 (01:53→17:43)
[2019-07-19] MEDS: HYDROmorphone 2 MG/ML VIAL IV PRN ×4 (03:37→19:12)
[2019-07-19] MEDS: ONDANSETRON 4 MG/2 ML VIAL IV PRN (04:05)
[2019-07-19] MEDS: 0.9 % SODIUM CHLORIDE 10 ML SYRINGE IV SCH ×3 (04:22→21:08)
[2019-07-19 06:42] LABS: Basophils # (Auto) 0.04 K/mcL (0.00-0.30); Basophils % (Auto) 0.3 % (0.0-2.0); Eosinophils # (Auto) 0.07 K/mcL (0.00-0.70); Eosinophils % (Auto) 0.6 % (0.0-7.0); Granulocytes % (Auto) 71.3 % (38.0-78.0); Hematocrit 43.3 % (40.1-51.0); Hemoglobin 14.9 g/dL (13.7-17.5); Lymphocytes # (Auto) 2.28 K/mcL (1.50-4.80); Lymphocytes % (Auto) 19.1 % (15.5-49.0); Mean Cell Volume 91.2 fL (80.0-100.0); Mean Corpuscular HGB Conc 34.4 g/dL (31.0-36.0); Mean Platelet Volume 10.4 fL (7.4-10.4); Monocytes # (Auto) 1.04 K/mcL (0.10-0.90); Monocytes % (Auto) 8.7 % (1.0-12.0); Platelet Count 269 K/mcL (140-440); RBC 4.75 M/mcL (4.63-6.08)
[2019-07-19 06:43] LABS: Bilirubin,Direct < 0.2 mg/dL (0.0-0.3); Chloride 100 mmol/L (96-108)
[2019-07-19 06:44] LABS: ALT/SGPT < 5 U/l (0-40); AST/SGOT 17 U/l (0-37); Albumin/Globulin Ratio 1.3 (1.0-2.3); Alkaline Phosphatase 68 U/L (39-117); Bilirubin,Total 0.9 mg/dL (0.0-1.0); Blood Urea Nitrogen 11 mg/dl (6-20); Calcium 8.8 mg/dl (8.6-10.4); Carbon Dioxide 24 mmol/L (22-30); Globulin 3.1 gm/dL (2.2-3.7); Glomerular Filtration Rate 101; Glucose 97 mg/dL (70-105); Lactate Dehydrogenase 158 U/L (94-250); Phosphorous 4.2 mg/dL (2.7-4.5); Triglycerides 125 mg/dl (<150); Uric Acid 4.3 mg/dL (2.5-8.0)
[2019-07-19] MEDS: PANTOPRAZOLE 40 MG TABLET PO SCH ×2 (07:13→17:42)
[2019-07-19] MEDS: BACLOFEN 10 MG TABLET PO PRN ×2 (07:14→14:52)
[2019-07-19] MEDS ORDERED: PANTOPRAZOLE 40 MG TABLET PO SCH (07:30)
[2019-07-19] MEDS: GABAPENTIN 300 MG CAPSULE PO SCH ×2 (09:08→21:07)
[2019-07-19] MEDS: FEXOFENADINE 180 MG TABLET PO SCH (09:08)
[2019-07-19] MEDS: CARBIDOPA PO SCH ×3 (09:10→21:07)
[2019-07-19] MEDS: ENTACAPONE 200 MG PO SCH ×3 (09:10→21:07)
[2019-07-19] MEDS: LEVODOPA PO SCH ×3 (09:10→21:07)
[2019-07-19] MEDS: Vilazodone Hcl [Viibryd] 40 MG Tablet PO SCH (09:19)
[2019-07-19] MEDS: Vilazodone Hcl [Viibryd] 20 MG Tablet PO SCH (09:19)
[2019-07-19] MEDS: MINOCYCLINE HCL 50 MG CAPSULE PO SCH (09:24)
[2019-07-19] MEDS: LORazepam 2 MG/ML VIAL IV PRN (09:45)
--- NOTE | 2019-07-19 10:42 | General Surgery Progress Note ---
Subjective Patient reports: feels better, pain is less, tolerating liquids well, flatus, afebrile Narrative: Note initiated : 07/19/19 at 10:40 am Service Date, if different from initiated Date: [] Patient: Se Mccoy 49 y/o M admitted on 07/17/19 for Incisional Hernia Repair. Chief Complaint: [Patient feels better. He states that his pain is improved. He does not have any nausea and is tolerating liquids well. No shortness of breath or cough. White blood count 12, hemoglobin 14.9, and patient panel genna l. He has been afebrile] Objective Temp Pulse Resp BP Pulse Ox 98.6 F 82 18 141/76 96 07/19/19 06:29 07/19/19 06:29 07/19/19 08:00 07/19/19 06:29 07/19/19 08:00 - Additional Data Intake & Output - Last 24 hours: Intake & Output 07/17/19 07/18/19 07/19/19 07/20/19 05:59 05:59 05:59 05:59 Intake Total 2700 2460 Output Total 3245 3640 1875 Balance -545 -1180 -1875 Weight 187 lb 8 oz 188 lb 188 lb - General physical appearance well developed, well nourished, moderate pain - Eyes PERRL, normal ocular movement - ENT normal pinna, normal nares, normal mucosa, no hearing loss, no congestion - Neck no masses (I'll get some morning), no bruits, trachea midline, no lymphadenopath y, no venous distension - Respiratory normal expansion, normal respiratory effort, clear to auscultation - Cardiovascular Cardiovascular exam: Present: normal rate and rhythm, RRR, +S1, +S2. Absent: JVD, tachycardia - Abdomen tender (moderate tenderness to incision and lateral abdomen; active bowel sounds 1 and bring it to 3 hours), bowel sounds (present), surgical scars (none), masses (none) - Integumentary no rash, no growths, no abnormal pigmentation - Neurologic normal coordination, normal sensation - Musculoskeletal normal gait, normal posture - Psychiatric oriented to time, oriented to person, oriented to place, speech is normal, memory intact - Labs 07/19/19 05:22 07/19/19 05:22 Diabetes panel 07/19/19 Range/Units 05:22 Sodium 135 (133-145) mmol/L Potassium 4.0 (3.3-5.1) mmol/L Chloride 100 (96-108) mmol/L Carbon Dioxide 24 (22-30) mmol/L BUN 11 (6-20) mg/dl Creatinine 0.9 (0.7-1.2) mg/dl Glucose 97 (70-105) mg/dL Calcium 8.8 (8.6-10.4) mg/dl AST 17 (0-37) U/l ALT < 5 (0-40) U/l Alkaline Phosphatase 68 (39-117) U/L Total Protein 7.1 (5.9-8.4) gm/dL Albumin 4.0 (3.2-5.2) gm/dL Triglycerides 125 (<150) mg/dl Calcium panel 07/19/19 Range/Units 05:22 Calcium 8.8 (8.6-10.4) mg/dl Phosphorus 4.2 (2.7-4.5) mg/dL Albumin 4.0 (3.2-5.2) gm/dL Pituitary panel 07/19/19 Range/Units 05:22 Sodium 135 (133-145) mmol/L Potassium 4.0 (3.3-5.1) mmol/L Chloride 100 (96-108) mmol/L Carbon Dioxide 24 (22-30) mmol/L BUN 11 (6-20) mg/dl Creatinine 0.9 (0.7-1.2) mg/dl Glucose 97 (70-105) mg/dL Calcium 8.8 (8.6-10.4) mg/dl Adrenal panel 07/19/19 Range/Units 05:22 Sodium 135 (133-145) mmol/L Potassium 4.0 (3.3-5.1) mmol/L Chloride 100 (96-108) mmol/L Carbon Dioxide 24 (22-30) mmol/L BUN 11 (6-20) mg/dl Creatinine 0.9 (0.7-1.2) mg/dl Glucose 97 (70-105) mg/dL Calcium 8.8 (8.6-10.4) mg/dl Total Bilirubin 0.9 (0.0-1.0) mg/dL AST 17 (0-37) U/l ALT < 5 (0-40) U/l Alkaline Phosphatase 68 (39-117) U/L Total Protein 7.1 (5.9-8.4) gm/dL Albumin 4.0 (3.2-5.2) gm/dL Assessment and Plan (1) Incisional hernia of anterior abdominal wall without obstruction or gangrene Status: Acute Assessment and plan: Continue present therapy. MiraLAX 3 times daily. Advanced to regular diet Current Visit: Yes (2) Parkinson's disease Problem details: with profound fatigue and lethargy, requiring stimulants for control Status: Chronic Current Visit: No - Time Spent With Patient Total time spent is greater than 50% in coordination of care (as documented) at patient's floor/unit and/or counseling patient:
[2019-07-19] MEDS: POLYETHYLENE GLYCOL 3350 17 GM PACKET PO SCH ×2 (14:47→21:06)
[2019-07-19] MEDS: ARMODAFINIL 200 MG PO SCH (14:47)
[2019-07-19] MEDS: MONTELUKAST 10 MG TABLET PO SCH (21:07)
[2019-07-20] MEDS: HYDROmorphone 2 MG/ML VIAL IV PRN ×4 (00:15→20:41)
[2019-07-20] MEDS: BACLOFEN 10 MG TABLET PO PRN ×4 (00:15→23:10)
[2019-07-20] MEDS: 0.9 % SODIUM CHLORIDE 10 ML SYRINGE IV SCH ×3 (05:20→20:44)
[2019-07-20] MEDS: ONDANSETRON 4 MG/2 ML VIAL IV PRN ×3 (05:33→18:30)
[2019-07-20 06:13] LABS: Basophils # (Auto) 0.07 K/mcL (0.00-0.30); Basophils % (Auto) 0.7 % (0.0-2.0); Eosinophils # (Auto) 0.14 K/mcL (0.00-0.70); Eosinophils % (Auto) 1.4 % (0.0-7.0); Granulocytes % (Auto) 61.9 % (38.0-78.0); Hemoglobin 15.9 g/dL (13.7-17.5); Lymphocytes # (Auto) 2.61 K/mcL (1.50-4.80); Lymphocytes % (Auto) 26.2 % (15.5-49.0); Mean Cell Volume 89.8 fL (80.0-100.0); Mean Corpuscular HGB Conc 35.3 g/dL (31.0-36.0); Mean Platelet Volume 10.6 fL (7.4-10.4); Monocytes # (Auto) 0.98 K/mcL (0.10-0.90); Monocytes % (Auto) 9.8 % (1.0-12.0); Platelet Count 277 K/mcL (140-440); RBC 5.01 M/mcL (4.63-6.08); Red Cell Distribution Width 11.9 % (11.5-14.5)
[2019-07-20] MEDS: LACTATED RINGERS 1,000 ML IV SCH ×3 (06:15→23:12)
[2019-07-20 06:47] LABS: ALT/SGPT 9 U/l (0-40); AST/SGOT 23 U/l (0-37); Albumin 4.2 gm/dL (3.2-5.2); Albumin/Globulin Ratio 1.3 (1.0-2.3); Alkaline Phosphatase 73 U/L (39-117); Bilirubin,Direct < 0.2 mg/dL (0.0-0.3); Bilirubin,Total 0.8 mg/dL (0.0-1.0); Blood Urea Nitrogen 11 mg/dl (6-20); Calcium 9.6 mg/dl (8.6-10.4); Carbon Dioxide 26 mmol/L (22-30); Chloride 99 mmol/L (96-108); Globulin 3.3 gm/dL (2.2-3.7); Glomerular Filtration Rate 106; Glucose 106 mg/dL (70-105); Lactate Dehydrogenase 158 U/L (94-250); Phosphorous 4.1 mg/dL (2.7-4.5); Triglycerides 116 mg/dl (<150); Uric Acid 4.2 mg/dL (2.5-8.0)
[2019-07-20] MEDS: PANTOPRAZOLE 40 MG TABLET PO SCH ×2 (08:11→17:08)
[2019-07-20] MEDS: FEXOFENADINE 180 MG TABLET PO SCH (09:17)
[2019-07-20] MEDS: POLYETHYLENE GLYCOL 3350 17 GM PACKET PO SCH ×3 (09:17→20:44)
[2019-07-20] MEDS: ARMODAFINIL 200 MG PO SCH (09:18)
[2019-07-20] MEDS: Vilazodone Hcl [Viibryd] 40 MG Tablet PO SCH (09:18)
[2019-07-20] MEDS: GABAPENTIN 300 MG CAPSULE PO SCH ×2 (09:18→20:43)
[2019-07-20] MEDS: ENTACAPONE 200 MG PO SCH ×3 (09:19→20:42)
[2019-07-20] MEDS: LEVODOPA PO SCH ×3 (09:19→20:42)
[2019-07-20] MEDS: Vilazodone Hcl [Viibryd] 20 MG Tablet PO SCH (09:19)
[2019-07-20] MEDS: CARBIDOPA PO SCH ×3 (09:19→20:42)
[2019-07-20] MEDS: MINOCYCLINE HCL 50 MG CAPSULE PO SCH (09:20)
[2019-07-20] MEDS: LORazepam 2 MG/ML VIAL IV PRN (10:19)
--- NOTE | 2019-07-20 17:29 | General Surgery Progress Note ---
Subjective Patient reports: feels better, pain is less, flatus, afebrile Narrative: Note initiated : 07/20/19 at 5:27 pm Service Date, if different from initiated Date: [] Patient: Se Mccoy 49 y/o M admitted on 07/17/19 for Incisional Hernia Repair. Chief Complaint: [patient is stable, except for poor intestinal activity. He has some bloating still. White blood count 10, hemoglobin 15.9] Objective Temp Pulse Resp BP Pulse Ox 98.7 F 84 18 121/74 95 07/20/19 15:32 07/20/19 15:32 07/20/19 15:32 07/20/19 15:32 07/20/19 08:00 - Additional Data Intake & Output - Last 24 hours: Intake & Output 07/18/19 07/19/19 07/20/19 07/21/19 05:59 05:59 05:59 05:59 Intake Total 2700 2460 2910 1240 Output Total 3245 3640 6140 525 Balance -545 -1180 -3230 715 Weight 188 lb 188 lb 180 lb 8 oz - General physical appearance well developed, well nourished, no distress - Eyes PERRL, normal ocular movement - ENT normal pinna, normal nares, normal mucosa, no hearing loss, no congestion - Neck no masses, no bruits, trachea midline, no lymphadenopathy, no venous distension - Respiratory normal expansion, normal respiratory effort, clear to auscultation - Cardiovascular Cardiovascular exam: Present: normal rate and rhythm, RRR, +S1, +S2. Absent: JVD, tachycardia - Abdomen tender (moderate diffuse tenderness), bowel sounds (present), surgical scars (none), masses (none), distended (. Moderate distention) - Rectum normal sphincter tone, no hemorrhoids, no tenderness, no masses, no bleeding - Integumentary no rash, no growths, no abnormal pigmentation - Neurologic normal coordination, normal sensation - Musculoskeletal normal gait, normal posture - Psychiatric oriented to time, oriented to person, oriented to place, speech is normal, memory intact - Labs 07/20/19 04:48 07/20/19 04:48 Diabetes panel 07/20/19 Range/Units 04:48 Sodium 136 (133-145) mmol/L Potassium 4.1 (3.3-5.1) mmol/L Chloride 99 (96-108) mmol/L Carbon Dioxide 26 (22-30) mmol/L BUN 11 (6-20) mg/dl Creatinine 0.8 (0.7-1.2) mg/dl Glucose 106 H (70-105) mg/dL Calcium 9.6 (8.6-10.4) mg/dl AST 23 (0-37) U/l ALT 9 (0-40) U/l Alkaline Phosphatase 73 (39-117) U/L Total Protein 7.5 (5.9-8.4) gm/dL Albumin 4.2 (3.2-5.2) gm/dL Triglycerides 116 (<150) mg/dl Calcium panel 07/20/19 Range/Units 04:48 Calcium 9.6 (8.6-10.4) mg/dl Phosphorus 4.1 (2.7-4.5) mg/dL Albumin 4.2 (3.2-5.2) gm/dL Pituitary panel 07/20/19 Range/Units 04:48 Sodium 136 (133-145) mmol/L Potassium 4.1 (3.3-5.1) mmol/L Chloride 99 (96-108) mmol/L Carbon Dioxide 26 (22-30) mmol/L BUN 11 (6-20) mg/dl Creatinine 0.8 (0.7-1.2) mg/dl Glucose 106 H (70-105) mg/dL Calcium 9.6 (8.6-10.4) mg/dl Adrenal panel 07/20/19 Range/Units 04:48 Sodium 136 (133-145) mmol/L Potassium 4.1 (3.3-5.1) mmol/L Chloride 99 (96-108) mmol/L Carbon Dioxide 26 (22-30) mmol/L BUN 11 (6-20) mg/dl Creatinine 0.8 (0.7-1.2) mg/dl Glucose 106 H (70-105) mg/dL Calcium 9.6 (8.6-10.4) mg/dl Total Bilirubin 0.8 (0.0-1.0) mg/dL AST 23 (0-37) U/l ALT 9 (0-40) U/l Alkaline Phosphatase 73 (39-117) U/L Total Protein 7.5 (5.9-8.4) gm/dL Albumin 4.2 (3.2-5.2) gm/dL Assessment and Plan (1) Incisional hernia of anterior abdominal wall without obstruction or gangrene Status: Acute Assessment and plan: Continue present therapy. MiraLAX 3 times daily. Advanced to regular diet Current Visit: Yes (2) Parkinson's disease Problem details: with profound fatigue and lethargy, requiring stimulants for control Status: Chronic Current Visit: No - Time Spent With Patient Total time spent is greater than 50% in coordination of care (as documented) at patient's floor/unit and/or counseling patient:
[2019-07-20] MEDS ORDERED: MAGNESIUM CITRATE 300 ML ORAL.SOL PO ONE (17:31)
[2019-07-20] MEDS: MONTELUKAST 10 MG TABLET PO SCH (20:43)
[2019-07-21] MEDS: HYDROmorphone 2 MG/ML VIAL IV PRN (03:45)
[2019-07-21 07:24] LABS: Basophils # (Auto) 0.07 K/mcL (0.00-0.30); Basophils % (Auto) 0.7 % (0.0-2.0); Eosinophils # (Auto) 0.21 K/mcL (0.00-0.70); Eosinophils % (Auto) 2.1 % (0.0-7.0); Granulocytes % (Auto) 61.5 % (38.0-78.0); Hematocrit 43.8 % (40.1-51.0); Hemoglobin 15.3 g/dL (13.7-17.5); Lymphocytes # (Auto) 2.75 K/mcL (1.50-4.80); Lymphocytes % (Auto) 27.1 % (15.5-49.0); Mean Cell Volume 90.7 fL (80.0-100.0); Mean Corpuscular HGB Conc 34.9 g/dL (31.0-36.0); Mean Platelet Volume 10.7 fL (7.4-10.4); Monocytes # (Auto) 0.87 K/mcL (0.10-0.90); Monocytes % (Auto) 8.6 % (1.0-12.0); Platelet Count 271 K/mcL (140-440); RBC 4.83 M/mcL (4.63-6.08); Red Cell Distribution Width 11.9 % (11.5-14.5); WBC 10.1 K/mcL (4.50-11.00)
[2019-07-21 07:44] LABS: Bilirubin,Direct < 0.2 mg/dL (0.0-0.3); Chloride 99 mmol/L (96-108)
[2019-07-21] MEDS: PANTOPRAZOLE 40 MG TABLET PO SCH ×2 (07:44→17:19)
[2019-07-21] MEDS: 0.9 % SODIUM CHLORIDE 10 ML SYRINGE IV SCH ×2 (07:44→15:44)
[2019-07-21 07:47] LABS: ALT/SGPT 19 U/l (0-40); AST/SGOT 23 U/l (0-37); Albumin 3.9 gm/dL (3.2-5.2); Albumin/Globulin Ratio 1.3 (1.0-2.3); Alkaline Phosphatase 67 U/L (39-117); Bilirubin,Total 0.7 mg/dL (0.0-1.0); Blood Urea Nitrogen 10 mg/dl (6-20); Calcium 9.1 mg/dl (8.6-10.4); Carbon Dioxide 26 mmol/L (22-30); Globulin 3.1 gm/dL (2.2-3.7); Glomerular Filtration Rate 101; Glucose 105 mg/dL (70-105); Lactate Dehydrogenase 183 U/L (94-250); Triglycerides 109 mg/dl (<150); Uric Acid 4.1 mg/dL (2.5-8.0)
[2019-07-21] MEDS ORDERED: MAGNESIUM CITRATE 300 ML ORAL.SOL PO PRN (09:00)
[2019-07-21] MEDS: FEXOFENADINE 180 MG TABLET PO SCH (09:46)
[2019-07-21] MEDS: GABAPENTIN 300 MG CAPSULE PO SCH (09:46)
[2019-07-21] MEDS: Vilazodone Hcl [Viibryd] 40 MG Tablet PO SCH (09:47)
[2019-07-21] MEDS: CARBIDOPA PO SCH ×2 (09:48→15:43)
[2019-07-21] MEDS: ARMODAFINIL 200 MG PO SCH (09:48)
[2019-07-21] MEDS: Vilazodone Hcl [Viibryd] 20 MG Tablet PO SCH (09:48)
[2019-07-21] MEDS: LEVODOPA PO SCH ×2 (09:48→15:43)
[2019-07-21] MEDS: ENTACAPONE 200 MG PO SCH ×2 (09:48→15:43)
[2019-07-21] MEDS: BACLOFEN 10 MG TABLET PO PRN (09:53)
[2019-07-21] MEDS: LORazepam 2 MG/ML VIAL IV PRN ×2 (10:07→15:54)
[2019-07-21] MEDS: MINOCYCLINE HCL 50 MG CAPSULE PO SCH (10:10)
[2019-07-21] MEDS: POLYETHYLENE GLYCOL 3350 17 GM PACKET PO SCH ×2 (10:10→15:43)
[2019-07-21] MEDS: LACTATED RINGERS 1,000 ML IV SCH ×2 (11:13→11:56)
[2019-07-21] MEDS: ALPRAZolam 0.5 MG TABLET PO PRN (13:20)
--- NOTE | 2019-07-21 16:53 | Discharge Summary ---
Providers - Providers Patient information: Note initiated : 07/21/19 at 4:51 pm Service Date, if different from initiated Date: [] Patient: Se Mccoy 49 y/o M admitted on 07/17/19 for Incisional Hernia Repair. Chief Complaint: [] Date of admission: 07/17/19 Discharge date: 07/21/19 Attending physician: Shanell Kumar Hospitalization Hospital Course: 49-year-old male who was admitted on July 09 To undergoing mesh graft repair of incisional hernia with bilateral separation of components. He had moderate ileus postoperatively but has now had full return of intestinal activity. He is tolerating diet, having regular bowel movements. Drainage from his ELEAZAR drains with serosanguineous but for small. His incision looks good and his pain is well controlled. Patient is stable for discharge home Discharge diagnosis: incisional hernia Secondary discharge diagnosis: Parkinson's disease. Depression Reason for admission: postoperative incisional hernia repair with bilateral separation of compone Procedures: Incisional hernia repair with mesh and bilateral separation of components Pertinent studies/significant findings: none Complications: None Exam Temp Pulse Resp BP Pulse Ox 98.5 F 85 16 118/73 95 07/21/19 08:00 07/21/19 08:00 07/21/19 08:00 07/21/19 08:00 07/21/19 08:00 - General physical appearance well developed, well nourished, no distress - Eyes PERRL, normal ocular movement - ENT normal pinna, normal nares, normal mucosa, no hearing loss, no congestion - Head Head exam IM: Present: atraumatic, normocephalic - Neck no masses, no bruits, trachea midline, no lymphadenopathy, no venous distension - Cardiovascular Cardiovascular exam IM: Present: normal rate and rhythm - Respiratory normal expansion, normal respiratory effort, clear to auscultation - Abdomen Abdomen: Present: soft, tender (moderate tenderness midline incision anterolateral abdominal wall, bilateral; good active bowel sounds; ELEAZAR drainage is serosanguineous), bowel sounds Hernia: Present: none - Genitourinary Present: normal penis with no external lesions - Integumentary Present: no rash, no growths, no abnormal pigmentation - Neurologic Present: normal coordination, normal sensation - Musculoskeletal Present: normal gait, normal posture - Psychiatric Present: oriented to time, oriented to person, oriented to place, speech is normal, memory intact Discharge Plan - Patient/Caregiver Discharge Instructions Activity: increase activity as tolerated Diet: Regular Diet (the) Additional Instructions: empty ELEAZAR drains once or twice daily as needed. Office appointment in 2 weeks Prescriptions: Meperidine [Demerol] 50 mg PO QIDP PRN #20 tablet PRN Reason: Pain Level > 6 Transmission Status: Received by [facility] - Follow up Plan Follow up with: Shanell Kumar MD [Physician] - 08/03/19 9:45 am Disposition: Home, Self-Care Prognosis: Good Rehab Potential: Good I certify that the patient requires SNF services.: No Overall status at discharge: patient is progressing back to baseline Pending Studies Resuscitation Status Full Code Diet GI Soft/Transitional Start SatJul 18 1043 Alprazolam (Xanax) 0.5 mg PO TIDP PRN PRN Reason: Anxiety Last Admin: 07/21/19 13:20 Dose: 0.5 mg Documented by: Admin: 07/18/19 12:32 Dose: 0.5 mg Documented by: KRISTYN Baclofen (Lioresal) 20 mg PO TIDP PRN PRN Reason: muscle spasm Last Admin: 07/21/19 09:53 Dose: 20 mg Documented by: Admin: 07/20/19 23:10 Dose: 20 mg Documented by: Admin: 07/20/19 14:44 Dose: 20 mg Documented by: Admin: 07/20/19 05:20 Dose: 20 mg Documented by: Admin: 07/20/19 00:15 Dose: 20 mg Documented by: Admin: 07/19/19 14:52 Dose: 20 mg Documented by: Admin: 07/19/19 07:14 Dose: 20 mg Documented by: Admin: 07/18/19 20:47 Dose: 20 mg Documented by: Admin: 07/18/19 12:32 Dose: 20 mg Documented by: KRISTYN Fexofenadine HCl (Koki) 360 mg PO DAILY JOHNY Last Admin: 07/21/19 09:46 Dose: 360 mg Documented by: Admin: 07/20/19 09:17 Dose: 360 mg Documented by: Admin: 07/19/19 09:08 Dose: 360 mg Documented by: JOSÉ Gabapentin (Neurontin) 300 mg PO BID JOHNY Last Admin: 07/21/19 09:46 Dose: 300 mg Documented by: Admin: 07/20/19 20:43 Dose: 300 mg Documented by: Admin: 07/20/19 09:18 Dose: 300 mg Documented by: Admin: 07/19/19 21:07 Dose: 300 mg Documented by: Admin: 07/19/19 09:08 Dose: 300 mg Documented by: Admin: 07/18/19 20:34 Dose: 300 mg Documented by: SHANTANU Hydromorphone HCl (Dilaudid) 1 mg IV Q2HP PRN; Protocol PRN Reason: Per Pain Protocol Last Admin: 07/21/19 03:45 Dose: 1 mg Documented by: Admin: 07/20/19 20:41 Dose: 1 mg Documented by: Admin: 07/20/19 14:42 Dose: 1 mg Documented by: Admin: 07/20/19 05:20 Dose: 1 mg Documented by: Admin: 07/20/19 00:15 Dose: 1 mg Documented by: Admin: 07/19/19 19:12 Dose: 1 mg Documented by: Admin: 07/19/19 15:44 Dose: 1 mg Documented by: Admin: 07/19/19 07:21 Dose: 1 mg Documented by: Admin: 07/19/19 03:37 Dose: 1 mg Documented by: Admin: 07/18/19 20:47 Dose: 1 mg Documented by: Admin: 07/18/19 18:23 Dose: 1 mg Documented by: Admin: 07/18/19 15:14 Dose: 1 mg Documented by: Admin: 07/18/19 12:31 Dose: 1 mg Documented by: Admin: 07/18/19 10:16 Dose: 1 mg Documented by: Admin: 07/18/19 07:30 Dose: 1 mg Documented by: Admin: 07/18/19 01:48 Dose: 1 mg Documented by: Admin: 07/17/19 23:18 Dose: 1 mg Documented by: Admin: 07/17/19 17:28 Dose: 1 mg Documented by: Admin: 07/17/19 12:25 Dose: 1 mg Documented by: IZABEL Lactated Ringer's (Lactated Ringers) 1,000 mls @ 75 mls/hr IV .[id number] JOHNY Last Admin: 07/21/19 11:56 Dose: 75 mls/hr Documented by: Infusion: 07/21/19 11:56 Dose: 75 mls/hr Documented by: Admin: 07/21/19 11:13 Dose: Not Given Documented by: Admin: 07/20/19 23:12 Dose: 75 mls/hr Documented by: Infusion: 07/20/19 22:42 Dose: 75 mls/hr Documented by: Admin: 07/20/19 09:22 Dose: 75 mls/hr Documented by: Infusion: 07/20/19 07:03 Dose: 75 mls/hr Documented by: Admin: 07/20/19 06:15 Dose: Not Given Documented by: Admin: 07/19/19 17:43 Dose: 75 mls/hr Documented by: Infusion: 07/19/19 15:13 Dose: 75 mls/hr Documented by: Admin: 07/19/19 01:53 Dose: 75 mls/hr Documented by: Infusion: 07/19/19 01:15 Dose: 75 mls/hr Documented by: Admin: 07/18/19 11:55 Dose: 75 mls/hr Documented by: Admin: 07/18/19 01:48 Dose: Not Given Documented by: Infusion: 07/18/19 00:31 Dose: 75 mls/hr Documented by: Admin: 07/17/19 11:11 Dose: 75 mls/hr Documented by: IZABEL Lorazepam (Ativan) 1 mg IV Q6HP PRN PRN Reason: ANXIETY/SEDATION Last Admin: 07/21/19 15:54 Dose: 1 mg Documented by: Admin: 07/21/19 10:07 Dose: 1 mg Documented by: Admin: 07/20/19 10:19 Dose: 1 mg Documented by: Admin: 07/19/19 09:45 Dose: 1 mg Documented by: Admin: 07/18/19 07:42 Dose: 1 mg Documented by: KRISTYN Minocycline HCl (Minocycline Hcl) 50 mg PO QDAY [facility] Last Admin: 07/21/19 10:10 Dose: 50 mg Documented by: Admin: 07/20/19 09:20 Dose: Not Given Documented by: Admin: 07/19/19 09:24 Dose: Not Given Documented by: JOSÉ Montelukast Sodium (Singular) 10 mg PO HS [facility] Last Admin: 07/20/19 20:43 Dose: 10 mg Documented by: Admin: 07/19/19 21:07 Dose: 10 mg Documented by: Admin: 07/18/19 20:34 Dose: 10 mg Documented by: SHANTANU Ondansetron HCl (Zofran) 4 mg IV Q4HP PRN; Protocol PRN Reason: Nausea And Vomiting Last Admin: 07/20/19 18:30 Dose: 4 mg Documented by: Admin: 07/20/19 14:05 Dose: 4 mg Documented by: Admin: 07/20/19 05:33 Dose: 4 mg Documented by: [email or web address] Admin: 07/19/19 04:05 Dose: 4 mg Documented by: SHANTANU Pantoprazole Sodium (Protonix) 40 mg PO BIDAC [facility] Last Admin: 07/21/19 07:44 Dose: 40 mg Documented by: Admin: 07/20/19 17:08 Dose: 40 mg Documented by: Admin: 07/20/19 08:11 Dose: 40 mg Documented by: Admin: 07/19/19 17:42 Dose: 40 mg Documented by: Admin: 07/19/19 07:13 Dose: 40 mg Documented by: Admin: 07/18/19 17:48 Dose: 40 mg Documented by: Admin: 07/18/19 07:30 Dose: 40 mg Documented by: Admin: 07/17/19 16:14 Dose: 40 mg Documented by: IZABEL Levodopa 150 Mg/Carbidopa 37.5 Mg/Entacapone 200 Mg Tablet 1 dose PO TID [facility] Last Admin: 07/21/19 15:43 Dose: 1 dose Documented by: Admin: 07/21/19 09:48 Dose: 1 dose Documented by: Admin: 07/20/19 20:42 Dose: 1 dose Documented by: Admin: 07/20/19 14:44 Dose: 1 dose Documented by: Admin: 07/20/19 09:19 Dose: 1 dose Documented by: Admin: 07/19/19 21:07 Dose: 1 dose Documented by: Admin: 07/19/19 14:47 Dose: 1 dose Documented by: Admin: 07/19/19 09:10 Dose: 1 dose Documented by: Admin: 07/18/19 20:34 Dose: 1 dose Documented by: Admin: 07/18/19 15:14 Dose: 1 dose Documented by: KRISTYN Mirabegron [ Myrbetriq] 50 Mg Tablet 1 dose PO DAILY [facility] Last Admin: 07/21/19 09:48 Dose: 1 dose Documented by: Admin: 07/20/19 09:21 Dose: 1 dose Documented by: Admin: 07/19/19 10:04 Dose: Not Given Documented by: JOSÉ Vilazodone Hcl [ Viibryd] 20 Mg Tablet 1 dose PO DAILY [facility] Last Admin: 07/21/19 09:48 Dose: 1 dose Documented by: Admin: 07/20/19 09:19 Dose: 1 dose Documented by: Admin: 07/19/19 09:19 Dose: 1 dose Documented by: JOSÉ Vilazodone Hcl [ Viibryd] 40 Mg Tablet 1 dose PO DAILY [facility] Last Admin: 07/21/19 09:47 Dose: 1 dose Documented by: Admin: 07/20/19 09:18 Dose: 1 dose Documented by: Admin: 07/19/19 09:19 Dose: 1 dose Documented by: JOSÉ Armodafinil [Nuvigil (] 200 Mg Tablet) 1 dose PO DAILY [facility] Last Admin: 07/21/19 09:48 Dose: 1 dose Documented by: Admin: 07/20/19 09:18 Dose: 1 dose Documented by: Admin: 07/19/19 14:47 Dose: Not Given Documented by: JOSÉ Polyethylene Glycol (Miralax) 17 gm PO TID [facility] Last Admin: 07/21/19 15:43 Dose: 17 gm Documented by: Admin: 07/21/19 10:10 Dose: Not Given Documented by: Admin: 07/20/19 20:44 Dose: Not Given Documented by: Admin: 07/20/19 14:44 Dose: 17 gm Documented by: Admin: 07/20/19 09:17 Dose: 17 gm Documented by: Admin: 07/19/19 21:06 Dose: 17 gm Documented by: Admin: 07/19/19 14:47 Dose: 17 gm Documented by: JOSÉ Promethazine HCl (Phenergan) 12.5 mg IV Q4HP PRN; Protocol PRN Reason: Nausea/Vomiting Last Admin: 07/20/19 19:00 Dose: 12.5 mg Documented by: ROCIO Sodium Chloride (Saline Flush) 10 ml IV Q8 JOHNY Last Admin: 07/21/19 15:44 Dose: 10 ml Documented by: Admin: 07/21/19 07:44 Dose: 10 ml Documented by: Admin: 07/20/19 20:44 Dose: Not Given Documented by: Admin: 07/20/19 15:55 Dose: Not Given Documented by: Admin: 07/20/19 05:20 Dose: Not Given Documented by: Admin: 07/19/19 21:08 Dose: Not Given Documented by: Admin: 07/19/19 14:47 Dose: Not Given Documented by: Admin: 07/19/19 04:22 Dose: Not Given Documented by: Admin: 07/18/19 20:34 Dose: Not Given Documented by: Admin: 07/18/19 14:06 Dose: Not Given Documented by: Admin: 07/18/19 05:03 Dose: Not Given Documented by: Admin: 07/17/19 22:24 Dose: Not Given Documented by: Admin: 07/17/19 14:00 Dose: Not Given Documented by: IZABEL Shift Summary 07/21/19 05:32 Shift Summary by Darshana Adorno Slept some tonight; has been having abd pain & cramping most of the night. Did have a very large, loose BM around 0400. Says he feels much better w/the pressure gone. ELEAZAR drains x3 put out a total of 10cc. Has been up ad zina to [facility] as needed. Initialized on 07/21/19 05:32 - END OF NOTE
--- NOTE | 2019-07-30 07:46 | Operative Note ---
DATE OF OPERATION: 07/17/2019 PREOPERATIVE DIAGNOSIS: Incisional hernia. POSTOPERATIVE DIAGNOSIS: Incisional hernia. PROCEDURE: Major incisional hernia repair with mesh with bilateral separation of components. SURGEON: Shanell Kumar M.D. FINDINGS: Near complete herniation of entire midline incision. DESCRIPTION OF PROCEDURE: Under general anesthesia, the patient's abdomen was prepped and draped in a sterile field. The old scar from the previously placed midline incision was excised and the incision was extended down to the fascia. The fascia was opened and the old sutures were removed. There was complete separation of the incision with herniation of omentum through the incision and a poorly developed hernia sac. The omentum was from the peritoneum circumferentially. The medial portion of the fascia and muscle on each side was very attenuated so this was excised. Because of the width of the defect, it was necessary to do a separation of components. The subcutaneous fat was from the rectus fascia back to its junction with the oblique muscle. This was done bilaterally. The fascia of the oblique muscle was then incised starting at the costal margin and extending down to the insertion into the iliac. Once this was done, I was able to pull the muscle and fascia to the midline without major tension. The mesh graft chosen was 15 x 22 cm. It had a silicone back. The wings of the mesh were sutured through and through to the muscle and fascia using interrupted 2-0 Prolene. This required about 20 sutures. These were tied and secured snugly but not snug enough to prevent vascularity to the muscle. A drain was placed over the mesh and then the muscle and fascia was closed with interrupted 0 Prolene. Two drains were placed in the subcutaneous tissue over the muscle and fascia. These were brought out through separate incisions. Subcutaneous tissue was then closed with running 2-0 Monocryl. Skin was closed with brice. Drains were secured with 2-0 nylon. Tegaderm dressings were placed. The patient tolerated the procedure well. He was awakened, transferred to a bed and taken to the postanesthetic care unit in stable, satisfactory condition. LCS:serenity Job ID: [id number] Doc ID: [id number] Shanell Kumar M.D.
== END 2019-07-21 18:44 | disposition home or self-care (01) | DRG 395 ==
LOC: MEDSUROUT 04:51 → MEDSUR 04:52
PROVIDERS: ADMIT Family Medicine Adult Medicine; ATTEND Family Medicine Adult Medicine